=== PATIENT | female | born 1950 | race Caucasian/White ===

== ENCOUNTER 2021-03-18 14:14 | Inpatient (IN) | payer MEDICARE, OTHER ==
[2021-03-18] MEDS ORDERED: Diltiazem 125 MG in Sodium Chloride 0.9% 100 ML IV SCH (14:15)
--- NOTE | 2021-03-18 14:18 | EDM.PDOC ---
<Ender Malik - Last Filed: 03/18/21 18:20> ED HPI GENERAL MEDICAL PROBLEM - General Chief Complaint: Cardiovascular Problem Stated Complaint: EMS Time Seen by Provider: 03/18/21 14:17 - History of Present Illness INITIAL COMMENTS - FREE TEXT/NARRATIVE: History of present illness: [] This patient reports chest pain and headache for 2 or 3 weeks. She had Covid test in [place] today and it is positive. Her heart rate was uncontrolled with atrial fib. She has a history of atrial for but is only on aspirin because when she took blood thinner she bled. The patient has had fever and cough as well. History of CHF COPD and pulmonary embolus. Vital signs are stable and rate controlled with diltiazem at [place] and they called me for transfer. Review of systems: As per history of present illness and below otherwise all systems reviewed and negative. Past medical history: As per history of present illness and as reviewed below otherwise noncontributory. Surgical history: As per history of present illness and as reviewed below otherwise noncontributory. Social history: No reported history of drug or alcohol abuse. Family history: As per history of present illness and as reviewed below otherwise noncontributory. Physical exam: Constitutional - well developed, well-nourished and in no acute distress HEENT - normocephalic, no evidence of trauma - external nose and mouth normal - no mass in neck and no JVD - mucosae moist EYES - full EOM, PERRL, no icterus - no evidence of inflammation, injection, or drainage Respiratory - no respiratory distress, equal bilateral expansion, lungs clear to auscultation and no abnormal lung sounds Cardiovascular - Regular Rhythm with S1 and S2 appreciated and no murmur, gallop or rub. GI - abdomen soft without distension or organomegaly - normal bowel sounds - no guard or rebound Musculoskeletal no gross deformity of long bones or joints - no tenderness, swelling or edema Neurologic - Alert and oriented times four - CN II-XII grossly intact - motor sensory and coordination symmetrically normal Psychiatric - appropriate mood and affect with normal thought content Hematologic - No petechiae or purpura - mucosa appropriate color and sclera not pale - normal nail bed color and refill Integument - no rash or evidence of trauma - normal turgor Diagnostics: [] Therapeutics: [] Impression: [] Plan: [] Definitive disposition and diagnosis as appropriate pending reevaluation and review of above. - Related Data Allergies Allergy/AdvReac Type Severity Reaction Status Date / Time Penicillins Allergy Anaphylactic Verified 03/18/21 14:21 Shock tramadol Allergy Vomiting Verified 03/18/21 14:21 Home Meds: Home Meds hydrOXYzine HCL [Atarax] 25 mg PO Q8H PRN #15 tab 03/18/21 [Rx] ED ROS GENERAL - Review of Systems Review Of Systems: Comprehensive ROS is negative, except as noted in HPI. ED EXAM, GENERAL - Physical Exam Exam: See Below Free Text/Narrative:: My physical exam is in the HPI. #1 Interpretation EKG Interpretation Comments: EKG performed 03/18/2021 at 2:23 PM atrial fibrillation ventricular rate 97 QT duration 585 axis -47 late transition R wave in the precordium with nonspecific ST changes and T abnormalities. Compared to prior today from [place] rate is now controlled. Impression atrial fibrillation with controlled rate Course - Vital Signs Text/Narrative:: 1434 hrs. patient's rate is controlled on diltiazem drip. She still has signif icant chest pain. The patient has not been on anticoagulants for atrial for because she bleeds. The patient is waiting for CT of the chest and repeat troponin after which time she will be placed in our ICU unless some contraindication arises. At the end of my shift the CT report is pending and my partner will write the orders to admit to Dr. Sharp the ICU. Departure - Departure Disposition: Admitted As Inpatient 65 Clinical Impression: COVID-19 Prescriptions: hydrOXYzine HCL [Atarax] 25 mg PO Q8H PRN #15 tab PRN Reason: Dizziness Referrals: William Armstrong MD [Primary Care Provider] - Forms: ED Department Discharge <Kimo Palacios - Last Filed: 03/18/21 18:44> Course - Vital Signs Last Recorded V/S: Last Vital Signs Temp 96.7 F L 03/18/21 15:00 Pulse 91 03/18/21 17:48 Resp 20 03/18/21 17:48 BP 123/52 L 03/18/21 17:48 Pulse Ox 92 L 03/18/21 17:48 - Orders/Labs/Meds Orders: Active Orders 24 hr Category Date Time Status Patient Status [ADT] Routine ADT 03/18/21 18:43 Ordered Diltiazem [Cardizem] 100 mg Med 03/18/21 14:27 Active Sodium Chloride 0.9% [Normal Saline] 100 ml IV ASDIRECTED Medication Orders Diltiazem HCl 100 mg/ Sodium (Chloride) 100 mls @ 3.2 mls/hr IV ASDIRECTED [facility] Last Admin: 03/18/21 14:37 Dose: 3.2 mls/hr Documented by: JANIYA Labs: Laboratory Tests 03/18/21 Range/Units 14:36 Troponin I < 0.050 (0.000-0.056) ng/mL Meds: Medications Generic Name Dose Route Start Last Admin Trade Name Freq PRN Reason Stop Dose Admin Diltiazem HCl 100 mg/ Sodium 100 mls @ 3.2 mls/hr 03/18/21 14:27 03/18/21 14:37 Chloride IV 3.2 mls/hr ASDIRECTED [place] Administration Discontinued Medications Generic Name Dose Route Start Last Admin Trade Name Freq PRN Reason Stop Dose Admin Hydromorphone HCl 1 mg 03/18/21 15:04 03/18/21 15:21 Hydromorphone 1 Mg/Ml Syringe IVPUSH 03/18/21 15:05 1 mg ONETIME ONE Administration Diltiazem HCl 125 mg/ Sodium 125 mls @ 4 mls/hr 03/18/21 14:15 Chloride IV ASDIRECTED [facility] Iopamidol 80 ml 03/18/21 18:18 03/18/21 18:19 Iopamidol 755 Mg/Ml 500 Ml Multipack Bottle IVPUSH 03/18/21 18:19 80 ml ONETIME ONE Administration Ondansetron HCl 4 mg 03/18/21 15:03 03/18/21 15:21 Ondansetron 4 Mg/2 Ml Sdv IVPUSH 03/18/21 15:04 4 mg ONETIME ONE Administration Departure - Departure Time of Disposition: 18:44 Condition: Good Sepsis Event Note (ED) - Focused Exam Vital Signs: Vital Signs Temp Pulse Resp BP Pulse Ox 03/18/21 17:48 91 20 123/52 L 92 L 03/18/21 16:35 94 95 03/18/21 15:00 96.7 F L 94 20 116/62 94 L 03/18/21 14:17 97.3 F 99 18 100/83 95 - My Orders Last 24 Hours: My Active Orders 03/18/21 18:43 Patient Status [ADT] Routine - Assessment/Plan Last 24 Hours: My Active Orders 03/18/21 18:43 Patient Status [ADT] Routine
[2021-03-18] MEDS ORDERED: Diltiazem 100 MG in Sodium Chloride 0.9% 100 ML IV SCH ×5 (14:27→19:45)
[2021-03-18] MEDS ORDERED: Ondansetron 4 MG/2 ML SDV IVPUSH ONE (15:03)
[2021-03-18] MEDS ORDERED: HYDROmorphone 1 MG/ML Syringe IVPUSH ONE (15:04)
[2021-03-18] MEDS ORDERED: Iopamidol 755 MG/ML 500 ML Multipack Bottle IVPUSH ONE (18:18)
--- NOTE | 2021-03-18 18:35 | CT ---
INDICATION: COVID positive, history of pulmonary embolism, now with shortness of breath TECHNIQUE: CT chest pulmonary PE protocol acquired with 100 cc Isovue 370 IV contrast. COMPARISON: None FINDINGS: Cardiovascular structures: Normal vascular enhancement of the pulmonary arteries, no sign of pulmonary embolism. Cardiomegaly. No sign of aneurysm in the thoracic aorta. Mediastinum and lin: 1.0 cm prevascular and 1.1 cm right paratracheal lymphadenopathy. Lungs: Diffuse, faint ground-glass opacities. Calcified granuloma right lower lobe. Pleura and pericardium: No effusions. Chest wall and axilla: No mass or adenopathy. Upper abdomen: Status post cholecystectomy. Hepatic steatosis. Bones: Healed left 2nd rib fracture. No acute findings. IMPRESSION: No pulmonary embolism. Faint, diffuse ground-glass opacities may represent infection. Mediastinal adenopathy of unknown etiology. Cardiomegaly. Hepatic steatosis. Status post cholecystectomy. Please note that all CT scans at this facility use dose modulation, iterative reconstruction, and/or weight-based dosing when appropriate to reduce radiation dose to as low as reasonably achievable. Dictated by Nayeli Leblanc MD @ 03/18/2021 6:33:50 PM (Electronically Signed)
[2021-03-18] MEDS ORDERED: Ondansetron 4 MG/2 ML SDV IVPUSH PRN (19:02)
[2021-03-18] MEDS ORDERED: Albuterol/Ipratropium 4 GM Inhalation Spray INH PRN (19:03)
[2021-03-18] MEDS ORDERED: guaiFENesin 100 MG/5 ML Soln 10 ML UD Cup PO PRN (19:07)
--- NOTE | 2021-03-18 19:43 | PCM.HP.2 ---
H&P History of Present Illness - General Date of Service: 03/18/21 Admit Problem/Dx: Admission Diagnosis/Problem Admission Diagnosis/Problem Chest pain - History of Present Illness Initial Comments - Free Text/Narative: The patient is a 70-year-old female who was transferred to [facility] from [place] due to atrial fibrillation with RVR as well as a recent diagnosis of COVID-19 on 03/16. She has a significant past medical history of CHF, COPD, prior pulmonary embolism, HTN, GERD, PUD, Diabetes, Anxiety, depression, [place], aleep apnea, afib, obesity hyperventilation syndrome, and has not received any of her Covid vaccinations. She presented to the [place] emergency room with a 3-week history of worsening chest pain, which is substernal, 7 out of 10 in intensity, dull in nature, and nonradiating. Along with the chest pain, the patient has shortness of breath, productive cough of clear sputum, and fever. While in the ER in [place], she had a troponin done which was negative, but had a positive D-dimer. She also had a chest x-ray which showed an enlarged cardiac silhouette, and an EKG which revealed atrial fibrillation with RVR. As a result the patient was started on 20 mg of Cardizem IV and her heart rate responded and was between 90 and 100. She was then transferred to [place], and in the ER she was started on a Cardizem infusion, 10 mg, and is currently on this regimen. In [place], she had a CT angiogram of the chest in order to rule out pulmonary embolism. The results of the CT angiogram showed no embolus in any of the pulmonary vasculature. - Related Data Allergies/Adverse Reactions: Allergies Allergy/AdvReac Type Severity Reaction Status Date / Time Penicillins Allergy Anaphylactic Verified 03/18/21 14:21 Shock tramadol Allergy Vomiting Verified 03/18/21 14:21 Home Medications: Home Meds hydrOXYzine HCL [Atarax] 25 mg PO Q8H PRN #15 tab 03/18/21 [Rx] Past Medical History Cardiovascular History: Reports: Afib Other Cardiovascular History: pulmonary HTN, diabetes Respiratory History: Reports: COPD Gastrointestinal History: Reports: GERD Endocrine/Metabolic History: Reports: Diabetes, Type II Social & Family History - Tobacco Use Tobacco Use Status *Q: Never Tobacco User - Recreational Drug Use Recreational Drug Use: No H&P Review of Systems - Review of Systems: Review Of Systems: See Below General: Reports: Fever, Weakness, Fatigue Pulmonary: Reports: Shortness of Breath, Wheezing, Cough Cardiovascular: Reports: Chest Pain, Palpitations Gastrointestinal: Denies: Abdominal Pain, Constipation, Diarrhea Genitourinary: Denies: Dysuria Exam - Exam Exam: See Below - Vital Signs Vital Signs: Last Vital Signs Temp 96.7 F L 03/18/21 15:00 Pulse 88 03/18/21 18:51 Resp 20 03/18/21 17:48 BP 128/52 L 03/18/21 18:51 Pulse Ox 92 L 03/18/21 17:48 Weight: 261 lb - Exam General: Alert, Oriented, Mild Distress HEENT: Mucosa Moist & Mentor Lungs: Wheezing Cardiovascular: Irregular Rhythm GI/Abdominal Exam: Normal Bowel Sounds, Soft, Non-Tender - Patient Data Lab Results Last 24 hrs: Laboratory Results - last 24 hr 03/18/21 Range/Units 14:36 Troponin I < 0.050 (0.000-0.056) ng/mL Sepsis Event Note - Evaluation Sepsis Screening Result: No Definite Risk - Focused Exam Vital Signs: Vital Signs Temp Pulse Resp BP Pulse Ox 03/18/21 18:51 88 128/52 L 03/18/21 18:21 91 138/76 03/18/21 17:48 91 20 123/52 L 92 L 03/18/21 17:20 95 91 L 03/18/21 16:35 94 95 03/18/21 15:00 96.7 F L 94 20 116/62 94 L 03/18/21 14:17 97.3 F 99 18 100/83 95 - Problem List (1) Atrial fibrillation with rapid ventricular response SNOMED Code(s): 785705960677406 ICD Code: I48.91 - UNSPECIFIED ATRIAL FIBRILLATION Status: Acute Current Visit: Yes (2) Diabetes SNOMED Code(s): 97764930 ICD Code: E11.9 - TYPE 2 DIABETES MELLITUS WITHOUT COMPLICATIONS Status: Acute Current Visit: Yes (3) COVID-19 SNOMED Code(s): 553030575 ICD Code: U07.1 - COVID-19 Status: Acute Current Visit: Yes Problem List Initiated/Reviewed/Updated: Yes Orders Last 24hrs: Active Orders 24 hr Category Date Time Status Patient Status [ADT] Routine ADT 03/18/21 18:43 Active Antiembolic Devices [RC] PER UNIT ROUTINE Care 03/18/21 19:00 Active Oxygen Therapy [RC] PRN Care 03/18/21 18:57 Active RT Post Treatment Assessment [RC] Click to Edit Care 03/18/21 19:03 Active RT Pre-Treatment Assessment [RC] Click to Edit Care 03/18/21 19:03 Active VTE/DVT Education [RC] PER UNIT ROUTINE Care 03/18/21 18:57 Active Vital Signs [RC] Q4H Care 03/18/21 18:57 Active Acetaminophen [TylenoL] Med 03/18/21 18:57 Active 650 mg PO Q4H PRN Albuterol/Ipratropium [Combivent Respimat] Med 03/18/21 19:03 Active 1 gm INH Q4H PRN Diltiazem [Cardizem] 100 mg Med 03/18/21 14:27 Active Sodium Chloride 0.9% [Normal Saline] 100 ml IV ASDIRECTED Ondansetron [Zofran] Med 03/18/21 19:02 Active 4 mg IVPUSH Q4H PRN Pantoprazole [ProTONIX IV] 40 mg Med 03/18/21 19:15 Active Sodium Chloride 0.9% [Normal Saline] 10 ml IV Q24H Remdesivir 100 mg Med 03/19/21 20:00 Active Sodium Chloride 0.9% [Normal Saline] 100 ml IV Q24H Remdesivir 200 mg Med 03/18/21 20:00 Active Sodium Chloride 0.9% [Normal Saline] 250 ml IV ONETIME dexAMETHasone Med 03/18/21 20:00 Active 6 mg PO Q24H guaiFENesin [Robitussin] Med 03/18/21 19:07 Active 200 mg PO Q6H PRN Sequential Compression Device [OM.PC] Per Unit Routine Oth 03/18/21 18:58 Ordered Resuscitation Status Routine Resus Stat 03/18/21 18:57 Ordered Medication Orders Acetaminophen (Acetaminophen 325 Mg Tab) 650 mg PO Q4H PRN PRN Reason: Pain (Mild 1-3)/fever Albuterol/Ipratropium (Albuterol/Ipratropium 4 Gm Inhalation [place]) 1 gm INH Q4H PRN PRN Reason: Dyspnea Dexamethasone (Dexamethasone 4 Mg Tab) 6 mg PO Q24H [place] Guaifenesin (Guaifenesin 100 Mg/5 Ml Soln 10 Ml Ud Cup) 200 mg PO Q6H PRN PRN Reason: Cough Diltiazem HCl 100 mg/ Sodium (Chloride) 100 mls @ 3.2 mls/hr IV ASDIRECTED [facility] Last Admin: 03/18/21 14:37 Dose: 3.2 mls/hr Documented by: JANIYA Pantoprazole Sodium 40 mg/ (Sodium Chloride) 10 mls @ 300 mls/hr IV Q24H [place] Remdesivir 200 mg/ Sodium (Chloride) 250 mls @ 250 mls/hr IV ONETIME ONE Stop: 03/18/21 20:01 Remdesivir 100 mg/ Sodium (Chloride) 100 mls @ 100 mls/hr IV Q24H [facility] Stop: 03/22/21 20:59 Ondansetron HCl (Ondansetron 4 Mg/2 Ml Sdv) 4 mg IVPUSH Q4H PRN PRN Reason: Nausea/Vomiting Assessment/Plan Comment:: Admit the patient to the ICU, DVT prophylaxis with with SCDs because patient has bleeding issues with PUD, GI prophylaxis with pantoprazole, diabetic diet, DNI/DNR. 1. Atrial fibrillation with RVR -The patient received 20 mg of Cardizem IV while in [place] which brought her heart rate to 90-100 in response. She is currently on 10 mg Cardizem drip and her heart rate is in the 90s. We will eventually convert her to oral Cardizem. She is on telemetry and we will continue to monitor her heart's electrical activity. Her troponins were negative in [place], and an additional troponin was negative here in [place] and thus do not need to be monitored further. 2. COVID-19 pneumonia -The patient has been started on remdesivir, she was given a 200 mg IV loading dose for 8 PM today, and will be given 100 mg IV for 4 doses from days 2-5. She will also be given dexamethasone 6 mg p.o. once a day starting at 8 PM today. She will also be given Combivent every 4 hours for shortness of breath. For cough, Robitussin cough syrup has been added. We will continue to monitor her oxygen levels, and give as needed. For fever and pain, we have added Tylenol 650 as needed. For nausea, we have added Zofran 4 mg IV as needed. 3. Diabetes -ISS, diabetic diet
[2021-03-18] MEDS ORDERED: Dexamethasone 4 MG Tab PO SCH (20:00)
[2021-03-18] MEDS ORDERED: REMDESIVIR 200 MG in Sodium Chloride 0.9% 250 ML IV ONE (20:00)
[2021-03-18] MEDS ORDERED: Glucagon,Human Recombinant 1 MG Vial IM PRN (20:16)
[2021-03-18] MEDS ORDERED: 50% Dextrose in Water 50 ML Syringe IVPUSH PRN (20:16)
[2021-03-18] MEDS: Pantoprazole 40 MG in Sodium Chloride 0.9% 10 ML IV SCH (20:36)
[2021-03-18] MEDS: Insulin Aspart 100 Units/ML 3 ML Pen SUBCUT SCH (21:12)
--- NOTE | 2021-03-18 22:29 | PN ---
THC Physician - Brief Progress [id number]/24/2021 22:24[facility] Lyssa del cid, [place] - ANGEL (SADAF) - ANGEL BOODARIN MCGEE, Covid +Date of Service 03/18/2021 22:24HPI/Ev ents of Note 70 y old woman with chest pain found to have AF RVR and COVOD positive; placed on diltia zem. Now rate controlled.On video restingLabs ok from beforeD/w RN- wean diltiazem down further from 2.5 mg/h No PE on CT Not on full antocoagulation for prior F due to bleeding per notesTrop I nlDdimer elevated per reportRemdesivir for COVIDDexamethasone startedSCDDM on sliding scale insulinCheck BMPI nterventions Major-Arrhythmia - evaluation and management, Infection - evaluation and managementElect ronically Signed by: Jay Jay Ayala) on 03/18/2021 22:29
[2021-03-18 23:15] LABS: BLOOD UREA NITROGEN,BUN 11 mg/dL (7.0-18.0); CHLORIDE,CL 97 mmol/L (98-107); GLUCOSE RANDOM 161 mg/dL (74-106); POTASSIUM,K 4.6 mmol/L (3.5-5.1); SODIUM,NA 135 mmol/L (136-145)
[2021-03-18] MEDS: Acetaminophen 325 MG Tab PO PRN (23:39)
[2021-03-19] MEDS ORDERED: Magnesium Sulfate/Water 2 GM in Premix Bag 1 BAG IV ONE (03:52)
--- NOTE | 2021-03-19 05:01 | PN ---
THC Physician - Brief Progress [id number]/25/2021 04:59[facility] maria eugenia Joffre, FLETCHER - ANGEL (SADAF) - DARIN TURK Covid +Date of Service 03/19/2021 04:59HPI/Ev ents of Note HR,BP controlled; wean down diltiazemIf remains stable plan oral medsReplete MgD/w RNInt erventions Major-Electrolyte abnormality - evaluation and management
[2021-03-19 06:51] LABS: HEMOGLOBIN A1C 6.7 %
[2021-03-19 07:09] LABS: BLOOD UREA NITROGEN,BUN 12 mg/dL (7.0-18.0); CHLORIDE,CL 99 mmol/L (98-107); GLUCOSE RANDOM 122 mg/dL (74-106); POTASSIUM,K 4.7 mmol/L (3.5-5.1); SODIUM,NA 137 mmol/L (136-145)
[2021-03-19] MEDS ORDERED: Insulin Aspart 100 Units/ML 3 ML Pen SUBCUT SCH (07:30)
[2021-03-19] MEDS: Insulin Aspart 100 Units/ML 3 ML Pen SUBCUT SCH ×3 (08:29→17:06)
[2021-03-19] MEDS: Dexamethasone 4 MG Tab PO SCH (10:30)
[2021-03-19] MEDS: REMDESIVIR 100 MG in Sodium Chloride 0.9% 100 ML IV SCH (10:30)
[2021-03-19] MEDS ORDERED: Furosemide 40 MG/4 ML VIAL ONE (10:34)
[2021-03-19] MEDS: guaiFENesin/Dextromethorphan 100-10 MG/5 ML Soln 10 ML Cup PO PRN ×2 (10:36→19:30)
[2021-03-19] MEDS: Furosemide 40 MG Tab PO SCH (10:43)
[2021-03-19] MEDS: Metoprolol Tartrate 25 MG Tab PO SCH ×2 (10:44→20:00)
[2021-03-19] MEDS: Diltiazem 120 MG Cap.CD PO SCH (10:47)
--- NOTE | 2021-03-19 13:49 | PCM.PN ---
- General Info Date of Service: 03/19/21 Subjective Update: Patient states she feels warm but denies chills. Per documentation patient temperature 98.1 F. Patient denies nausea, vomiting, abdominal pain, diarrhea. Patient denies chest pain or shortness of breath. Patient states coughing spells. - Review of Systems General: Denies: Fever, Chills Pulmonary: Reports: Cough. Denies: Shortness of Breath Cardiovascular: Denies: Chest Pain, Dyspnea on Exertion, Edema Gastrointestinal: Reports: Decreased Appetite. Denies: Abdominal Pain, Diarrhea, Nausea, Vomiting Neurological: Denies: Confusion, Dizziness, Headache Psychiatric: Denies: Confusion - Patient Data Vitals - Most Recent: Last Vital Signs Temp 98.0 F 03/19/21 12:00 Pulse 90 03/19/21 10:47 Resp 16 03/19/21 12:54 BP 112/47 L 03/19/21 12:54 Pulse Ox 97 03/19/21 12:54 Weight - Most Recent: 258 lb 9.636 oz I&O - Last 24 Hours: Intake & Output 03/18/21 03/19/21 03/19/21 22:59 06:59 14:59 Intake Total 200 Output Total 550 Balance -350 Lab Results Last 24 Hours: Laboratory Results - last 24 hr 03/18/21 03/18/21 03/18/21 Range/Units 14:36 20:39 22:45 WBC (4.0-11.0) K/uL RBC (4.30-5.90) M/uL Hgb (12.0-16.0) g/dL Hct (36.0-46.0) % MCV (80.0-98.0) fL MCH (27.0-32.0) pg MCHC (31.0-37.0) g/dL RDW Std Deviation (28.0-62.0) fl RDW Coeff of Isaias (11.0-15.0) % Plt Count (150-400) K/uL MPV (7.40-12.00) fL Neut % (Auto) (48.0-80.0) % Lymph % (Auto) (16.0-40.0) % [place] % (Auto) (0.0-15.0) % Eos % (Auto) (0.0-7.0) % Baso % (Auto) (0.0-1.5) % Neut # (Auto) (1.4-5.7) K/uL Lymph # (Auto) (0.6-2.4) K/uL [place] # (Auto) (0.0-0.8) K/uL Eos # (Auto) (0.0-0.7) K/uL Baso # (Auto) (0.0-0.1) K/uL Nucleated RBC % /100WBC Nucleated RBCs # K/uL Sodium 135 L (136-145) mmol/L Potassium 4.6 (3.5-5.1) mmol/L Chloride 97 L (98-107) mmol/L Carbon Dioxide 33.0 H (21.0-32.0) mmol/L BUN 11 (7.0-18.0) mg/dL Creatinine 0.9 (0.6-1.0) mg/dL Est Cr Clr Drug Dosing 47.43 mL/min Estimated GFR (MDRD) > 60.0 ml/min Glucose 161 H (74-106) mg/dL POC Glucose 162 H (70-99) mg/dL Hemoglobin A1c (4.5 - 6.2) % Calcium 8.2 L (8.5-10.1) mg/dL Magnesium 1.7 L (1.8-2.4) mg/dL Total Bilirubin (0.2-1.0) mg/dL AST (15-37) IU/L ALT (14-63) IU/L Alkaline Phosphatase (46-116) U/L Troponin I < 0.050 (0.000-0.056) ng/mL Total Protein (6.4-8.2) g/dL Albumin (3.4-5.0) g/dL Globulin (2.6-4.0) g/dL Albumin/Globulin Ratio (0.9-1.6) TSH, Ultra Sensitive (0.36-3.74) uIU/mL 03/19/21 03/19/21 03/19/21 Range/Units 05:30 05:30 05:30 WBC 3.82 L (4.0-11.0) K/uL RBC 4.72 (4.30-5.90) M/uL Hgb 12.5 (12.0-16.0) g/dL Hct 40.7 (36.0-46.0) % MCV 86.2 (80.0-98.0) fL MCH 26.5 L (27.0-32.0) pg MCHC 30.7 L (31.0-37.0) g/dL RDW Std Deviation 47.6 (28.0-62.0) fl RDW Coeff of Isaias 15 (11.0-15.0) % Plt Count 171 (150-400) K/uL MPV 10.90 (7.40-12.00) fL Neut % (Auto) 57.6 (48.0-80.0) % Lymph % (Auto) 28.5 (16.0-40.0) % [place] % (Auto) 13.9 (0.0-15.0) % Eos % (Auto) 0.0 (0.0-7.0) % Baso % (Auto) 0.0 (0.0-1.5) % Neut # (Auto) 2.2 (1.4-5.7) K/uL Lymph # (Auto) 1.1 (0.6-2.4) K/uL [place] # (Auto) 0.5 (0.0-0.8) K/uL Eos # (Auto) 0.0 (0.0-0.7) K/uL Baso # (Auto) 0.0 (0.0-0.1) K/uL Nucleated RBC % 0.0 /100WBC Nucleated RBCs # 0 K/uL Sodium 137 (136-145) mmol/L Potassium 4.7 (3.5-5.1) mmol/L Chloride 99 (98-107) mmol/L Carbon Dioxide 33.0 H (21.0-32.0) mmol/L BUN 12 (7.0-18.0) mg/dL Creatinine 0.9 (0.6-1.0) mg/dL Est Cr Clr Drug Dosing 47.43 mL/min Estimated GFR (MDRD) > 60.0 ml/min Glucose 122 H (74-106) mg/dL POC Glucose (70-99) mg/dL Hemoglobin A1c 6.7 H (4.5 - 6.2) % Calcium 8.3 L (8.5-10.1) mg/dL Magnesium (1.8-2.4) mg/dL Total Bilirubin 0.2 (0.2-1.0) mg/dL AST 45 H (15-37) IU/L ALT 22 (14-63) IU/L Alkaline Phosphatase 77 (46-116) U/L Troponin I (0.000-0.056) ng/mL Total Protein 7.8 (6.4-8.2) g/dL Albumin 3.0 L (3.4-5.0) g/dL Globulin 4.8 H (2.6-4.0) g/dL Albumin/Globulin Ratio 0.6 L (0.9-1.6) TSH, Ultra Sensitive (0.36-3.74) uIU/mL 03/19/21 03/19/21 03/19/21 Range/Units 05:30 06:48 11:05 WBC (4.0-11.0) K/uL RBC (4.30-5.90) M/uL Hgb (12.0-16.0) g/dL Hct (36.0-46.0) % MCV (80.0-98.0) fL MCH (27.0-32.0) pg MCHC (31.0-37.0) g/dL RDW Std Deviation (28.0-62.0) fl RDW Coeff of Isaias (11.0-15.0) % Plt Count (150-400) K/uL MPV (7.40-12.00) fL Neut % (Auto) (48.0-80.0) % Lymph % (Auto) (16.0-40.0) % [place] % (Auto) (0.0-15.0) % Eos % (Auto) (0.0-7.0) % Baso % (Auto) (0.0-1.5) % Neut # (Auto) (1.4-5.7) K/uL Lymph # (Auto) (0.6-2.4) K/uL [place] # (Auto) (0.0-0.8) K/uL Eos # (Auto) (0.0-0.7) K/uL Baso # (Auto) (0.0-0.1) K/uL Nucleated RBC % /100WBC Nucleated RBCs # K/uL Sodium (136-145) mmol/L Potassium (3.5-5.1) mmol/L Chloride (98-107) mmol/L Carbon Dioxide (21.0-32.0) mmol/L BUN (7.0-18.0) mg/dL Creatinine (0.6-1.0) mg/dL Est Cr Clr Drug Dosing mL/min Estimated GFR (MDRD) ml/min Glucose (74-106) mg/dL POC Glucose 120 H (70-99) mg/dL Hemoglobin A1c (4.5 - 6.2) % Calcium (8.5-10.1) mg/dL Magnesium 2.1 (1.8-2.4) mg/dL Total Bilirubin (0.2-1.0) mg/dL AST (15-37) IU/L ALT (14-63) IU/L Alkaline Phosphatase (46-116) U/L Troponin I (0.000-0.056) ng/mL Total Protein (6.4-8.2) g/dL Albumin (3.4-5.0) g/dL Globulin (2.6-4.0) g/dL Albumin/Globulin Ratio (0.9-1.6) TSH, Ultra Sensitive 0.88 (0.36-3.74) uIU/mL 03/19/21 Range/Units 12:24 WBC (4.0-11.0) K/uL RBC (4.30-5.90) M/uL Hgb (12.0-16.0) g/dL Hct (36.0-46.0) % MCV (80.0-98.0) fL MCH (27.0-32.0) pg MCHC (31.0-37.0) g/dL RDW Std Deviation (28.0-62.0) fl RDW Coeff of Isaias (11.0-15.0) % Plt Count (150-400) K/uL MPV (7.40-12.00) fL Neut % (Auto) (48.0-80.0) % Lymph % (Auto) (16.0-40.0) % [place] % (Auto) (0.0-15.0) % Eos % (Auto) (0.0-7.0) % Baso % (Auto) (0.0-1.5) % Neut # (Auto) (1.4-5.7) K/uL Lymph # (Auto) (0.6-2.4) K/uL [place] # (Auto) (0.0-0.8) K/uL Eos # (Auto) (0.0-0.7) K/uL Baso # (Auto) (0.0-0.1) K/uL Nucleated RBC % /100WBC Nucleated RBCs # K/uL Sodium (136-145) mmol/L Potassium (3.5-5.1) mmol/L Chloride (98-107) mmol/L Carbon Dioxide (21.0-32.0) mmol/L BUN (7.0-18.0) mg/dL Creatinine (0.6-1.0) mg/dL Est Cr Clr Drug Dosing mL/min Estimated GFR (MDRD) ml/min Glucose (74-106) mg/dL POC Glucose 115 H (70-99) mg/dL Hemoglobin A1c (4.5 - 6.2) % Calcium (8.5-10.1) mg/dL Magnesium (1.8-2.4) mg/dL Total Bilirubin (0.2-1.0) mg/dL AST (15-37) IU/L ALT (14-63) IU/L Alkaline Phosphatase (46-116) U/L Troponin I (0.000-0.056) ng/mL Total Protein (6.4-8.2) g/dL Albumin (3.4-5.0) g/dL Globulin (2.6-4.0) g/dL Albumin/Globulin Ratio (0.9-1.6) TSH, Ultra Sensitive (0.36-3.74) uIU/mL Med Orders - Current: Current Medications Acetaminophen (Acetaminophen 325 Mg Tab) 650 mg PO Q4H PRN PRN Reason: Pain (Mild 1-3)/fever Last Admin: 03/18/21 23:39 Dose: 650 mg Documented by: Albuterol/Ipratropium (Albuterol/Ipratropium 4 Gm Inhalation [place]) 1 gm INH Q4H PRN PRN Reason: Dyspnea Last Admin: 03/19/21 06:34 Dose: 2 puff Documented by: Dexamethasone (Dexamethasone 4 Mg Tab) 6 mg PO DAILY@1000 [place] Last Admin: 03/19/21 10:30 Dose: 6 mg Documented by: Dextrose/Water (50% Dextrose In Water 50 Ml Syringe) 50 ml IVPUSH ASDIRECTED PRN PRN Reason: Hypoglycemia Diltiazem HCl (Diltiazem 120 Mg Cap.Cd) 120 mg PO DAILY [facility] Last Admin: 03/19/21 10:47 Dose: 120 mg Documented by: Furosemide (Furosemide 40 Mg Tab) 40 mg PO DAILY [facility] Last Admin: 03/19/21 10:43 Dose: 40 mg Documented by: Glucagon (Glucagon,Human Recombinant 1 Mg Vial) 1 mg IM ASDIRECTED PRN PRN Reason: Hypoglycemia Guaifenesin/Dextromethorphan (Guaifenesin/Dextromethorphan 100-10 Mg/5 Ml Soln 10 Ml Cup) 10 ml PO Q4H PRN PRN Reason: Cough Last Admin: 03/19/21 10:36 Dose: 10 ml Documented by: Pantoprazole Sodium 40 mg/ (Sodium Chloride) 10 mls @ 300 mls/hr IV Q24H [facility] Last Admin: 03/18/21 20:36 Dose: 300 mls/hr Documented by: Remdesivir 100 mg/ Sodium (Chloride) 100 mls @ 100 mls/hr IV DAILY@1000 [facility] Stop: 03/22/21 10:59 Last Admin: 03/19/21 10:30 Dose: 100 mls/hr Documented by: Diltiazem HCl 100 mg/ Sodium (Chloride) 100 mls @ 3.2 mls/hr IV NOW [facility]; Pro tocol Insulin Aspart (Insulin Aspart 100 Units/Ml 3 Ml Pen) 0 unit SUBCUT TIDAC [facility]; Protocol Last Admin: 03/19/21 12:36 Dose: Not Given Documented by: Metoprolol Tartrate (Metoprolol Tartrate 25 Mg Tab) 25 mg PO Q12HR [facility] Last Admin: 03/19/21 10:44 Dose: 25 mg Documented by: Ondansetron HCl (Ondansetron 4 Mg/2 Ml Sdv) 4 mg IVPUSH Q4H PRN PRN Reason: Nausea/Vomiting Discontinued Medications Dexamethasone (Dexamethasone 4 Mg Tab) 6 mg PO Q24H [facility] Last Admin: 03/18/21 21:08 Dose: Not Given Documented by: Furosemide (Furosemide 40 Mg/4 Ml Vial) Confirm Administered Dose 40 mg .ROUTE .[facility] Stop: 03/19/21 10:35 Last Admin: 03/19/21 10:49 Dose: Not Given Documented by: Guaifenesin (Guaifenesin 100 Mg/5 Ml Soln 10 Ml Ud Cup) 200 mg PO Q6H PRN PRN Reason: Cough Hydromorphone HCl (Hydromorphone 1 Mg/Ml Syringe) 1 mg IVPUSH ONETIME ONE Stop: 03/18/21 15:05 Last Admin: 03/18/21 15:21 Dose: 1 mg Documented by: Diltiazem HCl 125 mg/ Sodium (Chloride) 125 mls @ 4 mls/hr IV ASDIRECTED [place] Diltiazem HCl 100 mg/ Sodium (Chloride) 100 mls @ 3.2 mls/hr IV ASDIRECTED [place] Last Infusion: 03/19/21 04:03 Dose: 1 mls/hr Documented by: Remdesivir 200 mg/ Sodium (Chloride) 250 mls @ 250 mls/hr IV ONETIME ONE Stop: 03/18/21 20:01 Last Admin: 03/18/21 20:37 Dose: Not Given Documented by: Diltiazem HCl 100 mg/ Sodium (Chloride) 100 mls @ 5 mls/hr IV NOW [facility]; Protocol Magnesium Sulfate 2 gm/ Premix 50 mls @ 12.5 mls/hr IV ONETIME ONE Stop: 03/19/21 07:51 Last Admin: 03/19/21 04:01 Dose: 12.5 mls/hr Documented by: Insulin Aspart (Insulin Aspart 100 Units/Ml 3 Ml Pen) 0 unit SUBCUT TIDAC [facility]; Protocol Iopamidol (Iopamidol 755 Mg/Ml 500 Ml Multipack Bottle) 80 ml IVPUSH ONETIME ONE Stop: 03/18/21 18:19 Last Admin: 03/18/21 18:19 Dose: 80 ml Documented by: Ondansetron HCl (Ondansetron 4 Mg/2 Ml Sdv) 4 mg IVPUSH ONETIME ONE Stop: 03/18/21 15:04 Last Admin: 03/18/21 15:21 Dose: 4 mg Documented by: - Exam Quality Assessment: Supplemental Oxygen General: Alert, Oriented Lungs: Clear to Auscultation, Normal Respiratory Effort Cardiovascular: Regular Rate, Irregular Rhythm GI/Abdominal Exam: Soft, Non-Tender, No Distention Extremities: No Pedal Edema Psy/Mental Status: Alert - Patient Data Lab Results Last 24 hrs: Laboratory Results - last 24 hr 03/18/21 03/18/21 03/18/21 Range/Units 14:36 20:39 22:45 WBC (4.0-11.0) K/uL RBC (4.30-5.90) M/uL Hgb (12.0-16.0) g/dL Hct (36.0-46.0) % MCV (80.0-98.0) fL MCH (27.0-32.0) pg MCHC (31.0-37.0) g/dL RDW Std Deviation (28.0-62.0) fl RDW Coeff of Isaias (11.0-15.0) % Plt Count (150-400) K/uL MPV (7.40-12.00) fL Neut % (Auto) (48.0-80.0) % Lymph % (Auto) (16.0-40.0) % [place] % (Auto) (0.0-15.0) % Eos % (Auto) (0.0-7.0) % Baso % (Auto) (0.0-1.5) % Neut # (Auto) (1.4-5.7) K/uL Lymph # (Auto) (0.6-2.4) K/uL [place] # (Auto) (0.0-0.8) K/uL Eos # (Auto) (0.0-0.7) K/uL Baso # (Auto) (0.0-0.1) K/uL Nucleated RBC % /100WBC Nucleated RBCs # K/uL Sodium 135 L (136-145) mmol/L Potassium 4.6 (3.5-5.1) mmol/L Chloride 97 L (98-107) mmol/L Carbon Dioxide 33.0 H (21.0-32.0) mmol/L BUN 11 (7.0-18.0) mg/dL Creatinine 0.9 (0.6-1.0) mg/dL Est Cr Clr Drug Dosing 47.43 mL/min Estimated GFR (MDRD) > 60.0 ml/min Glucose 161 H (74-106) mg/dL POC Glucose 162 H (70-99) mg/dL Hemoglobin A1c (4.5 - 6.2) % Calcium 8.2 L (8.5-10.1) mg/dL Magnesium 1.7 L (1.8-2.4) mg/dL Total Bilirubin (0.2-1.0) mg/dL AST (15-37) IU/L ALT (14-63) IU/L Alkaline Phosphatase (46-116) U/L Troponin I < 0.050 (0.000-0.056) ng/mL Total Protein (6.4-8.2) g/dL Albumin (3.4-5.0) g/dL Globulin (2.6-4.0) g/dL Albumin/Globulin Ratio (0.9-1.6) TSH, Ultra Sensitive (0.36-3.74) uIU/mL 03/19/21 03/19/21 03/19/21 Range/Units 05:30 05:30 05:30 WBC 3.82 L (4.0-11.0) K/uL RBC 4.72 (4.30-5.90) M/uL Hgb 12.5 (12.0-16.0) g/dL Hct 40.7 (36.0-46.0) % MCV 86.2 (80.0-98.0) fL MCH 26.5 L (27.0-32.0) pg MCHC 30.7 L (31.0-37.0) g/dL RDW Std Deviation 47.6 (28.0-62.0) fl RDW Coeff of Isaias 15 (11.0-15.0) % Plt Count 171 (150-400) K/uL MPV 10.90 (7.40-12.00) fL Neut % (Auto) 57.6 (48.0-80.0) % Lymph % (Auto) 28.5 (16.0-40.0) % [place] % (Auto) 13.9 (0.0-15.0) % Eos % (Auto) 0.0 (0.0-7.0) % Baso % (Auto) 0.0 (0.0-1.5) % Neut # (Auto) 2.2 (1.4-5.7) K/uL Lymph # (Auto) 1.1 (0.6-2.4) K/uL [place] # (Auto) 0.5 (0.0-0.8) K/uL Eos # (Auto) 0.0 (0.0-0.7) K/uL Baso # (Auto) 0.0 (0.0-0.1) K/uL Nucleated RBC % 0.0 /100WBC Nucleated RBCs # 0 K/uL Sodium 137 (136-145) mmol/L Potassium 4.7 (3.5-5.1) mmol/L Chloride 99 (98-107) mmol/L Carbon Dioxide 33.0 H (21.0-32.0) mmol/L BUN 12 (7.0-18.0) mg/dL Creatinine 0.9 (0.6-1.0) mg/dL Est Cr Clr Drug Dosing 47.43 mL/min Estimated GFR (MDRD) > 60.0 ml/min Glucose 122 H (74-106) mg/dL POC Glucose (70-99) mg/dL Hemoglobin A1c 6.7 H (4.5 - 6.2) % Calcium 8.3 L (8.5-10.1) mg/dL Magnesium (1.8-2.4) mg/dL Total Bilirubin 0.2 (0.2-1.0) mg/dL AST 45 H (15-37) IU/L ALT 22 (14-63) IU/L Alkaline Phosphatase 77 (46-116) U/L Troponin I (0.000-0.056) ng/mL Total Protein 7.8 (6.4-8.2) g/dL Albumin 3.0 L (3.4-5.0) g/dL Globulin 4.8 H (2.6-4.0) g/dL Albumin/Globulin Ratio 0.6 L (0.9-1.6) TSH, Ultra Sensitive (0.36-3.74) uIU/mL 03/19/21 03/19/21 03/19/21 Range/Units 05:30 06:48 11:05 WBC (4.0-11.0) K/uL RBC (4.30-5.90) M/uL Hgb (12.0-16.0) g/dL Hct (36.0-46.0) % MCV (80.0-98.0) fL MCH (27.0-32.0) pg MCHC (31.0-37.0) g/dL RDW Std Deviation (28.0-62.0) fl RDW Coeff of Isaias (11.0-15.0) % Plt Count (150-400) K/uL MPV (7.40-12.00) fL Neut % (Auto) (48.0-80.0) % Lymph % (Auto) (16.0-40.0) % [place] % (Auto) (0.0-15.0) % Eos % (Auto) (0.0-7.0) % Baso % (Auto) (0.0-1.5) % Neut # (Auto) (1.4-5.7) K/uL Lymph # (Auto) (0.6-2.4) K/uL [place] # (Auto) (0.0-0.8) K/uL Eos # (Auto) (0.0-0.7) K/uL Baso # (Auto) (0.0-0.1) K/uL Nucleated RBC % /100WBC Nucleated RBCs # K/uL Sodium (136-145) mmol/L Potassium (3.5-5.1) mmol/L Chloride (98-107) mmol/L Carbon Dioxide (21.0-32.0) mmol/L BUN (7.0-18.0) mg/dL Creatinine (0.6-1.0) mg/dL Est Cr Clr Drug Dosing mL/min Estimated GFR (MDRD) ml/min Glucose (74-106) mg/dL POC Glucose 120 H (70-99) mg/dL Hemoglobin A1c (4.5 - 6.2) % Calcium (8.5-10.1) mg/dL Magnesium 2.1 (1.8-2.4) mg/dL Total Bilirubin (0.2-1.0) mg/dL AST (15-37) IU/L ALT (14-63) IU/L Alkaline Phosphatase (46-116) U/L Troponin I (0.000-0.056) ng/mL Total Protein (6.4-8.2) g/dL Albumin (3.4-5.0) g/dL Globulin (2.6-4.0) g/dL Albumin/Globulin Ratio (0.9-1.6) TSH, Ultra Sensitive 0.88 (0.36-3.74) uIU/mL 03/19/21 Range/Units 12:24 WBC (4.0-11.0) K/uL RBC (4.30-5.90) M/uL Hgb (12.0-16.0) g/dL Hct (36.0-46.0) % MCV (80.0-98.0) fL MCH (27.0-32.0) pg MCHC (31.0-37.0) g/dL RDW Std Deviation (28.0-62.0) fl RDW Coeff of Isaias (11.0-15.0) % Plt Count (150-400) K/uL MPV (7.40-12.00) fL Neut % (Auto) (48.0-80.0) % Lymph % (Auto) (16.0-40.0) % [place] % (Auto) (0.0-15.0) % Eos % (Auto) (0.0-7.0) % Baso % (Auto) (0.0-1.5) % Neut # (Auto) (1.4-5.7) K/uL Lymph # (Auto) (0.6-2.4) K/uL [place] # (Auto) (0.0-0.8) K/uL Eos # (Auto) (0.0-0.7) K/uL Baso # (Auto) (0.0-0.1) K/uL Nucleated RBC % /100WBC Nucleated RBCs # K/uL Sodium (136-145) mmol/L Potassium (3.5-5.1) mmol/L Chloride (98-107) mmol/L Carbon Dioxide (21.0-32.0) mmol/L BUN (7.0-18.0) mg/dL Creatinine (0.6-1.0) mg/dL Est Cr Clr Drug Dosing mL/min Estimated GFR (MDRD) ml/min Glucose (74-106) mg/dL POC Glucose 115 H (70-99) mg/dL Hemoglobin A1c (4.5 - 6.2) % Calcium (8.5-10.1) mg/dL Magnesium (1.8-2.4) mg/dL Total Bilirubin (0.2-1.0) mg/dL AST (15-37) IU/L ALT (14-63) IU/L Alkaline Phosphatase (46-116) U/L Troponin I (0.000-0.056) ng/mL Total Protein (6.4-8.2) g/dL Albumin (3.4-5.0) g/dL Globulin (2.6-4.0) g/dL Albumin/Globulin Ratio (0.9-1.6) TSH, Ultra Sensitive (0.36-3.74) uIU/mL Result Diagrams: 03/19/21 05:30 03/19/21 05:30 Sepsis Event Note - Evaluation Sepsis Screening Result: No Definite Risk - Focused Exam Vital Signs: Vital Signs Temp Pulse Resp BP BP Pulse Ox 03/19/21 12:54 16 112/47 L 97 03/19/21 12:00 98.0 F 16 120/45 L 94 L 03/19/21 11:00 98.0 F 17 117/58 L 91 L 03/19/21 10:47 90 117/58 L 03/19/21 10:44 85 117/58 L 03/19/21 10:00 14 103/46 L 92 L 03/19/21 09:00 97.9 F 22 H 109/66 87 L 03/19/21 08:00 98.1 F 11 L 152/68 H 89 L 03/19/21 07:00 98.1 F 18 117/50 L 93 L 03/19/21 06:00 11 L 130/64 92 L 03/19/21 05:00 14 118/55 L 92 L 03/19/21 04:00 96.9 F 12 119/51 L 92 L 03/19/21 03:00 14 105/48 L 94 L 03/19/21 02:00 15 113/57 L 93 L - Problem List & Annotations (1) Hypothyroid SNOMED Code(s): 46167800 Code(s): E03.9 - HYPOTHYROIDISM, UNSPECIFIED Status: Acute Current Visit: Yes (2) CHF (congestive heart failure) SNOMED Code(s): 24539311 Code(s): I50.9 - HEART FAILURE, UNSPECIFIED Status: Acute Current Visit: Yes (3) PUD (peptic ulcer disease) SNOMED Code(s): 60441449 Code(s): K27.9 - PEPTIC UL, SITE UNSP, UNSP AC OR CHR, W/O HEMOR OR PERF Status: Acute Current Visit: Yes (4) Atrial fibrillation with rapid ventricular response SNOMED Code(s): 283672179128325 Code(s): I48.91 - UNSPECIFIED ATRIAL FIBRILLATION Status: Acute Current Visit: Yes (5) COVID-19 SNOMED Code(s): 890976750 Code(s): U07.1 - COVID-19 Status: Acute Current Visit: Yes (6) Diabetes SNOMED Code(s): 55991512 Code(s): E11.9 - TYPE 2 DIABETES MELLITUS WITHOUT COMPLICATIONS Status: Acute Current Visit: Yes (7) Sleep apnea SNOMED Code(s): 73989829 Code(s): G47.30 - SLEEP APNEA, UNSPECIFIED Status: Acute Current Visit: Yes (8) Obesity hypoventilation syndrome SNOMED Code(s): 11688565, 937363891 Code(s): E66.2 - MORBID (SEVERE) OBESITY WITH ALVEOLAR HYPOVENTILATION Status: Acute Current Visit: Yes (9) COPD (chronic obstructive pulmonary disease) SNOMED Code(s): 07901159 Code(s): J44.9 - CHRONIC OBSTRUCTIVE PULMONARY DISEASE, UNSPECIFIED Status: Acute Current Visit: Yes - Problem List Review Problem List Initiated/Reviewed/Updated: Yes - My Orders Last 24 Hours: My Active Orders 03/18/21 Dinner [employer] Diet [DIET] 03/18/21 20:16 Dextrose 50% in Water 50 ml IVPUSH ASDIRECTED PRN Glucagon,Human Recombinant [GlucaGen] 1 mg IM ASDIRECTED PRN 03/18/21 20:18 Insulin Aspart [NovoLOG] See Protocol SUBCUT TIDAC 03/19/21 09:30 Dextromethorphan/guaiFENesin [Robitussin DM] 10 ml PO Q4H PRN 03/19/21 10:30 Diltiazem [Cardizem CD] 120 mg PO DAILY Furosemide [Lasix] 40 mg PO DAILY Metoprolol Tartrate [Lopressor] 25 mg PO Q12HR 03/19/21 21:00 Gabapentin [Neurontin] 600 mg PO BID 03/20/21 07:30 Levothyroxine 175 mcg PO ACBREAKFAST - Plan Plan:: Patient currently remains in the ICU. RVR resolved, on 2L N/C Atrial fibrillation- RVR resolved. Patient transition to diltiazem 120 mg CD, metoprolol 25 mg twice daily home medications. Will monitor for signs of RVR. Telemetry. Hold acetazolamide, reduce Lasix to 40 mg daily. Reassess patient's fluid status and increase/resume Lasix and/or acetazolamide as tolerated. COVID-19 pneumonia Remdesivir 100 mg IV for 4 doses, dexamethasone 6 mg daily, Combivent Q4HR, Robitussin DM. Wean oxygen as tolerated. Currently 2L N/C Zofran 4mg, 40 protonix, SCD Diabetes SSI LOW, diabetic diet Hypothyroidismresume levothyroxine 175 mcg daily
[2021-03-19] MEDS: Pantoprazole 40 MG in Sodium Chloride 0.9% 10 ML IV SCH (18:30)
[2021-03-19] MEDS: Acetaminophen 325 MG Tab PO PRN (19:28)
[2021-03-19] MEDS: Gabapentin 300 MG Cap PO SCH (20:00)
[2021-03-20 06:28] LABS: BLOOD UREA NITROGEN,BUN 15 mg/dL (7.0-18.0); CARBON DIOXIDE,CO2 34.5 mmol/L (21.0-32.0); CHLORIDE,CL 95 mmol/L (98-107); GLUCOSE RANDOM 150 mg/dL (74-106); POTASSIUM,K 4.5 mmol/L (3.5-5.1); SODIUM,NA 135 mmol/L (136-145)
[2021-03-20] MEDS: Insulin Aspart 100 Units/ML 3 ML Pen SUBCUT SCH ×3 (06:48→17:33)
[2021-03-20] MEDS ORDERED: Non-Formulary Medication 1 Each (Levothyroxine 175 MCG Tablet) PO SCH (07:30)
[2021-03-20] MEDS: guaiFENesin/Dextromethorphan 100-10 MG/5 ML Soln 10 ML Cup PO PRN ×2 (07:33→17:33)
[2021-03-20] MEDS ORDERED: Phosphorus #1 250 MG Tab PO ONE (07:40)
[2021-03-20] MEDS: Furosemide 40 MG Tab PO SCH (08:07)
[2021-03-20] MEDS: Metoprolol Tartrate 25 MG Tab PO SCH ×2 (08:08→20:18)
[2021-03-20] MEDS: Gabapentin 300 MG Cap PO SCH ×2 (08:08→20:19)
[2021-03-20] MEDS: Diltiazem 120 MG Cap.CD PO SCH (08:08)
[2021-03-20] MEDS: Dexamethasone 4 MG Tab PO SCH (09:43)
[2021-03-20] MEDS: REMDESIVIR 100 MG in Sodium Chloride 0.9% 100 ML IV SCH (09:44)
--- NOTE | 2021-03-20 13:23 | PCM.PN ---
- General Info Date of Service: 03/20/21 Subjective Update: The patient is a 70-year-old female on day 3 of service, who has a significant past medical history of CHF, COPD, prior pulmonary embolism, hypertension, GERD, PUD, diabetes mellitus, anxiety, depression, [place], and obesity hypoventilation syndrome. She was admitted due to atrial fibrillation with rapid ventricular rate as well as for COVID-19 pneumonia. Today upon interview the patient has no complaints. She is eating, has a good appetite, and has been having bowel movements. She denies dizziness, nausea, but did have the occasional aches last night. When the patient was originally seen two days ago it was difficult to obtain a history from her because she was extremely fatigued. Today she has no fatigue and is a good historian. She also admits the chest pain she had for the last week has subsided. She is currently saturating 97% on 2 L of oxygen and is well enough to be transferred to the medical floor. - Review of Systems General: Denies: Fever, Weakness, Fatigue, Chills Pulmonary: Denies: Shortness of Breath, Pleuritic Chest Pain, Cough Cardiovascular: Denies: Chest Pain, Palpitations Gastrointestinal: Denies: Abdominal Pain, Constipation, Diarrhea Genitourinary: Denies: Dysuria - Patient Data Vitals - Most Recent: Last Vital Signs Temp 97.2 F 03/20/21 09:00 Pulse 64 03/20/21 12:00 Resp 14 03/20/21 12:00 BP 98/47 L 03/20/21 12:00 Pulse Ox 94 L 03/20/21 12:00 Weight - Most Recent: 243 lb 9.773 oz I&O - Last 24 Hours: Intake & Output 03/19/21 03/20/21 03/20/21 22:59 06:59 14:59 Intake Total 1100 500 Output Total 1050 500 Balance 50 0 Lab Results Last 24 Hours: Laboratory Results - last 24 hr 03/19/21 03/20/21 03/20/21 Range/Units 17:03 05:32 05:37 WBC 4.30 (4.0-11.0) K/uL RBC 5.28 (4.30-5.90) M/uL Hgb 13.8 (12.0-16.0) g/dL Hct 44.6 (36.0-46.0) % MCV 84.5 (80.0-98.0) fL MCH 26.1 L (27.0-32.0) pg MCHC 30.9 L (31.0-37.0) g/dL RDW Std Deviation 46.1 (28.0-62.0) fl RDW Coeff of Isaias 15 (11.0-15.0) % Plt Count 167 (150-400) K/uL MPV 11.60 (7.40-12.00) fL Neut % (Auto) 60.2 (48.0-80.0) % Lymph % (Auto) 29.3 (16.0-40.0) % [place] % (Auto) 10.5 (0.0-15.0) % Eos % (Auto) 0.0 (0.0-7.0) % Baso % (Auto) 0.0 (0.0-1.5) % Neut # (Auto) 2.6 (1.4-5.7) K/uL Lymph # (Auto) 1.3 (0.6-2.4) K/uL [place] # (Auto) 0.5 (0.0-0.8) K/uL Eos # (Auto) 0.0 (0.0-0.7) K/uL Baso # (Auto) 0.0 (0.0-0.1) K/uL Nucleated RBC % 0.0 /100WBC Nucleated RBCs # 0 K/uL Sodium (136-145) mmol/L Potassium (3.5-5.1) mmol/L Chloride (98-107) mmol/L Carbon Dioxide (21.0-32.0) mmol/L BUN (7.0-18.0) mg/dL Creatinine (0.6-1.0) mg/dL Est Cr Clr Drug Dosing mL/min Estimated GFR (MDRD) ml/min Glucose (74-106) mg/dL POC Glucose 166 H 134 H (70-99) mg/dL Calcium (8.5-10.1) mg/dL Phosphorus (2.6-4.7) mg/dL Magnesium (1.8-2.4) mg/dL Total Bilirubin (0.2-1.0) mg/dL AST (15-37) IU/L ALT (14-63) IU/L Alkaline Phosphatase (46-116) U/L Total Protein (6.4-8.2) g/dL Albumin (3.4-5.0) g/dL Globulin (2.6-4.0) g/dL Albumin/Globulin Ratio (0.9-1.6) 03/20/21 03/20/21 Range/Units 05:37 11:00 WBC (4.0-11.0) K/uL RBC (4.30-5.90) M/uL Hgb (12.0-16.0) g/dL Hct (36.0-46.0) % MCV (80.0-98.0) fL MCH (27.0-32.0) pg MCHC (31.0-37.0) g/dL RDW Std Deviation (28.0-62.0) fl RDW Coeff of Isaias (11.0-15.0) % Plt Count (150-400) K/uL MPV (7.40-12.00) fL Neut % (Auto) (48.0-80.0) % Lymph % (Auto) (16.0-40.0) % [place] % (Auto) (0.0-15.0) % Eos % (Auto) (0.0-7.0) % Baso % (Auto) (0.0-1.5) % Neut # (Auto) (1.4-5.7) K/uL Lymph # (Auto) (0.6-2.4) K/uL [place] # (Auto) (0.0-0.8) K/uL Eos # (Auto) (0.0-0.7) K/uL Baso # (Auto) (0.0-0.1) K/uL Nucleated RBC % /100WBC Nucleated RBCs # K/uL Sodium 135 L (136-145) mmol/L Potassium 4.5 (3.5-5.1) mmol/L Chloride 95 L (98-107) mmol/L Carbon Dioxide 34.5 H (21.0-32.0) mmol/L BUN 15 (7.0-18.0) mg/dL Creatinine 0.9 (0.6-1.0) mg/dL Est Cr Clr Drug Dosing 47.43 mL/min Estimated GFR (MDRD) > 60.0 ml/min Glucose 150 H (74-106) mg/dL POC Glucose 141 H (70-99) mg/dL Calcium 8.7 (8.5-10.1) mg/dL Phosphorus 2.1 L (2.6-4.7) mg/dL Magnesium 2.0 (1.8-2.4) mg/dL Total Bilirubin 0.2 (0.2-1.0) mg/dL AST 50 H (15-37) IU/L ALT 22 (14-63) IU/L Alkaline Phosphatase 70 (46-116) U/L Total Protein 8.3 H (6.4-8.2) g/dL Albumin 3.3 L (3.4-5.0) g/dL Globulin 5.0 H (2.6-4.0) g/dL Albumin/Globulin Ratio 0.7 L (0.9-1.6) Med Orders - Current: Current Medications Acetaminophen (Acetaminophen 325 Mg Tab) 650 mg PO Q4H PRN PRN Reason: Pain (Mild 1-3)/fever Last Admin: 03/19/21 19:28 Dose: 650 mg Documented by: Albuterol/Ipratropium (Albuterol/Ipratropium 4 Gm Inhalation [place]) 1 gm INH Q4H PRN PRN Reason: Dyspnea Last Admin: 03/19/21 06:34 Dose: 2 puff Documented by: Dexamethasone (Dexamethasone 4 Mg Tab) 6 mg PO DAILY@1000 [facility] Last Admin: 03/20/21 09:43 Dose: 6 mg Documented by: Dextrose/Water (50% Dextrose In Water 50 Ml Syringe) 50 ml IVPUSH ASDIRECTED PRN PRN Reason: Hypoglycemia Diltiazem HCl (Diltiazem 120 Mg Cap.Cd) 120 mg PO DAILY [facility] Last Admin: 03/20/21 08:08 Dose: 120 mg Documented by: Furosemide (Furosemide 40 Mg Tab) 40 mg PO DAILY [facility] Last Admin: 03/20/21 08:07 Dose: 40 mg Documented by: Gabapentin (Gabapentin 300 Mg Cap) 600 mg PO BID [facility] Last Admin: 03/20/21 08:08 Dose: 600 mg Documented by: Glucagon (Glucagon,Human Recombinant 1 Mg Vial) 1 mg IM ASDIRECTED PRN PRN Reason: Hypoglycemia Guaifenesin/Dextromethorphan (Guaifenesin/Dextromethorphan 100-10 Mg/5 Ml Soln 10 Ml Cup) 10 ml PO Q4H PRN PRN Reason: Cough Last Admin: 03/20/21 07:33 Dose: 10 ml Documented by: Pantoprazole Sodium 40 mg/ (Sodium Chloride) 10 mls @ 300 mls/hr IV Q24H [facility] Last Admin: 03/19/21 18:30 Dose: 300 mls/hr Documented by: Remdesivir 100 mg/ Sodium (Chloride) 100 mls @ 100 mls/hr IV DAILY@1000 [facility] Stop: 03/22/21 10:59 Last Admin: 03/20/21 09:44 Dose: 100 mls/hr Documented by: Diltiazem HCl 100 mg/ Sodium (Chloride) 100 mls @ 3.2 mls/hr IV NOW [facility]; Protocol Insulin Aspart (Insulin Aspart 100 Units/Ml 3 Ml Pen) 0 unit SUBCUT TIDAC [facility]; Protocol Last Admin: 03/20/21 11:05 Dose: Not Given Documented by: Levothyroxine Sodium 100 mcg/ (Levothyroxine Sodium 75 mcg) 175 mcg PO ACBREAKFAST [facility] Last Admin: 03/20/21 07:33 Dose: 175 mcg Documented by: Metoprolol Tartrate (Metoprolol Tartrate 25 Mg Tab) 25 mg PO Q12HR [facility] Last Admin: 03/20/21 08:08 Dose: 25 mg Documented by: Ondansetron HCl (Ondansetron 4 Mg/2 Ml Sdv) 4 mg IVPUSH Q4H PRN PRN Reason: Nausea/Vomiting Discontinued Medications Dexamethasone (Dexamethasone 4 Mg Tab) 6 mg PO Q24H [facility] Last Admin: 03/18/21 21:08 Dose: Not Given Documented by: Furosemide (Furosemide 40 Mg/4 Ml Vial) Confirm Administered Dose 40 mg .ROUTE .STK-MED ONE Stop: 03/19/21 10:35 Last Admin: 03/19/21 10:49 Dose: Not Given Documented by: Guaifenesin (Guaifenesin 100 Mg/5 Ml Soln 10 Ml Ud Cup) 200 mg PO Q6H PRN PRN Reason: Cough Hydromorphone HCl (Hydromorphone 1 Mg/Ml Syringe) 1 mg IVPUSH ONETIME ONE Stop: 03/18/21 15:05 Last Admin: 03/18/21 15:21 Dose: 1 mg Documented by: Diltiazem HCl 125 mg/ Sodium (Chloride) 125 mls @ 4 mls/hr IV ASDIRECTED [facility] Diltiazem HCl 100 mg/ Sodium (Chloride) 100 mls @ 3.2 mls/hr IV ASDIRECTED [facility] Last Infusion: 03/19/21 04:03 Dose: 1 mls/hr Documented by: Remdesivir 200 mg/ Sodium (Chloride) 250 mls @ 250 mls/hr IV ONETIME ONE Stop: 03/18/21 20:01 Last Admin: 03/18/21 20:37 Dose: Not Given Documented by: Diltiazem HCl 100 mg/ Sodium (Chloride) 100 mls @ 5 mls/hr IV NOW [facility]; Protocol Magnesium Sulfate 2 gm/ Premix 50 mls @ 12.5 mls/hr IV ONETIME ONE Stop: 03/19/21 07:51 Last Infusion: 03/19/21 06:01 Dose: 12.5 mls/hr Documented by: Insulin Aspart (Insulin Aspart 100 Units/Ml 3 Ml Pen) 0 unit SUBCUT TIDAC [facility]; Protocol Iopamidol (Iopamidol 755 Mg/Ml 500 Ml Multipack Bottle) 80 ml IVPUSH ONETIME ONE Stop: 03/18/21 18:19 Last Admin: 03/18/21 18:19 Dose: 80 ml Documented by: Ondansetron HCl (Ondansetron 4 Mg/2 Ml Sdv) 4 mg IVPUSH ONETIME ONE Stop: 03/18/21 15:04 Last Admin: 03/18/21 15:21 Dose: 4 mg Documented by: Sodium Phosphate (Phosphorus #1 250 Mg Tab) 250 mg PO ONETIME ONE Stop: 03/20/21 07:41 Last Admin: 03/20/21 08:07 Dose: 250 mg Documented by: - Exam General: Alert, Oriented, Cooperative HEENT: Mucous Membr. Moist/[place] Lungs: Clear to Auscultation, Normal Respiratory Effort Cardiovascular: Regular Rate, Regular Rhythm, No Murmurs GI/Abdominal Exam: Normal Bowel Sounds, Soft, Non-Tender, No Organomegaly - Patient Data Lab Results Last 24 hrs: Laboratory Results - last 24 hr 03/19/21 03/20/21 03/20/21 Range/Units 17:03 05:32 05:37 WBC 4.30 (4.0-11.0) K/uL RBC 5.28 (4.30-5.90) M/uL Hgb 13.8 (12.0-16.0) g/dL Hct 44.6 (36.0-46.0) % MCV 84.5 (80.0-98.0) fL MCH 26.1 L (27.0-32.0) pg MCHC 30.9 L (31.0-37.0) g/dL RDW Std Deviation 46.1 (28.0-62.0) fl RDW Coeff of Isaias 15 (11.0-15.0) % Plt Count 167 (150-400) K/uL MPV 11.60 (7.40-12.00) fL Neut % (Auto) 60.2 (48.0-80.0) % Lymph % (Auto) 29.3 (16.0-40.0) % [place] % (Auto) 10.5 (0.0-15.0) % Eos % (Auto) 0.0 (0.0-7.0) % Baso % (Auto) 0.0 (0.0-1.5) % Neut # (Auto) 2.6 (1.4-5.7) K/uL Lymph # (Auto) 1.3 (0.6-2.4) K/uL [place] # (Auto) 0.5 (0.0-0.8) K/uL Eos # (Auto) 0.0 (0.0-0.7) K/uL Baso # (Auto) 0.0 (0.0-0.1) K/uL Nucleated RBC % 0.0 /100WBC Nucleated RBCs # 0 K/uL Sodium (136-145) mmol/L Potassium (3.5-5.1) mmol/L Chloride (98-107) mmol/L Carbon Dioxide (21.0-32.0) mmol/L BUN (7.0-18.0) mg/dL Creatinine (0.6-1.0) mg/dL Est Cr Clr Drug Dosing mL/min Estimated GFR (MDRD) ml/min Glucose (74-106) mg/dL POC Glucose 166 H 134 H (70-99) mg/dL Calcium (8.5-10.1) mg/dL Phosphorus (2.6-4.7) mg/dL Magnesium (1.8-2.4) mg/dL Total Bilirubin (0.2-1.0) mg/dL AST (15-37) IU/L ALT (14-63) IU/L Alkaline Phosphatase (46-116) U/L Total Protein (6.4-8.2) g/dL Albumin (3.4-5.0) g/dL Globulin (2.6-4.0) g/dL Albumin/Globulin Ratio (0.9-1.6) 03/20/21 03/20/21 Range/Units 05:37 11:00 WBC (4.0-11.0) K/uL RBC (4.30-5.90) M/uL Hgb (12.0-16.0) g/dL Hct (36.0-46.0) % MCV (80.0-98.0) fL MCH (27.0-32.0) pg MCHC (31.0-37.0) g/dL RDW Std Deviation (28.0-62.0) fl RDW Coeff of Isaias (11.0-15.0) % Plt Count (150-400) K/uL MPV (7.40-12.00) fL Neut % (Auto) (48.0-80.0) % Lymph % (Auto) (16.0-40.0) % [place] % (Auto) (0.0-15.0) % Eos % (Auto) (0.0-7.0) % Baso % (Auto) (0.0-1.5) % Neut # (Auto) (1.4-5.7) K/uL Lymph # (Auto) (0.6-2.4) K/uL [place] # (Auto) (0.0-0.8) K/uL Eos # (Auto) (0.0-0.7) K/uL Baso # (Auto) (0.0-0.1) K/uL Nucleated RBC % /100WBC Nucleated RBCs # K/uL Sodium 135 L (136-145) mmol/L Potassium 4.5 (3.5-5.1) mmol/L Chloride 95 L (98-107) mmol/L Carbon Dioxide 34.5 H (21.0-32.0) mmol/L BUN 15 (7.0-18.0) mg/dL Creatinine 0.9 (0.6-1.0) mg/dL Est Cr Clr Drug Dosing 47.43 mL/min Estimated GFR (MDRD) > 60.0 ml/min Glucose 150 H (74-106) mg/dL POC Glucose 141 H (70-99) mg/dL Calcium 8.7 (8.5-10.1) mg/dL Phosphorus 2.1 L (2.6-4.7) mg/dL Magnesium 2.0 (1.8-2.4) mg/dL Total Bilirubin 0.2 (0.2-1.0) mg/dL AST 50 H (15-37) IU/L ALT 22 (14-63) IU/L Alkaline Phosphatase 70 (46-116) U/L Total Protein 8.3 H (6.4-8.2) g/dL Albumin 3.3 L (3.4-5.0) g/dL Globulin 5.0 H (2.6-4.0) g/dL Albumin/Globulin Ratio 0.7 L (0.9-1.6) Result Diagrams: 03/20/21 05:37 03/20/21 05:37 Sepsis Event Note - Evaluation Sepsis Screening Result: No Definite Risk - Focused Exam Vital Signs: Vital Signs Temp Pulse Pulse Resp BP BP Pulse Ox 03/20/21 12:00 64 14 98/47 L 94 L 03/20/21 09:00 97.2 F 73 16 126/69 93 L 03/20/21 08:08 78 146/64 H 03/20/21 08:00 96.5 F L 78 21 H 146/64 H 95 03/20/21 07:00 17 124/85 94 L 03/20/21 06:00 18 132/63 95 03/20/21 05:00 18 129/65 91 L 03/20/21 04:00 96.8 F L 14 86/36 L 97 03/20/21 03:00 14 96/39 L 97 03/20/21 02:00 13 100/35 L 96 - Problem List & Annotations (1) Atrial fibrillation with rapid ventricular response SNOMED Code(s): 577585702458586 Code(s): I48.91 - UNSPECIFIED ATRIAL FIBRILLATION Status: Acute Current Visit: Yes (2) Diabetes SNOMED Code(s): 85797819 Code(s): E11.9 - TYPE 2 DIABETES MELLITUS WITHOUT COMPLICATIONS Status: Acute Current Visit: Yes (3) COVID-19 SNOMED Code(s): 714242299 Code(s): U07.1 - COVID-19 Status: Acute Current Visit: Yes (4) Hypothyroidism SNOMED Code(s): 49623781 Code(s): E03.9 - HYPOTHYROIDISM, UNSPECIFIED Status: Acute Current Visit: Yes - Problem List Review Problem List Initiated/Reviewed/Updated: Yes - My Orders Last 24 Hours: My Active Orders 03/20/21 07:39 Transfer Patient (Change bed) [ADT] Routine - Plan Plan:: 1. Atrial fibrillation with rapid ventricular rate -Currently is resolved, patient is no longer on Cardizem drip and has been transitioned to oral medications -Is on Cardizem 120 mg p.o. once a day and metoprolol 25 mg p.o. twice a day which are her home dosages -Patient will be transferred to the medical floor, no longer needs ICU management -Is on telemetry to monitor electrical status of her heart -Lasix dose has been reduced to 40 mg once a day -Acetazolamide medication has been held 2. COVID-19 pneumonia -We will continue the patient on dexamethasone 6 mg per oral route once a day, has received 2 dosages -We will continue the patient on remdesivir 100 mg via IV, 1 of 4 bags has been completed -For cough, the patient has Robitussin-DM 10 mL every 4 hours as needed -For shortness of breath patient has Combivent 1 puff every 4 hours as needed -We will continue to monitor oxygen demand and supply as needed 3. Hypophosphatemia -Patient had a phosphate level of 2.1 this morning with a normal level being ov er 2.6 -Patient was given 250 mg of potassium phosphate per oral route once -We will continue to monitor her phosphate levels 4. Hypothyroidism -We will continue the patient on her medication levothyroxine 175 mcg per oral route once a day 5. Diabetes mellitus -Patient has an insulin sliding scale in place, as well as a diabetic diet, will treat accordingly
[2021-03-20] MEDS: Acetaminophen 325 MG Tab PO PRN (17:33)
[2021-03-20] MEDS: Pantoprazole 40 MG in Sodium Chloride 0.9% 10 ML IV SCH (18:34)
[2021-03-20] MEDS: Nystatin Topical Powder 15 GM Bottle TOP PRN (23:11)
[2021-03-21 06:37] LABS: BLOOD UREA NITROGEN,BUN 15 mg/dL (7.0-18.0); CARBON DIOXIDE,CO2 35.8 mmol/L (21.0-32.0); CHLORIDE,CL 97 mmol/L (98-107); GLUCOSE RANDOM 161 mg/dL (74-106); POTASSIUM,K 4.3 mmol/L (3.5-5.1); SODIUM,NA 139 mmol/L (136-145)
[2021-03-21] MEDS: Insulin Aspart 100 Units/ML 3 ML Pen SUBCUT SCH ×2 (07:55→11:33)
[2021-03-21] MEDS: Metoprolol Tartrate 25 MG Tab PO SCH (08:40)
[2021-03-21] MEDS: Phosphorus #1 250 MG Tab PO SCH ×2 (08:40→11:27)
[2021-03-21] MEDS: Gabapentin 300 MG Cap PO SCH (08:40)
[2021-03-21] MEDS: Furosemide 40 MG Tab PO SCH (08:40)
[2021-03-21] MEDS: Diltiazem 120 MG Cap.CD PO SCH (08:40)
[2021-03-21] MEDS: REMDESIVIR 100 MG in Sodium Chloride 0.9% 100 ML IV SCH (09:40)
[2021-03-21] MEDS: Dexamethasone 4 MG Tab PO SCH (09:40)
[2021-03-21] MEDS: Nystatin Topical Powder 15 GM Bottle TOP PRN (11:27)
--- NOTE | 2021-03-21 11:57 | PCM.DCSUM1 ---
<Dewey Maloney - Last Filed: 03/21/21 11:48> Discharge Summary - Hospital Course Free Text/Narrative:: The patient is a 70-year-old female on day 4 of admission who has a significant past medical history of CHF, COPD, prior PE, hypertension, GERD, PUD, diabetes mellitus, anxiety, depression, [place], and obesity hypoventilation syndrome. She was admitted due to atrial fibrillation with rapid ventricular rate as well as for COVID-19 pneumonia. She was transferred here from [place] on a Cardizem drip due to having an increased heart rate above 120 with her afib and RVR. While in the hospital here at [facility] her heart rate decreased to 90-100 and she went into sinus rhythm. Subsequently the Cardizem drip was discontinued and she was transitioned to her oral home dosages of Cardizem 120 mg per oral once a day and metoprolol 25 mg per oral twice a day. She has been on telemetry continuously in order to assess her heart's electrical status. She was also placed on a reduced dose of Lasix 40 mg per oral scheduled. With respect to anticoagulation, the patient has history of bleeding, more specifically PUD, and was put on 162 mg of aspirin daily by her PCP and not any warfarin/Coumadin products. It was discussed with her that with A. fib there is potential to clot, and to mention this to her PCP at her follow-up appointment in 1 to 2 weeks time. In regards to her COVID-19, she received remdesivir per IV route, dexamethasone per oral route, and Combivent whenever she has shortness of breath. She was also given Robitussin whenever she had cough, and will be prescribed this upon discharge. With these treatments her COVID-19 symptoms subsided, and she is currently saturating 96% on 2 L. The patient has home oxygen of 2 to 3 L and will continue to use this when she goes home today. With respect to her other past medical history, the patient has been advised to continue with her home medications. She is now ready for discharge. - Discharge Data Discharge Date: 03/21/21 Discharge Disposition: Home, Self-Care 01 Condition: Stable - Referral to Home Health Primary Care Physician: William Armstrong MD - Discharge Diagnosis/Problem(s) (1) Atrial fibrillation with rapid ventricular response SNOMED Code(s): 471677055897774 ICD Code: I48.91 - UNSPECIFIED ATRIAL FIBRILLATION Status: Acute (2) Diabetes SNOMED Code(s): 75670801 ICD Code: E11.9 - TYPE 2 DIABETES MELLITUS WITHOUT COMPLICATIONS Status: Acute (3) COVID-19 SNOMED Code(s): 535032844 ICD Code: U07.1 - COVID-19 Status: Acute (4) Hypothyroidism SNOMED Code(s): 37709626 ICD Code: E03.9 - HYPOTHYROIDISM, UNSPECIFIED Status: Acute - Patient Instructions Diet: Diabetic Diet Activity: As Tolerated Showering/Bathing: May Shower Other/Special Instructions: If short of breath and/or respiratory difficulty use home oxygen as needed. If this does not alleviate your respiratory symptoms come back to the hospital. If you experience chest pain, heart racing, or lightheadedness, return to the hospital. Use your home oxygen as directed from providers. Follow up with your PCP in 1 week. - Discharge Plan Prescriptions/Med Rec: hydrOXYzine HCL [Atarax] 25 mg PO Q8H PRN #15 tab PRN Reason: Dizziness Dextromethorphan/guaiFENesin [Robitussin DM] 10 ml PO Q4H PRN #120 ml PRN Reason: Cough Home Medications: Home Meds Aspirin 81 mg PO DAILY 03/18/21 [History] Diltiazem [Cardizem CD] 120 mg PO DAILY 03/18/21 [History] Fluticasone/Salmeterol [Advair 100-50] 1 puff INH BID 03/18/21 [History] Furosemide [Lasix] 40 mg PO BID 03/18/21 [History] Gabapentin [Neurontin] 600 mg PO BID 03/18/21 [History] Levothyroxine 175 mcg PO ACBREAKFAST 03/18/21 [History] Metoprolol Tartrate [Lopressor] 25 mg PO Q12HR 03/18/21 [History] Montelukast [Singulair] 10 mg PO DAILY 03/18/21 [History] Nystatin [Nystop] 30 gm TOP BID 03/18/21 [History] Omeprazole 20 mg PO BIDAC 03/18/21 [History] acetaZOLAMIDE [Diamox] 250 mg PO ASDIRECTED 03/18/21 [History] hydrOXYzine HCL [Atarax] 25 mg PO Q8H PRN #15 tab 03/18/21 [Rx] metFORMIN [Glucophage XR] 2,000 mg PO WITHDINNER 03/18/21 [History] traZODone HCl [Trazodone HCl] 150 mg PO BEDTIME 03/18/21 [History] Dextromethorphan/guaiFENesin [Robitussin DM] 10 ml PO Q4H PRN #120 ml 03/21/21 [Rx] Patient Handouts: COVID-19 Frequently Asked Questions, COVID-19, Dextromethorphan; Guaifenesin oral solution, COVID-19: How to Protect Yourself and Others - CDC, Hydroxyzine capsules or tablets Forms: ED Department Discharge Referrals: William Armstrong MD [Primary Care Provider] - 04/08/21 1:45 pm - Discharge Summary/Plan Comment DC Time >30 min.: Yes Total # of Minutes for Discharge Time: 35 minutes - Review of Systems General: Denies: Fever, Weakness, Fatigue Pulmonary: Denies: Shortness of Breath, Pleuritic Chest Pain, Cough, Sputum Cardiovascular: Denies: Chest Pain, Palpitations, Dyspnea on Exertion, Orthopnea Gastrointestinal: Denies: Abdominal Pain, Constipation, Diarrhea Genitourinary: Denies: Dysuria - Patient Data Vitals - Most Recent: Last Vital Signs Temp 97.8 F 03/21/21 11:25 Pulse 76 03/21/21 11:25 Resp 17 03/21/21 11:25 BP 126/55 L 03/21/21 11:25 Pulse Ox 94 L 03/21/21 11:25 Weight - Most Recent: 114.895 kg I&O - Last 24 hours: Intake & Output 03/20/21 03/21/21 03/21/21 22:59 06:59 14:59 Intake Total 600 250 Output Total 750 375 Balance -150 -125 Lab Results - Last 24 hrs: Laboratory Results - last 24 hr 03/20/21 03/21/21 03/21/21 Range/Units 17:27 05:35 05:35 WBC 4.71 (4.0-11.0) K/uL RBC 4.91 (4.30-5.90) M/uL Hgb 12.6 (12.0-16.0) g/dL Hct 41.3 (36.0-46.0) % MCV 84.1 (80.0-98.0) fL MCH 25.7 L (27.0-32.0) pg MCHC 30.5 L (31.0-37.0) g/dL RDW Std Deviation 46.4 (28.0-62.0) fl RDW Coeff of Isaias 15 (11.0-15.0) % Plt Count 191 (150-400) K/uL MPV 11.50 (7.40-12.00) fL Neut % (Auto) 62.7 (48.0-80.0) % Lymph % (Auto) 28.2 (16.0-40.0) % [place] % (Auto) 9.1 (0.0-15.0) % Eos % (Auto) 0.0 (0.0-7.0) % Baso % (Auto) 0.0 (0.0-1.5) % Neut # (Auto) 3.0 (1.4-5.7) K/uL Lymph # (Auto) 1.3 (0.6-2.4) K/uL [place] # (Auto) 0.4 (0.0-0.8) K/uL Eos # (Auto) 0.0 (0.0-0.7) K/uL Baso # (Auto) 0.0 (0.0-0.1) K/uL Nucleated RBC % 0.0 /100WBC Nucleated RBCs # 0 K/uL Sodium 139 (136-145) mmol/L Potassium 4.3 (3.5-5.1) mmol/L Chloride 97 L (98-107) mmol/L Carbon Dioxide 35.8 H (21.0-32.0) mmol/L BUN 15 (7.0-18.0) mg/dL Creatinine 0.9 (0.6-1.0) mg/dL Est Cr Clr Drug Dosing 47.43 mL/min Estimated GFR (MDRD) > 60.0 ml/min Glucose 161 H (74-106) mg/dL POC Glucose 197 H (70-99) mg/dL Calcium 8.2 L (8.5-10.1) mg/dL Phosphorus 1.7 L (2.6-4.7) mg/dL Total Bilirubin 0.5 (0.2-1.0) mg/dL AST 60 H (15-37) IU/L ALT 33 (14-63) IU/L Alkaline Phosphatase 62 (46-116) U/L Total Protein 7.6 (6.4-8.2) g/dL Albumin 3.0 L (3.4-5.0) g/dL Globulin 4.6 H (2.6-4.0) g/dL Albumin/Globulin Ratio 0.7 L (0.9-1.6) 03/21/21 Range/Units 06:30 WBC (4.0-11.0) K/uL RBC (4.30-5.90) M/uL Hgb (12.0-16.0) g/dL Hct (36.0-46.0) % MCV (80.0-98.0) fL MCH (27.0-32.0) pg MCHC (31.0-37.0) g/dL RDW Std Deviation (28.0-62.0) fl RDW Coeff of Isaias (11.0-15.0) % Plt Count (150-400) K/uL MPV (7.40-12.00) fL Neut % (Auto) (48.0-80.0) % Lymph % (Auto) (16.0-40.0) % [place] % (Auto) (0.0-15.0) % Eos % (Auto) (0.0-7.0) % Baso % (Auto) (0.0-1.5) % Neut # (Auto) (1.4-5.7) K/uL Lymph # (Auto) (0.6-2.4) K/uL [place] # (Auto) (0.0-0.8) K/uL Eos # (Auto) (0.0-0.7) K/uL Baso # (Auto) (0.0-0.1) K/uL Nucleated RBC % /100WBC Nucleated RBCs # K/uL Sodium (136-145) mmol/L Potassium (3.5-5.1) mmol/L Chloride (98-107) mmol/L Carbon Dioxide (21.0-32.0) mmol/L BUN (7.0-18.0) mg/dL Creatinine (0.6-1.0) mg/dL Est Cr Clr Drug Dosing mL/min Estimated GFR (MDRD) ml/min Glucose (74-106) mg/dL POC Glucose 161 H (70-99) mg/dL Calcium (8.5-10.1) mg/dL Phosphorus (2.6-4.7) mg/dL Total Bilirubin (0.2-1.0) mg/dL AST (15-37) IU/L ALT (14-63) IU/L Alkaline Phosphatase (46-116) U/L Total Protein (6.4-8.2) g/dL Albumin (3.4-5.0) g/dL Globulin (2.6-4.0) g/dL Albumin/Globulin Ratio (0.9-1.6) Med Orders - Current: Current Medications Acetaminophen (Acetaminophen 325 Mg Tab) 650 mg PO Q4H PRN PRN Reason: Pain (Mild 1-3)/fever Last Admin: 03/20/21 17:33 Dose: 650 mg Documented by: Albuterol/Ipratropium (Albuterol/Ipratropium 4 Gm Inhalation [place]) 1 gm INH Q4H PRN PRN Reason: Dyspnea Last Admin: 03/19/21 06:34 Dose: 2 puff Documented by: Dexamethasone (Dexamethasone 4 Mg Tab) 6 mg PO DAILY@1000 [facility] Last Admin: 03/21/21 09:40 Dose: 6 mg Documented by: Dextrose/Water (50% Dextrose In Water 50 Ml Syringe) 50 ml IVPUSH ASDIRECTED PRN PRN Reason: Hypoglycemia Diltiazem HCl (Diltiazem 120 Mg Cap.Cd) 120 mg PO DAILY [facility] Last Admin: 03/21/21 08:40 Dose: 120 mg Documented by: Furosemide (Furosemide 40 Mg Tab) 40 mg PO DAILY [facility] Last Admin: 03/21/21 08:40 Dose: 40 mg Documented by: Gabapentin (Gabapentin 300 Mg Cap) 600 mg PO BID [facility] Last Admin: 03/21/21 08:40 Dose: 600 mg Documented by: Glucagon (Glucagon,Human Recombinant 1 Mg Vial) 1 mg IM ASDIRECTED PRN PRN Reason: Hypoglycemia Guaifenesin/Dextromethorphan (Guaifenesin/Dextromethorphan 100-10 Mg/5 Ml Soln 10 Ml Cup) 10 ml PO Q4H PRN PRN Reason: Cough Last Admin: 03/20/21 17:33 Dose: 10 ml Documented by: Pantoprazole Sodium 40 mg/ (Sodium Chloride) 10 mls @ 300 mls/hr IV Q24H [facility] Last Admin: 03/20/21 18:34 Dose: 300 mls/hr Documented by: Remdesivir 100 mg/ Sodium (Chloride) 100 mls @ 100 mls/hr IV DAILY@1000 [facility] Stop: 03/22/21 10:59 Last Admin: 03/21/21 09:40 Dose: 100 mls/hr Documented by: Insulin Aspart (Insulin Aspart 100 Units/Ml 3 Ml Pen) 0 unit SUBCUT TIDAC [facility]; Protocol Last Admin: 03/21/21 11:33 Dose: 1 unit Documented by: Levothyroxine Sodium 100 mcg/ (Levothyroxine Sodium 75 mcg) 175 mcg PO ACBREAKFAST [facility] Last Admin: 03/21/21 06:33 Dose: 175 mcg Documented by: Metoprolol Tartrate (Metoprolol Tartrate 25 Mg Tab) 25 mg PO Q12HR [facility] Last Admin: 03/21/21 08:40 Dose: 25 mg Documented by: Nystatin (Nystatin Topical Powder 15 Gm Bottle) 0 gm TOP BID PRN PRN Reason: Rash Last Admin: 03/21/21 11:27 Dose: 1 applic Documented by: Ondansetron HCl (Ondansetron 4 Mg/2 Ml Sdv) 4 mg IVPUSH Q4H PRN PRN Reason: Nausea/Vomiting Sodium Phosphate (Phosphorus #1 250 Mg Tab) 250 mg PO QID [facility] Last Admin: 03/21/21 11:27 Dose: 250 mg Documented by: Discontinued Medications Dexamethasone (Dexamethasone 4 Mg Tab) 6 mg PO Q24H [facility] Last Admin: 03/18/21 21:08 Dose: Not Given Documented by: Furosemide (Furosemide 40 Mg/4 Ml Vial) Confirm Administered Dose 40 mg .ROUTE .STK-MED ONE Stop: 03/19/21 10:35 Last Admin: 03/19/21 10:49 Dose: Not Given Documented by: Guaifenesin (Guaifenesin 100 Mg/5 Ml Soln 10 Ml Ud Cup) 200 mg PO Q6H PRN PRN Reason: Cough Hydromorphone HCl (Hydromorphone 1 Mg/Ml Syringe) 1 mg IVPUSH ONETIME ONE Stop: 03/18/21 15:05 Last Admin: 03/18/21 15:21 Dose: 1 mg Documented by: Diltiazem HCl 125 mg/ Sodium (Chloride) 125 mls @ 4 mls/hr IV ASDIRECTED [facility] Diltiazem HCl 100 mg/ Sodium (Chloride) 100 mls @ 3.2 mls/hr IV ASDIRECTED [facility] Last Infusion: 03/19/21 04:03 Dose: 1 mls/hr Documented by: Remdesivir 200 mg/ Sodium (Chloride) 250 mls @ 250 mls/hr IV ONETIME ONE Stop: 03/18/21 20:01 Last Admin: 03/18/21 20:37 Dose: Not Given Documented by: Diltiazem HCl 100 mg/ Sodium (Chloride) 100 mls @ 5 mls/hr IV NOW [facility]; Protocol Diltiazem HCl 100 mg/ Sodium (Chloride) 100 mls @ 3.2 mls/hr IV NOW [facility]; Protocol Magnesium Sulfate 2 gm/ Premix 50 mls @ 12.5 mls/hr IV ONETIME ONE Stop: 03/19/21 07:51 Last Infusion: 03/19/21 06:01 Dose: 12.5 mls/hr Documented by: Insulin Aspart (Insulin Aspart 100 Units/Ml 3 Ml Pen) 0 unit SUBCUT TIDAC [facility]; Protocol Iopamidol (Iopamidol 755 Mg/Ml 500 Ml Multipack Bottle) 80 ml IVPUSH ONETIME ONE Stop: 03/18/21 18:19 Last Admin: 03/18/21 18:19 Dose: 80 ml Documented by: Ondansetron HCl (Ondansetron 4 Mg/2 Ml Sdv) 4 mg IVPUSH ONETIME ONE Stop: 03/18/21 15:04 Last Admin: 03/18/21 15:21 Dose: 4 mg Documented by: Sodium Phosphate (Phosphorus #1 250 Mg Tab) 250 mg PO ONETIME ONE Stop: 03/20/21 07:41 Last Admin: 03/20/21 08:07 Dose: 250 mg Documented by: - Exam General: Reports: Alert, Oriented, Cooperative HEENT: Reports: Mucous Membr. Moist/[place] Neck: Reports: No JVD Lungs: Reports: Clear to Auscultation, Normal Respiratory Effort Cardiovascular: Reports: Regular Rate, Regular Rhythm, No Murmurs GI/Abdominal Exam: Normal Bowel Sounds, Soft, Non-Tender <Balderas,Soham Fantasma - Last Filed: 03/23/21 21:58> Discharge Summary - Referral to Home Health Primary Care Physician: William Armstrong MD - Patient Data Vitals - Most Recent: Last Vital Signs Temp 36.6 C 03/21/21 11:25 Pulse 76 03/21/21 11:25 Resp 17 03/21/21 11:25 BP 126/55 L 03/21/21 11:25 Pulse Ox 94 L 03/21/21 11:25 Med Orders - Current: Current Medications Discontinued Medications Acetaminophen (Acetaminophen 325 Mg Tab) 650 mg PO Q4H PRN PRN Reason: Pain (Mild 1-3)/fever Last Admin: 03/20/21 17:33 Dose: 650 mg Documented by: Albuterol/Ipratropium (Albuterol/Ipratropium 4 Gm Inhalation [place]) 1 gm INH Q4H PRN PRN Reason: Dyspnea Last Admin: 03/19/21 06:34 Dose: 2 puff Documented by: Dexamethasone (Dexamethasone 4 Mg Tab) 6 mg PO Q24H [facility] Last Admin: 03/18/21 21:08 Dose: Not Given Documented by: Dexamethasone (Dexamethasone 4 Mg Tab) 6 mg PO DAILY@1000 [facility] Last Admin: 03/21/21 09:40 Dose: 6 mg Documented by: Dextrose/Water (50% Dextrose In Water 50 Ml Syringe) 50 ml IVPUSH ASDIRECTED PRN PRN Reason: Hypoglycemia Diltiazem HCl (Diltiazem 120 Mg Cap.Cd) 120 mg PO DAILY [facility] Last Admin: 03/21/21 08:40 Dose: 120 mg Documented by: Furosemide (Furosemide 40 Mg Tab) 40 mg PO DAILY [facility] Last Admin: 03/21/21 08:40 Dose: 40 mg Documented by: Furosemide (Furosemide 40 Mg/4 Ml Vial) Confirm Administered Dose 40 mg .ROUTE .STK-MED ONE Stop: 03/19/21 10:35 Last Admin: 03/19/21 10:49 Dose: Not Given Documented by: Gabapentin (Gabapentin 300 Mg Cap) 600 mg PO BID [facility] Last Admin: 03/21/21 08:40 Dose: 600 mg Documented by: Glucagon (Glucagon,Human Recombinant 1 Mg Vial) 1 mg IM ASDIRECTED PRN PRN Reason: Hypoglycemia Guaifenesin (Guaifenesin 100 Mg/5 Ml Soln 10 Ml Ud Cup) 200 mg PO Q6H PRN PRN Reason: Cough Guaifenesin/Dextromethorphan (Guaifenesin/Dextromethorphan 100-10 Mg/5 Ml Soln 10 Ml Cup) 10 ml PO Q4H PRN PRN Reason: Cough Last Admin: 03/20/21 17:33 Dose: 10 ml Documented by: Hydromorphone HCl (Hydromorphone 1 Mg/Ml Syringe) 1 mg IVPUSH ONETIME ONE Stop: 03/18/21 15:05 Last Admin: 03/18/21 15:21 Dose: 1 mg Documented by: Diltiazem HCl 125 mg/ Sodium (Chloride) 125 mls @ 4 mls/hr IV ASDIRECTED [facility] Diltiazem HCl 100 mg/ Sodium (Chloride) 100 mls @ 3.2 mls/hr IV ASDIRECTED [facility] Last Infusion: 03/19/21 04:03 Dose: 1 mls/hr Documented by: Pantoprazole Sodium 40 mg/ (Sodium Chloride) 10 mls @ 300 mls/hr IV Q24H [facility] Last Admin: 03/20/21 18:34 Dose: 300 mls/hr Documented by: Remdesivir 200 mg/ Sodium (Chloride) 250 mls @ 250 mls/hr IV ONETIME ONE Stop: 03/18/21 20:01 Last Admin: 03/18/21 20:37 Dose: Not Given Documented by: Remdesivir 100 mg/ Sodium (Chloride) 100 mls @ 100 mls/hr IV DAILY@1000 [facility] Stop: 03/22/21 10:59 Last Admin: 03/21/21 09:40 Dose: 100 mls/hr Documented by: Diltiazem HCl 100 mg/ Sodium (Chloride) 100 mls @ 5 mls/hr IV NOW [facility]; Protocol Diltiazem HCl 100 mg/ Sodium (Chloride) 100 mls @ 3.2 mls/hr IV NOW [facility]; Pro tocol Magnesium Sulfate 2 gm/ Premix 50 mls @ 12.5 mls/hr IV ONETIME ONE Stop: 03/19/21 07:51 Last Infusion: 03/19/21 06:01 Dose: 12.5 mls/hr Documented by: Insulin Aspart (Insulin Aspart 100 Units/Ml 3 Ml Pen) 0 unit SUBCUT TIDAC [facility]; Protocol Insulin Aspart (Insulin Aspart 100 Units/Ml 3 Ml Pen) 0 unit SUBCUT TIDAC [facility]; Protocol Last Admin: 03/21/21 11:33 Dose: 1 unit Documented by: Iopamidol (Iopamidol 755 Mg/Ml 500 Ml Multipack Bottle) 80 ml IVPUSH ONETIME ONE Stop: 03/18/21 18:19 Last Admin: 03/18/21 18:19 Dose: 80 ml Documented by: Levothyroxine Sodium 100 mcg/ (Levothyroxine Sodium 75 mcg) 175 mcg PO ACBREAKFAST [facility] Last Admin: 03/21/21 06:33 Dose: 175 mcg Documented by: Metoprolol Tartrate (Metoprolol Tartrate 25 Mg Tab) 25 mg PO Q12HR [facility] Last Admin: 03/21/21 08:40 Dose: 25 mg Documented by: Nystatin (Nystatin Topical Powder 15 Gm Bottle) 0 gm TOP BID PRN PRN Reason: Rash Last Admin: 03/21/21 11:27 Dose: 1 applic Documented by: Ondansetron HCl (Ondansetron 4 Mg/2 Ml Sdv) 4 mg IVPUSH ONETIME ONE Stop: 03/18/21 15:04 Last Admin: 03/18/21 15:21 Dose: 4 mg Documented by: Ondansetron HCl (Ondansetron 4 Mg/2 Ml Sdv) 4 mg IVPUSH Q4H PRN PRN Reason: Nausea/Vomiting Sodium Phosphate (Phosphorus #1 250 Mg Tab) 250 mg PO ONETIME ONE Stop: 03/20/21 07:41 Last Admin: 03/20/21 08:07 Dose: 250 mg Documented by: Sodium Phosphate (Phosphorus #1 250 Mg Tab) 250 mg PO QID [facility] Last Admin: 03/21/21 11:27 Dose: 250 mg Documented by: - Free Text/Narrative Note: I have seen and examined the patient. I have discussed findings and treatment plan with the resident. I agree with the assessment and plan outlined in the following note.
--- NOTE | 2021-03-24 10:00 | PN ---
THC Physician - Brief Progress [id number]/25/2021 15:44[facility] Lyssa Gardiner, [place] - MWN (SADAF) - MWN ICUDARIN MCGEE, GAYLEID+Date of Service 03/19/2021 15:44HPI/[place] nts of Note eICU Progress Note70 y/o female with h/o CHF, COPD on 3L o2, prior PE, and covid 19 diagn osis on 03/16. Patient presentd to ED with chest pain and was found to be on afib with RVR. Patient wa s started on cardizem drip. CTPE was negative for PE. This morning patient converted back to NSR, car dizem drip was discontinued and patient was started on PO cardizem in addittion to PO metoprolol. Pat ient is currently resting comfortably and is on 2L o2eICU Recommendations:Continue cardizem and metop rololReplace electrolyes as neededIncentive spirometerDVT and PUD prophylaxisThank you for allowing u s to participate in the care of your patient.Interventions Major-Arrhythmia - evaluation and manageme nt, Hypoxemia - evaluation and managementIntermediate-Arrhythmia - evaluation and managementElectroni carl Signed by: JUAN LUIS SIMPSON) on 03/19/2021 15:53
== END 2021-03-21 13:20 | disposition home or self-care (01) | DRG 177 ==
LOC: MW.ED 14:14 → MW.ICU 18:43 → MW.MS 03-20 14:20
PROVIDERS: ADMIT Student in an Organized Health Care Education/Training Program; ATTEND Student in an Organized Health Care Education/Training Program
PROC: XW033E5 Introduction of Remdesivir Anti-infective into Peripheral Vein, Percutaneous Approach, New Technology Group 5 (ICD-10-PCS; principal; 2021-03-18)
PROC: 3E0DX3Z Introduction of Anti-inflammatory into Mouth and Pharynx, External Approach (ICD-10-PCS; 2021-03-18)
DX: U07.1 COVID-19 (principal); J12.82 Pneumonia due to coronavirus disease 2019; Z88.6 Allergy status to analgesic agent; E66.2 Morbid (severe) obesity with alveolar hypoventilation; Z68.42 Body mass index [BMI] 45.0-49.9, adult; I48.91 Unspecified atrial fibrillation; Z66 Do not resuscitate; I50.9 Heart failure, unspecified; J44.9 Chronic obstructive pulmonary disease, unspecified; I27.20 Pulmonary hypertension, unspecified; I11.0 Hypertensive heart disease with heart failure; K21.9 Gastro-esophageal reflux disease without esophagitis; E11.9 Type 2 diabetes mellitus without complications; F41.9 Anxiety disorder, unspecified; F32.9 Major depressive disorder, single episode, unspecified; E03.9 Hypothyroidism, unspecified; Z79.82 Long term (current) use of aspirin; Z79.899 Other long term (current) drug therapy; Z86.711 Personal history of pulmonary embolism; Z79.01 Long term (current) use of anticoagulants; Z87.11 Personal history of peptic ulcer disease; I25.2 Old myocardial infarction; Z79.890 Hormone replacement therapy; Z79.84 Long term (current) use of oral hypoglycemic drugs; Z88.0 Allergy status to penicillin; Z88.5 Allergy status to narcotic agent; E83.39 Other disorders of phosphorus metabolism
CPT/HCPCS: 36415; 71275; 84484; 93005; J1170; J2405; J3490; Q9967; 80048; 80053; 82947; 83036; 83735; 84100; 84443; 85025; 96374; 96375; 99285-25; A9270-GY; C9113; J1815-GY; J3475; J8540

== ENCOUNTER 2021-03-25 14:18 | Observation (INO) | payer MEDICARE ==
--- NOTE | 2021-03-25 14:47 | PCM.EKG ---
#1 Interpretation EKG Date: 03/25/21 Time: 14:39 Rhythm: A-Fib Rate (Beats/Min): 109 [place]: LAD-Left [place] Deviation P-Wave: Absent QRS: Normal ST-T: Normal QT: Normal Comparison: No Change (03/18/21) EKG Interpretation Comments: Atrial Fribrillation
[2021-03-25] MEDS ORDERED: Aspirin 81 MG Tab.Chew PO ONE (15:12)
--- NOTE | 2021-03-25 15:23 | CR ---
Indication: Chest pain Technique: Chest 1 view Comparison: CT chest March 18, 2021 Findings/Impression: Cardiomegaly. Normal pulmonary vasculature. There is linear atelectasis in the left mid lung. No focal consolidation, effusion, or pneumothorax identified. No acute osseous abnormality. Dictated by Nayeli Leblanc MD @ 03/25/2021 3:21:30 PM (Electronically Signed)
[2021-03-25] MEDS ORDERED: Alum Hydrox/Mag Hydrox/Simeth 15 ML, Lidocaine 2% 5 ML PO ONE ×2 (15:42)
[2021-03-25 15:53] LABS: CARBON DIOXIDE,CO2 32.4 mmol/L (21.0-32.0); POTASSIUM,K 3.9 mmol/L (3.5-5.1)
[2021-03-25] MEDS ORDERED: Lactated Ringers 1,000 ML IV SCH ×2 (16:15→21:00)
--- NOTE | 2021-03-25 18:14 | EDM.PDOC ---
ED HPI GENERAL MEDICAL PROBLEM - General Chief Complaint: Chest Pain Stated Complaint: CHEST PAINS Time Seen by Provider: 03/25/21 15:06 - History of Present Illness INITIAL COMMENTS - FREE TEXT/NARRATIVE: CHIEF COMPLAINT(S): Chest pain HISTORY OF PRESENT ILLNESS: This is a 70-year-old man with a past medical history of new onset atrial fibrillation, CHF, hypertension, COPD and recent diagnosis of COVID-19 who presents to the emergency department the chief complaint of chest pain. The patient states that she started to experience chest pain which she describes as pressure in the center and the left side of her chest. She states she did she did feel lightheaded and dizzy but denies any syncope, lower extremity edema, recent travel, recent surgery or prior history of DVT or PE. She states that since discharge she has had continued diarrhea and she feels like she is dehydrated. She denies any exacerbating factors or relieving factors for her chest pain. She has not yet tried any medication. There is no radiation of this pain. REVIEW OF SYSTEMS: Constitutional: Denies fever, chills. Eyes: Denies eye pain Ears, Nose, Mouth, & Throat: Denies earache Cardiovascular: Positive for chest pain Respiratory: Denies shortness of breath Gastrointestinal: Positive for diarrhea. Denies nausea, vomiting, hematochezia Genitourinary: Denies hematuria Skin:Denies a rash MSK: Denies joint pain Neurological: Denies blurred vision Psychiatric: Denies depression PAST MEDICAL HISTORY: As per history of present illness and as reviewed below otherwise noncontributory. SURGICAL HISTORY: As per history of present illness and as reviewed below otherwise noncontributory. SOCIAL HISTORY: As per history of present illness and as reviewed below otherwise noncontributory. FAMILY HISTORY: As per history of present illness and as reviewed below otherwise noncontributory. EXAMINATION OF ORGAN SYSTEMS/BODY AREAS: Constitutional: Blood pressure was 128/75, heart rate 104, respiratory rate 24 with an oxygen saturation of 93% on 3 L nasal cannula. Temperature 37.2 General: Elderly woman who is in no acute distress Psychiatric: Appropriate mood and affect. Eyes: No scleral icterus or conjunctival erythema ENMT: Moist mucous membranes. No pharyngeal erythema Cardiovascular: Regular, rate, and rhythm. No gallops, murmurs, or rubs. Bilateral upper extremity pulses symmetric and intact. No peripheral edema. No JVD. Respiratory: Lungs clear to auscultation bilaterally. No wheezes, rales, or rhonchi. Gastrointestinal: Soft, non-tender, non-distended. Normoactive bowel sounds Genitourinary: No suprapubic tenderness Musculoskeletal: Normal range of motion. Skin: No lesions or abrasions. Neurological: Alert, GCS 15 MEDICAL DECISION MAKING AND COURSE IN THE ED WITH INTERPRETATION/REVIEW OF DIAGNOSTIC STUDIES: This is a 70-year-old woman with a complex past medical history who comes to the emergency department with the acute chest pain who is at her baseline hypoxia who is not wheezing on examination who is mildly tachycardic and tachypneic. At this time we did obtain an EKG which was unremarkable. At this time given her age we will obtain CBC, CMP, troponin, chest x-ray. Differential also includes dehydration secondary to diarrhea versus COVID-19 pneumonia. We will provide the patient with aspirin by mouth.. In addition this could be GERD we will provide the patient with a GI cocktail. Laboratory: CBC is unremarkable. CMP reveals hypochloremia at 93, metabolic alkalosis with a bicarbonate of 32.4, acute kidney injury with a creatinine of 1.4, hyperglycemia at 159. Hypoalbuminemia at 3.2. Troponin is negative. Lactic acid is 3.2. COVID-19 is positive. The radiological images were viewed by myself along with reading the report from the radiologist. Chest x-ray reveals cardiomegaly without any other acute cardiopulmonary process. At this time I do believe the patient's tachycardia, weakness are likely secondary to dehydration given the acute kidney injury and lactic acidosis. We will provide the patient with 1 L of lactated Ringer's bolus. I did discuss with the patient at this time about observation admission. She was amenable to this plan. I contacted our hospitalist who accepts the patient for observation admission DISPOSITION: Patient was admitted for observation in stable condition CONDITION: Fair PROCEDURES: None FINAL IMPRESSION(S)/DIAGNOSES: 1. Acute kidney injury 2. Acute chest pain 3. Acute dehydration 4. Acute diarrhea Chiki Bush M.D. chest Pain Score (Numeric/FACES): 8 Headache Pain Score (Numeric/FACES): 8 - Related Data Allergies Allergy/AdvReac Type Severity Reaction Status Date / Time Penicillins Allergy Anaphylactic Verified 03/25/21 15:19 Shock tramadol Allergy Vomiting Verified 03/25/21 15:19 Home Meds: Home Meds Aspirin 81 mg PO DAILY 03/18/21 [History] Diltiazem [Cardizem CD] 120 mg PO DAILY 03/18/21 [History] Fluticasone/Salmeterol [Advair 100-50] 1 puff INH BID 03/18/21 [History] Furosemide [Lasix] 40 mg PO BID 03/18/21 [History] Gabapentin [Neurontin] 600 mg PO BID 03/18/21 [History] Levothyroxine 175 mcg PO ACBREAKFAST 03/18/21 [History] Metoprolol Tartrate [Lopressor] 25 mg PO Q12HR 03/18/21 [History] Montelukast [Singulair] 10 mg PO DAILY 03/18/21 [History] Nystatin [Nystop] 30 gm TOP BID 03/18/21 [History] Omeprazole 20 mg PO BIDAC 03/18/21 [History] acetaZOLAMIDE [Diamox] 250 mg PO ASDIRECTED 03/18/21 [History] hydrOXYzine HCL [Atarax] 25 mg PO Q8H PRN #15 tab 03/18/21 [Rx] metFORMIN [Glucophage XR] 2,000 mg PO WITHDINNER 03/18/21 [History] traZODone HCl [Trazodone HCl] 150 mg PO BEDTIME 03/18/21 [History] Dextromethorphan/guaiFENesin [Robitussin DM] 10 ml PO Q4H PRN #120 ml 03/21/21 [Rx] Past Medical History HEENT History: Reports: None Cardiovascular History: Reports: Afib, Heart Failure, Hypertension, [place], Pulmonary Hypertension Other Cardiovascular History: pulmonary HTN, diabetes Respiratory History: Reports: COPD, Pneumonia, Recurrent, Sleep Apnea Gastrointestinal History: Reports: GERD, PUD Genitourinary History: Reports: None [employer] History: Reports: Musculoskeletal History: Reports: None Neurological History: Reports: None Psychiatric History: Reports: Anxiety, Depression Endocrine/Metabolic History: Reports: Diabetes, Type II, Hypothyroidism, Obesity/BMI 30+ Hematologic History: Reports: None Immunologic History: Reports: None Oncologic (Cancer) History: Reports: None Dermatologic History: Reports: None - Infectious Disease History Infectious Disease History: Reports: Chicken Pox, Measles, Mumps, Novel Coronavirus - Past Surgical History Head Surgeries/Procedures: Reports: None Social & Family History - Family History Family Medical History: No Pertinent Family History Respiratory: Reports: PE - Tobacco Use Tobacco Use Status *Q: Never Tobacco User - Caffeine Use Caffeine Use: Reports: Coffee - Recreational Drug Use Recreational Drug Use: No ED ROS GENERAL - Review of Systems Review Of Systems: See Below ED EXAM, GI/ABD - Physical Exam Exam: See Below Course - Vital Signs Last Recorded V/S: Last Vital Signs Temp 36.6 C 03/25/21 19:09 Pulse 110 H 03/25/21 21:42 Resp 22 H 03/25/21 21:42 BP 109/46 L 03/25/21 21:42 Pulse Ox 96 03/25/21 21:42 - Orders/Labs/Meds Orders: Active Orders 24 hr Category Date Time Status Lactated Ringers [Ringers, Lactated] 1,000 ml Med 03/25/21 16:15 Active IV ASDIRECTED Medication Orders Acetaminophen (Acetaminophen 325 Mg Tab) 650 mg PO Q4H PRN PRN Reason: Pain (Mild 1-3)/fever Last Admin: 03/25/21 22:21 Dose: 650 mg Documented by: SAVANNA Aspirin (Aspirin 81 Mg Tab.Chew) 81 mg PO DAILY [facility] Dextrose/Water (50% Dextrose In Water 50 Ml Syringe) 50 ml IVPUSH ASDIRECTED PRN PRN Reason: Hypoglycemia Glucagon (Glucagon,Human Recombinant 1 Mg Vial) 1 mg IM ASDIRECTED PRN PRN Reason: Hypoglycemia Hydroxyzine HCl (Hydroxyzine Hcl 25 Mg Tab) 25 mg PO Q8H PRN PRN Reason: Dizziness Lactated Ringer's (Ringers, Lactated) 1,000 mls @ 500 mls/hr IV ASDIRECTED [facility] Last Admin: 03/25/21 16:18 Dose: 500 mls/hr Documented by: NGHIA Pantoprazole Sodium 40 mg/ (Sodium Chloride) 10 mls @ 300 mls/hr IV Q24H [facility] Last Admin: 03/25/21 21:42 Dose: 300 mls/hr Documented by: SAVANNA Lactated Ringer's (Ringers, Lactated) 1,000 mls @ 100 mls/hr IV ASDIRECTED [place] Stop: 03/26/21 06:59 Last Admin: 03/25/21 21:42 Dose: 125 mls/hr Documented by: SAVANNA Insulin Aspart (Insulin Aspart 100 Units/Ml 3 Ml Pen) 0 unit SUBCUT TIDAC [facility]; Protocol Levothyroxine Sodium (Levothyroxine 150 Mcg Tab) 150 mcg PO ACBREAKFAST [place] Levothyroxine Sodium (Levothyroxine 25 Mcg Tab) 25 mcg PO ACBREAKFAST [place] Metoprolol Tartrate (Metoprolol Tartrate 25 Mg Tab) 25 mg PO Q12HR [facility] Last Admin: 03/25/21 21:42 Dose: 25 mg Documented by: SAVANNA Ondansetron HCl (Ondansetron 4 Mg/2 Ml Sdv) 4 mg IVPUSH Q4H PRN PRN Reason: Nausea/Vomiting Labs: Laboratory Tests 03/25/21 03/25/21 03/25/21 Range/Units 15:20 15:21 15:21 WBC 10.82 (4.0-11.0) K/uL RBC 5.93 H (4.30-5.90) M/uL Hgb 15.4 (12.0-16.0) g/dL Hct 49.2 H (36.0-46.0) % MCV 83.0 (80.0-98.0) fL MCH 26.0 L (27.0-32.0) pg MCHC 31.3 (31.0-37.0) g/dL RDW Std Deviation 45.7 (28.0-62.0) fl RDW Coeff of Isaias 15 (11.0-15.0) % Plt Count 167 (150-400) K/uL MPV 11.40 (7.40-12.00) fL Neut % (Auto) 75.2 (48.0-80.0) % Lymph % (Auto) 15.0 L (16.0-40.0) % Burnet % (Auto) 7.9 (0.0-15.0) % Eos % (Auto) 1.8 (0.0-7.0) % Baso % (Auto) 0.1 (0.0-1.5) % Neut # (Auto) 8.1 H (1.4-5.7) K/uL Lymph # (Auto) 1.6 (0.6-2.4) K/uL Burnet # (Auto) 0.9 H (0.0-0.8) K/uL Eos # (Auto) 0.2 (0.0-0.7) K/uL Baso # (Auto) 0.0 (0.0-0.1) K/uL Nucleated RBC % 0.0 /100WBC Nucleated RBCs # 0 K/uL INR Sodium 136 (136-145) mmol/L Potassium 3.9 (3.5-5.1) mmol/L Chloride 93 L (98-107) mmol/L Carbon Dioxide 32.4 H (21.0-32.0) mmol/L BUN 15 (7.0-18.0) mg/dL Creatinine 1.4 H (0.6-1.0) mg/dL Est Cr Clr Drug Dosing 30.49 mL/min Estimated GFR (MDRD) 37.1 ml/min Glucose 159 H (74-106) mg/dL Lactic Acid (0.4-2.0) mmol/L Calcium 8.4 L (8.5-10.1) mg/dL Total Bilirubin 0.8 (0.2-1.0) mg/dL AST 31 (15-37) IU/L ALT 28 (14-63) IU/L Alkaline Phosphatase 70 (46-116) U/L Troponin I (0.000-0.056) ng/mL B-Natriuretic Peptide (<100) PG/ML Total Protein 8.5 H (6.4-8.2) g/dL Albumin 3.2 L (3.4-5.0) g/dL Globulin 5.3 H (2.6-4.0) g/dL Albumin/Globulin Ratio 0.6 L (0.9-1.6) SARS-CoV-2 RNA (BENNETT) POSITIVE H (NEGATIVE) 03/25/21 03/25/21 03/25/21 Range/Units 15:21 15:21 15:21 WBC (4.0-11.0) K/uL RBC (4.30-5.90) M/uL Hgb (12.0-16.0) g/dL Hct (36.0-46.0) % MCV (80.0-98.0) fL MCH (27.0-32.0) pg MCHC (31.0-37.0) g/dL RDW Std Deviation (28.0-62.0) fl RDW Coeff of Isaias (11.0-15.0) % Plt Count (150-400) K/uL MPV (7.40-12.00) fL Neut % (Auto) (48.0-80.0) % Lymph % (Auto) (16.0-40.0) % Burnet % (Auto) (0.0-15.0) % Eos % (Auto) (0.0-7.0) % Baso % (Auto) (0.0-1.5) % Neut # (Auto) (1.4-5.7) K/uL Lymph # (Auto) (0.6-2.4) K/uL Burnet # (Auto) (0.0-0.8) K/uL Eos # (Auto) (0.0-0.7) K/uL Baso # (Auto) (0.0-0.1) K/uL Nucleated RBC % /100WBC Nucleated RBCs # K/uL INR 1.05 Sodium (136-145) mmol/L Potassium (3.5-5.1) mmol/L Chloride (98-107) mmol/L Carbon Dioxide (21.0-32.0) mmol/L BUN (7.0-18.0) mg/dL Creatinine (0.6-1.0) mg/dL Est Cr Clr Drug Dosing mL/min Estimated GFR (MDRD) ml/min Glucose (74-106) mg/dL Lactic Acid 3.2 H* (0.4-2.0) mmol/L Calcium (8.5-10.1) mg/dL Total Bilirubin (0.2-1.0) mg/dL AST (15-37) IU/L ALT (14-63) IU/L Alkaline Phosphatase (46-116) U/L Troponin I < 0.050 (0.000-0.056) ng/mL B-Natriuretic Peptide (<100) PG/ML Total Protein (6.4-8.2) g/dL Albumin (3.4-5.0) g/dL Globulin (2.6-4.0) g/dL Albumin/Globulin Ratio (0.9-1.6) SARS-CoV-2 RNA (BENNETT) (NEGATIVE) 03/25/21 Range/Units 15:31 WBC (4.0-11.0) K/uL RBC (4.30-5.90) M/uL Hgb (12.0-16.0) g/dL Hct (36.0-46.0) % MCV (80.0-98.0) fL MCH (27.0-32.0) pg MCHC (31.0-37.0) g/dL RDW Std Deviation (28.0-62.0) fl RDW Coeff of Isaias (11.0-15.0) % Plt Count (150-400) K/uL MPV (7.40-12.00) fL Neut % (Auto) (48.0-80.0) % Lymph % (Auto) (16.0-40.0) % Burnet % (Auto) (0.0-15.0) % Eos % (Auto) (0.0-7.0) % Baso % (Auto) (0.0-1.5) % Neut # (Auto) (1.4-5.7) K/uL Lymph # (Auto) (0.6-2.4) K/uL Burnet # (Auto) (0.0-0.8) K/uL Eos # (Auto) (0.0-0.7) K/uL Baso # (Auto) (0.0-0.1) K/uL Nucleated RBC % /100WBC Nucleated RBCs # K/uL INR Sodium (136-145) mmol/L Potassium (3.5-5.1) mmol/L Chloride (98-107) mmol/L Carbon Dioxide (21.0-32.0) mmol/L BUN (7.0-18.0) mg/dL Creatinine (0.6-1.0) mg/dL Est Cr Clr Drug Dosing mL/min Estimated GFR (MDRD) ml/min Glucose (74-106) mg/dL Lactic Acid (0.4-2.0) mmol/L Calcium (8.5-10.1) mg/dL Total Bilirubin (0.2-1.0) mg/dL AST (15-37) IU/L ALT (14-63) IU/L Alkaline Phosphatase (46-116) U/L Troponin I (0.000-0.056) ng/mL B-Natriuretic Peptide 39 (<100) PG/ML Total Protein (6.4-8.2) g/dL Albumin (3.4-5.0) g/dL Globulin (2.6-4.0) g/dL Albumin/Globulin Ratio (0.9-1.6) SARS-CoV-2 RNA (BENNETT) (NEGATIVE) Meds: Medications Generic Name Dose Route Start Last Admin Trade Name Freq PRN Reason Stop Dose Admin Acetaminophen 650 mg 03/25/21 20:06 03/25/21 22:21 Acetaminophen 325 Mg Tab PO 650 mg Q4H PRN Administration Pain (Mild 1-3)/fever Aspirin 81 mg 03/26/21 09:00 Aspirin 81 Mg Tab.Chew PO DAILY [facility] Dextrose/Water 50 ml 03/25/21 20:02 50% Dextrose In Water 50 Ml Syringe IVPUSH ASDIRECTED PRN Hypoglycemia Glucagon 1 mg 03/25/21 20:02 Glucagon,Human Recombinant 1 Mg Vial IM ASDIRECTED PRN Hypoglycemia Hydroxyzine HCl 25 mg 03/25/21 20:41 Hydroxyzine Hcl 25 Mg Tab PO Q8H PRN Dizziness Lactated Ringer's 1,000 mls @ 500 mls/hr 03/25/21 16:15 03/25/21 16:18 Ringers, Lactated IV 500 mls/hr ASDIRECTED [place] Administration Pantoprazole Sodium 40 mg/ 10 mls @ 300 mls/hr 03/25/21 21:00 03/25/21 21:42 Sodium Chloride IV 300 mls/hr Q24H [place] Administration Lactated Ringer's 1,000 mls @ 100 mls/hr 03/25/21 21:00 03/25/21 21:42 Ringers, Lactated IV 03/26/21 06:59 125 mls/hr ASDIRECTED [place] Administration Insulin Aspart 0 unit 03/26/21 07:30 Insulin Aspart 100 Units/Ml 3 Ml Pen SUBCUT TIDAC [facility] Protocol Levothyroxine Sodium 150 mcg 03/26/21 07:30 Levothyroxine 150 Mcg Tab PO ACBREAKFAST [facility] Levothyroxine Sodium 25 mcg 03/26/21 07:30 Levothyroxine 25 Mcg Tab PO ACBREAKFAST [place] Metoprolol Tartrate 25 mg 03/25/21 21:00 03/25/21 21:42 Metoprolol Tartrate 25 Mg Tab PO 25 mg Q12HR [facility] Administration Ondansetron HCl 4 mg 03/25/21 20:03 Ondansetron 4 Mg/2 Ml Sdv IVPUSH Q4H PRN Nausea/Vomiting Discontinued Medications Generic Name Dose Route Start Last Admin Trade Name Freq PRN Reason Stop Dose Admin Aspirin 324 mg 03/25/21 15:12 03/25/21 15:17 Aspirin 81 Mg Tab.Chew PO 03/25/21 15:13 324 mg ONETIME ONE Administration Al Hydroxide/Mg Hydroxide 15 0 ml 03/25/21 15:42 03/25/21 15:51 ml/ Lidocaine HCl 5 ml PO 03/25/21 15:43 1 each ONETIME ONE Administration Enoxaparin Sodium 40 mg 03/25/21 20:15 Enoxaparin 40 Mg/0.4 Ml Syringe SUBCUT Q24H [place] Departure - Departure Time of Disposition: 18:14 Disposition: Refer to Observation Condition: Fair Clinical Impression: Acute kidney injury - Discharge Information *PRESCRIPTION DRUG MONITORING PROGRAM REVIEWED*: No *COPY OF PRESCRIPTION DRUG MONITORING REPORT IN PATIENT CASH: No Sepsis Event Note (ED) - Evaluation Sepsis Screening Result: No Definite Risk - Focused Exam Vital Signs: Vital Signs Pulse Resp BP Pulse Ox 03/25/21 17:48 99 18 104/73 95 - My Orders Last 24 Hours: My Active Orders 03/25/21 16:15 Lactated Ringers [Ringers, Lactated] 1,000 ml IV ASDIRECTED - Assessment/Plan Last 24 Hours: My Active Orders 03/25/21 16:15 Lactated Ringers [Ringers, Lactated] 1,000 ml IV ASDIRECTED
--- NOTE | 2021-03-25 18:26 | PCM.HP.2 ---
<JusticeWilliam - Last Filed: 03/25/21 22:07> H&P History of Present Illness - General Date of Service: 03/25/21 Admit Problem/Dx: Admission Diagnosis/Problem Admission Diagnosis/Problem Acute kidney injury - History of Present Illness Initial Comments - Free Text/Narative: 70-year-old female with past medical history of A. fib-on metoprolol and Cardizem, heart failure, hypertension, diabetes, COPD, pneumonia, GERD, diabetes type 2.presents to ER with chief complaint of severe chest pain. Patient states chest pain has improved somewhat since being in the ER (patient was given aspirin, GI cocktail IV fluids). Patient states that yesterday evening she began having chest pain, became lightheaded and dizzy. This morning patient states dizziness continued and she fell down to the floor. Denies hitting her head or losing consciousness. Patient denies any recent changes to medications. Of note patient states that she has not taken her Cardizem since discharge. ER course, chest x-ray impression cardiomegaly, no pulmonary vascular. Atelectasis in the left midlung, no focal consolidation, effusion or pneumothorax. Laboratory on admission WBC 10.8, hemoglobin 15.4, hematocrit 41.2, platelet 167, sodium 136, potassium 2.9, BUN 15, creatinine 1.4, lactic acid elevated 3.2, troponin negative x1, BNP 39. Patient received 1 500 mL LR bolus, aspirin 324 mg, GI cocktail. Patient admitted for ACS rule out, DORINA. chest Pain Score (Numeric/FACES): 8 - Related Data Allergies/Adverse Reactions: Allergies Allergy/AdvReac Type Severity Reaction Status Date / Time Penicillins Allergy Anaphylactic Verified 03/25/21 15:19 Shock tramadol Allergy Vomiting Verified 03/25/21 15:19 Home Medications: Home Meds Aspirin 81 mg PO DAILY 03/18/21 [History] Diltiazem [Cardizem CD] 120 mg PO DAILY 03/18/21 [History] Fluticasone/Salmeterol [Advair 100-50] 1 puff INH BID 03/18/21 [History] Furosemide [Lasix] 40 mg PO BID 03/18/21 [History] Gabapentin [Neurontin] 600 mg PO BID 03/18/21 [History] Levothyroxine 175 mcg PO ACBREAKFAST 03/18/21 [History] Metoprolol Tartrate [Lopressor] 25 mg PO Q12HR 03/18/21 [History] Montelukast [Singulair] 10 mg PO DAILY 03/18/21 [History] Nystatin [Nystop] 30 gm TOP BID 03/18/21 [History] Omeprazole 20 mg PO BIDAC 03/18/21 [History] acetaZOLAMIDE [Diamox] 250 mg PO ASDIRECTED 03/18/21 [History] hydrOXYzine HCL [Atarax] 25 mg PO Q8H PRN #15 tab 03/18/21 [Rx] metFORMIN [Glucophage XR] 2,000 mg PO WITHDINNER 03/18/21 [History] traZODone HCl [Trazodone HCl] 150 mg PO BEDTIME 03/18/21 [History] Dextromethorphan/guaiFENesin [Robitussin DM] 10 ml PO Q4H PRN #120 ml 03/21/21 [Rx] Past Medical History HEENT History: Reports: None Cardiovascular History: Reports: Afib, Heart Failure, Hypertension, SC, Pulmonary Hypertension Other Cardiovascular History: pulmonary HTN, diabetes Respiratory History: Reports: COPD, Pneumonia, Recurrent, Sleep Apnea Gastrointestinal History: Reports: GERD, PUD Genitourinary History: Reports: None 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: Musculoskeletal History: Reports: None Neurological History: Reports: None Psychiatric History: Reports: Anxiety, Depression Endocrine/Metabolic History: Reports: Diabetes, Type II, Hypothyroidism, Obesity/BMI 30+ Hematologic History: Reports: None Immunologic History: Reports: None Oncologic (Cancer) History: Reports: None Dermatologic History: Reports: None - Infectious Disease History Infectious Disease History: Reports: Chicken Pox, Measles, Mumps, Novel Coronavirus - Past Surgical History Head Surgeries/Procedures: Reports: None Social & Family History - Family History Family Medical History: No Pertinent Family History Respiratory: Reports: PE - Tobacco Use Tobacco Use Status *Q: Never Tobacco User - Caffeine Use Caffeine Use: Reports: Coffee - Recreational Drug Use Recreational Drug Use: No H&P Review of Systems - Review of Systems: Review Of Systems: See Below General: Denies: Fever, Chills Pulmonary: Denies: Shortness of Breath, Cough Cardiovascular: Reports: Chest Pain. Denies: Dyspnea on Exertion, Orthopnea, Edema Gastrointestinal: Denies: Abdominal Pain, Constipation, Diarrhea, Decreased Appetite, Distension Skin: Denies: Cyanosis Psychiatric: Denies: Confusion, Depression Neurological: Denies: Confusion, Dizziness, Headache, Numbness Exam - Exam Exam: See Below - Vital Signs Vital Signs: Last Vital Signs Temp 98.9 F 03/25/21 14:32 Pulse 78 03/25/21 16:45 Resp 18 03/25/21 16:45 BP 150/82 H 03/25/21 16:45 Pulse Ox 93 L 03/25/21 16:45 Weight: 118.388 kg - Exam General: Alert, Oriented Lungs: Clear to Auscultation, Normal Respiratory Effort Cardiovascular: Regular Rate, Irregular Rhythm GI/Abdominal Exam: Soft, Non-Tender Extremities: No Pedal Edema Neuro Extensive - Mental Status: Alert, Oriented x3 Psychiatric: Alert - Patient Data Lab Results Last 24 hrs: Laboratory Results - last 24 hr 03/25/21 03/25/21 03/25/21 Range/Units 15:21 15:21 15:21 WBC 10.82 (4.0-11.0) K/uL RBC 5.93 H (4.30-5.90) M/uL Hgb 15.4 (12.0-16.0) g/dL Hct 49.2 H (36.0-46.0) % MCV 83.0 (80.0-98.0) fL MCH 26.0 L (27.0-32.0) pg MCHC 31.3 (31.0-37.0) g/dL RDW Std Deviation 45.7 (28.0-62.0) fl RDW Coeff of Isaias 15 (11.0-15.0) % Plt Count 167 (150-400) K/uL MPV 11.40 (7.40-12.00) fL Neut % (Auto) 75.2 (48.0-80.0) % Lymph % (Auto) 15.0 L (16.0-40.0) % [place] % (Auto) 7.9 (0.0-15.0) % Eos % (Auto) 1.8 (0.0-7.0) % Baso % (Auto) 0.1 (0.0-1.5) % Neut # (Auto) 8.1 H (1.4-5.7) K/uL Lymph # (Auto) 1.6 (0.6-2.4) K/uL [place] # (Auto) 0.9 H (0.0-0.8) K/uL Eos # (Auto) 0.2 (0.0-0.7) K/uL Baso # (Auto) 0.0 (0.0-0.1) K/uL Nucleated RBC % 0.0 /100WBC Nucleated RBCs # 0 K/uL INR Sodium 136 (136-145) mmol/L Potassium 3.9 (3.5-5.1) mmol/L Chloride 93 L (98-107) mmol/L Carbon Dioxide 32.4 H (21.0-32.0) mmol/L BUN 15 (7.0-18.0) mg/dL Creatinine 1.4 H (0.6-1.0) mg/dL Est Cr Clr Drug Dosing 30.49 mL/min Estimated GFR (MDRD) 37.1 ml/min Glucose 159 H (74-106) mg/dL Lactic Acid 3.2 H* (0.4-2.0) mmol/L Calcium 8.4 L (8.5-10.1) mg/dL Total Bilirubin 0.8 (0.2-1.0) mg/dL AST 31 (15-37) IU/L ALT 28 (14-63) IU/L Alkaline Phosphatase 70 (46-116) U/L Troponin I (0.000-0.056) ng/mL B-Natriuretic Peptide (<100) PG/ML Total Protein 8.5 H (6.4-8.2) g/dL Albumin 3.2 L (3.4-5.0) g/dL Globulin 5.3 H (2.6-4.0) g/dL Albumin/Globulin Ratio 0.6 L (0.9-1.6) 03/25/21 03/25/21 03/25/21 Range/Units 15:21 15:21 15:31 WBC (4.0-11.0) K/uL RBC (4.30-5.90) M/uL Hgb (12.0-16.0) g/dL Hct (36.0-46.0) % MCV (80.0-98.0) fL MCH (27.0-32.0) pg MCHC (31.0-37.0) g/dL RDW Std Deviation (28.0-62.0) fl RDW Coeff of Isaias (11.0-15.0) % Plt Count (150-400) K/uL MPV (7.40-12.00) fL Neut % (Auto) (48.0-80.0) % Lymph % (Auto) (16.0-40.0) % [place] % (Auto) (0.0-15.0) % Eos % (Auto) (0.0-7.0) % Baso % (Auto) (0.0-1.5) % Neut # (Auto) (1.4-5.7) K/uL Lymph # (Auto) (0.6-2.4) K/uL [place] # (Auto) (0.0-0.8) K/uL Eos # (Auto) (0.0-0.7) K/uL Baso # (Auto) (0.0-0.1) K/uL Nucleated RBC % /100WBC Nucleated RBCs # K/uL INR 1.05 Sodium (136-145) mmol/L Potassium (3.5-5.1) mmol/L Chloride (98-107) mmol/L Carbon Dioxide (21.0-32.0) mmol/L BUN (7.0-18.0) mg/dL Creatinine (0.6-1.0) mg/dL Est Cr Clr Drug Dosing mL/min Estimated GFR (MDRD) ml/min Glucose (74-106) mg/dL Lactic Acid (0.4-2.0) mmol/L Calcium (8.5-10.1) mg/dL Total Bilirubin (0.2-1.0) mg/dL AST (15-37) IU/L ALT (14-63) IU/L Alkaline Phosphatase (46-116) U/L Troponin I < 0.050 (0.000-0.056) ng/mL B-Natriuretic Peptide 39 (<100) PG/ML Total Protein (6.4-8.2) g/dL Albumin (3.4-5.0) g/dL Globulin (2.6-4.0) g/dL Albumin/Globulin Ratio (0.9-1.6) Result Diagrams: 03/25/21 15:21 03/25/21 15:21 Sepsis Event Note - Evaluation Sepsis Screening Result: No Definite Risk - Focused Exam Vital Signs: Vital Signs Temp Pulse Resp BP Pulse Ox 03/25/21 16:45 78 18 150/82 H 93 L 03/25/21 15:55 97 18 104/47 L 97 03/25/21 14:32 98.9 F 104 H 24 H 128/75 90 L - Problem List (1) Acute kidney injury SNOMED Code(s): 62626851, 94212600 ICD Code: N17.9 - ACUTE KIDNEY FAILURE, UNSPECIFIED Status: Acute Current Visit: Yes (2) CHF (congestive heart failure) SNOMED Code(s): 08510147 ICD Code: I50.9 - HEART FAILURE, UNSPECIFIED Status: Acute Current Visit: No (3) COPD (chronic obstructive pulmonary disease) SNOMED Code(s): 91654092 ICD Code: J44.9 - CHRONIC OBSTRUCTIVE PULMONARY DISEASE, UNSPECIFIED Status: Acute Current Visit: No (4) COVID-19 SNOMED Code(s): 586958440 ICD Code: U07.1 - COVID-19 Status: Acute Current Visit: No (5) Diabetes SNOMED Code(s): 38777157 ICD Code: E11.9 - TYPE 2 DIABETES MELLITUS WITHOUT COMPLICATIONS Status: Acute Current Visit: No (6) Hypothyroidism SNOMED Code(s): 51636268 ICD Code: E03.9 - HYPOTHYROIDISM, UNSPECIFIED Status: Acute Current Visit: No (7) Obesity hypoventilation syndrome SNOMED Code(s): 03002890, 650696871 ICD Code: E66.2 - MORBID (SEVERE) OBESITY WITH ALVEOLAR HYPOVENTILATION Status: Acute Current Visit: No Problem List Initiated/Reviewed/Updated: Yes Orders Last 24hrs: Active Orders 24 hr Category Date Time Status Admission Status [Patient Status] [ADT] Stat ADT 03/25/21 18:09 Active REFLEX LACTIC ACID YES OR NO [CHEM] Routine Lab 03/25/21 16:15 Received Lactated Ringers [Ringers, Lactated] 1,000 ml Med 03/25/21 16:15 Active IV ASDIRECTED Medication Orders Lactated Ringer's (Ringers, Lactated) 1,000 mls @ 500 mls/hr IV ASDIRECTED CONCEPCIÓN Last Admin: 03/25/21 16:18 Dose: 500 mls/hr Documented by: CIARAS Assessment/Plan Comment:: ACS rule outtroponin x1 negative, repeat 2 more troponins. EKG interpretation at admission revealed atrial fibrillation AKIpatient's prior creatinine levels 0.9. At admission 1.4, LR 100 mls/hr A. fibmetoprolol 25 mg twice daily. Patient was discharged home at prior admission on 120 mg Cardizem due to episodes of RVR. Patient states she has not taken Cardizem since discharge. Will add Cardizem if necessary based on patient's heart rate [id number] mcg levothyroxine Diabetessliding scale insulin low, ADA Zofran, Protonix, SCDs (per documentation of patient's prior admission on 03-18-21 patient reports history of peptic ulcer disease and history of GI bleed. Patient remained on SCDs during her 4-day admission course at that time) Patient was treated with remdesivir, dexamethasone at prior admission dated 03-18-21. <Aspen Sharp - Last Filed: 03/26/21 15:33> H&P History of Present Illness - General Admit Problem/Dx: Admission Diagnosis/Problem Admission Diagnosis/Problem Acute kidney injury Exam - Vital Signs Vital Signs: Last Vital Signs Temp 38.2 C H 03/26/21 11:45 Pulse 85 03/26/21 11:45 Resp 18 03/26/21 11:45 BP 133/50 L 03/26/21 11:45 Pulse Ox 93 L 03/26/21 11:45 - Patient Data Lab Results Last 24 hrs: Laboratory Results - last 24 hr 03/25/21 03/25/21 03/25/21 Range/Units 15:20 15:21 15:21 WBC (4.0-11.0) K/uL RBC (4.30-5.90) M/uL Hgb (12.0-16.0) g/dL Hct (36.0-46.0) % MCV (80.0-98.0) fL MCH (27.0-32.0) pg MCHC (31.0-37.0) g/dL RDW Std Deviation (28.0-62.0) fl RDW Coeff of Isaias (11.0-15.0) % Plt Count (150-400) K/uL MPV (7.40-12.00) fL Neut % (Auto) (48.0-80.0) % Lymph % (Auto) (16.0-40.0) % [place] % (Auto) (0.0-15.0) % Eos % (Auto) (0.0-7.0) % Baso % (Auto) (0.0-1.5) % Neut # (Auto) (1.4-5.7) K/uL Lymph # (Auto) (0.6-2.4) K/uL [place] # (Auto) (0.0-0.8) K/uL Eos # (Auto) (0.0-0.7) K/uL Baso # (Auto) (0.0-0.1) K/uL Nucleated RBC % /100WBC Nucleated RBCs # K/uL INR Sodium 136 (136-145) mmol/L Potassium 3.9 (3.5-5.1) mmol/L Chloride 93 L (98-107) mmol/L Carbon Dioxide 32.4 H (21.0-32.0) mmol/L BUN 15 (7.0-18.0) mg/dL Creatinine 1.4 H (0.6-1.0) mg/dL Est Cr Clr Drug Dosing 30.49 mL/min Estimated GFR (MDRD) 37.1 ml/min Glucose 159 H (74-106) mg/dL POC Glucose (70-99) mg/dL Lactic Acid 3.2 H* (0.4-2.0) mmol/L Calcium 8.4 L (8.5-10.1) mg/dL Magnesium (1.8-2.4) mg/dL Total Bilirubin 0.8 (0.2-1.0) mg/dL AST 31 (15-37) IU/L ALT 28 (14-63) IU/L Alkaline Phosphatase 70 (46-116) U/L Troponin I (0.000-0.056) ng/mL B-Natriuretic Peptide (<100) PG/ML Total Protein 8.5 H (6.4-8.2) g/dL Albumin 3.2 L (3.4-5.0) g/dL Globulin 5.3 H (2.6-4.0) g/dL Albumin/Globulin Ratio 0.6 L (0.9-1.6) SARS-CoV-2 RNA (BENNETT) POSITIVE H (NEGATIVE) 03/25/21 03/25/21 03/25/21 Range/Units 15:21 15:21 15:31 WBC (4.0-11.0) K/uL RBC (4.30-5.90) M/uL Hgb (12.0-16.0) g/dL Hct (36.0-46.0) % MCV (80.0-98.0) fL MCH (27.0-32.0) pg MCHC (31.0-37.0) g/dL RDW Std Deviation (28.0-62.0) fl RDW Coeff of Isaias (11.0-15.0) % Plt Count (150-400) K/uL MPV (7.40-12.00) fL Neut % (Auto) (48.0-80.0) % Lymph % (Auto) (16.0-40.0) % [place] % (Auto) (0.0-15.0) % Eos % (Auto) (0.0-7.0) % Baso % (Auto) (0.0-1.5) % Neut # (Auto) (1.4-5.7) K/uL Lymph # (Auto) (0.6-2.4) K/uL [place] # (Auto) (0.0-0.8) K/uL Eos # (Auto) (0.0-0.7) K/uL Baso # (Auto) (0.0-0.1) K/uL Nucleated RBC % /100WBC Nucleated RBCs # K/uL INR 1.05 Sodium (136-145) mmol/L Potassium (3.5-5.1) mmol/L Chloride (98-107) mmol/L Carbon Dioxide (21.0-32.0) mmol/L BUN (7.0-18.0) mg/dL Creatinine (0.6-1.0) mg/dL Est Cr Clr Drug Dosing mL/min Estimated GFR (MDRD) ml/min Glucose (74-106) mg/dL POC Glucose (70-99) mg/dL Lactic Acid (0.4-2.0) mmol/L Calcium (8.5-10.1) mg/dL Magnesium (1.8-2.4) mg/dL Total Bilirubin (0.2-1.0) mg/dL AST (15-37) IU/L ALT (14-63) IU/L Alkaline Phosphatase (46-116) U/L Troponin I < 0.050 (0.000-0.056) ng/mL B-Natriuretic Peptide 39 (<100) PG/ML Total Protein (6.4-8.2) g/dL Albumin (3.4-5.0) g/dL Globulin (2.6-4.0) g/dL Albumin/Globulin Ratio (0.9-1.6) SARS-CoV-2 RNA (BENNETT) (NEGATIVE) 03/25/21 03/25/21 03/26/21 Range/Units 20:24 20:24 01:00 WBC (4.0-11.0) K/uL RBC (4.30-5.90) M/uL Hgb (12.0-16.0) g/dL Hct (36.0-46.0) % MCV (80.0-98.0) fL MCH (27.0-32.0) pg MCHC (31.0-37.0) g/dL RDW Std Deviation (28.0-62.0) fl RDW Coeff of Isaias (11.0-15.0) % Plt Count (150-400) K/uL MPV (7.40-12.00) fL Neut % (Auto) (48.0-80.0) % Lymph % (Auto) (16.0-40.0) % [place] % (Auto) (0.0-15.0) % Eos % (Auto) (0.0-7.0) % Baso % (Auto) (0.0-1.5) % Neut # (Auto) (1.4-5.7) K/uL Lymph # (Auto) (0.6-2.4) K/uL [place] # (Auto) (0.0-0.8) K/uL Eos # (Auto) (0.0-0.7) K/uL Baso # (Auto) (0.0-0.1) K/uL Nucleated RBC % /100WBC Nucleated RBCs # K/uL INR Sodium (136-145) mmol/L Potassium (3.5-5.1) mmol/L Chloride (98-107) mmol/L Carbon Dioxide (21.0-32.0) mmol/L BUN (7.0-18.0) mg/dL Creatinine (0.6-1.0) mg/dL Est Cr Clr Drug Dosing mL/min Estimated GFR (MDRD) ml/min Glucose (74-106) mg/dL POC Glucose (70-99) mg/dL Lactic Acid 1.3 (0.4-2.0) mmol/L Calcium (8.5-10.1) mg/dL Magnesium (1.8-2.4) mg/dL Total Bilirubin (0.2-1.0) mg/dL AST (15-37) IU/L ALT (14-63) IU/L Alkaline Phosphatase (46-116) U/L Troponin I < 0.050 < 0.050 (0.000-0.056) ng/mL B-Natriuretic Peptide (<100) PG/ML Total Protein (6.4-8.2) g/dL Albumin (3.4-5.0) g/dL Globulin (2.6-4.0) g/dL Albumin/Globulin Ratio (0.9-1.6) SARS-CoV-2 RNA (BENNETT) (NEGATIVE) 03/26/21 03/26/21 03/26/21 Range/Units 05:10 05:10 08:20 WBC 6.42 (4.0-11.0) K/uL RBC 4.94 (4.30-5.90) M/uL Hgb 12.7 (12.0-16.0) g/dL Hct 41.1 (36.0-46.0) % MCV 83.2 (80.0-98.0) fL MCH 25.7 L (27.0-32.0) pg MCHC 30.9 L (31.0-37.0) g/dL RDW Std Deviation 46.0 (28.0-62.0) fl RDW Coeff of Isaias 15 (11.0-15.0) % Plt Count 164 (150-400) K/uL MPV 11.00 (7.40-12.00) fL Neut % (Auto) 63.7 (48.0-80.0) % Lymph % (Auto) 21.8 (16.0-40.0) % [place] % (Auto) 10.1 (0.0-15.0) % Eos % (Auto) 4.2 (0.0-7.0) % Baso % (Auto) 0.2 (0.0-1.5) % Neut # (Auto) 4.1 (1.4-5.7) K/uL Lymph # (Auto) 1.4 (0.6-2.4) K/uL [place] # (Auto) 0.7 (0.0-0.8) K/uL Eos # (Auto) 0.3 (0.0-0.7) K/uL Baso # (Auto) 0.0 (0.0-0.1) K/uL Nucleated RBC % 0.0 /100WBC Nucleated RBCs # 0 K/uL INR Sodium 139 (136-145) mmol/L Potassium 3.2 L (3.5-5.1) mmol/L Chloride 98 (98-107) mmol/L Carbon Dioxide 32.3 H (21.0-32.0) mmol/L BUN 11 (7.0-18.0) mg/dL Creatinine 0.9 (0.6-1.0) mg/dL Est Cr Clr Drug Dosing 47.43 mL/min Estimated GFR (MDRD) > 60.0 ml/min Glucose 125 H (74-106) mg/dL POC Glucose 134 H (70-99) mg/dL Lactic Acid (0.4-2.0) mmol/L Calcium 7.6 L (8.5-10.1) mg/dL Magnesium 1.7 L (1.8-2.4) mg/dL Total Bilirubin (0.2-1.0) mg/dL AST (15-37) IU/L ALT (14-63) IU/L Alkaline Phosphatase (46-116) U/L Troponin I (0.000-0.056) ng/mL B-Natriuretic Peptide (<100) PG/ML Total Protein (6.4-8.2) g/dL Albumin (3.4-5.0) g/dL Globulin (2.6-4.0) g/dL Albumin/Globulin Ratio (0.9-1.6) SARS-CoV-2 RNA (BENNETT) (NEGATIVE) 03/26/21 Range/Units 11:41 WBC (4.0-11.0) K/uL RBC (4.30-5.90) M/uL Hgb (12.0-16.0) g/dL Hct (36.0-46.0) % MCV (80.0-98.0) fL MCH (27.0-32.0) pg MCHC (31.0-37.0) g/dL RDW Std Deviation (28.0-62.0) fl RDW Coeff of Isaias (11.0-15.0) % Plt Count (150-400) K/uL MPV (7.40-12.00) fL Neut % (Auto) (48.0-80.0) % Lymph % (Auto) (16.0-40.0) % [place] % (Auto) (0.0-15.0) % Eos % (Auto) (0.0-7.0) % Baso % (Auto) (0.0-1.5) % Neut # (Auto) (1.4-5.7) K/uL Lymph # (Auto) (0.6-2.4) K/uL [place] # (Auto) (0.0-0.8) K/uL Eos # (Auto) (0.0-0.7) K/uL Baso # (Auto) (0.0-0.1) K/uL Nucleated RBC % /100WBC Nucleated RBCs # K/uL INR Sodium (136-145) mmol/L Potassium (3.5-5.1) mmol/L Chloride (98-107) mmol/L Carbon Dioxide (21.0-32.0) mmol/L BUN (7.0-18.0) mg/dL Creatinine (0.6-1.0) mg/dL Est Cr Clr Drug Dosing mL/min Estimated GFR (MDRD) ml/min Glucose (74-106) mg/dL POC Glucose 125 H (70-99) mg/dL Lactic Acid (0.4-2.0) mmol/L Calcium (8.5-10.1) mg/dL Magnesium (1.8-2.4) mg/dL Total Bilirubin (0.2-1.0) mg/dL AST (15-37) IU/L ALT (14-63) IU/L Alkaline Phosphatase (46-116) U/L Troponin I (0.000-0.056) ng/mL B-Natriuretic Peptide (<100) PG/ML Total Protein (6.4-8.2) g/dL Albumin (3.4-5.0) g/dL Globulin (2.6-4.0) g/dL Albumin/Globulin Ratio (0.9-1.6) SARS-CoV-2 RNA (BENNETT) (NEGATIVE) Result Diagrams: 03/26/21 05:10 03/26/21 05:10 Sepsis Event Note - Focused Exam Vital Signs: Vital Signs Temp Pulse Pulse Resp BP BP Pulse Ox 03/26/21 11:45 38.2 C H 85 18 133/50 L 93 L 03/26/21 10:30 104 H 112/64 03/26/21 10:08 104 H 112/64 03/26/21 08:45 109/61 03/26/21 07:58 36.8 C 90 18 103/55 L 94 L Orders Last 24hrs: Active Orders 24 hr Category Date Time Status Admission Status [Patient Status] [ADT] Stat ADT 03/25/21 18:09 Active Antiembolic Devices [RC] PER UNIT ROUTINE Care 03/25/21 20:08 Active Oxygen Therapy [RC] PRN Care 03/25/21 20:04 Active Oxygen Therapy [RC] PRN Care 03/25/21 20:06 Active Telemetry Monitoring [Cardiac Monitoring] [RC] Q8H Care 03/25/21 19:19 Active VTE/DVT Education [RC] PER UNIT ROUTINE Care 03/25/21 20:04 Active VTE/DVT Education [RC] PER UNIT ROUTINE Care 03/25/21 20:06 Active Vital Signs [RC] Q4H Care 03/25/21 20:04 Active Vital Signs [RC] Q4H Care 03/25/21 20:06 Active ADA Diabetic [[employer] Diet] [DIET Diet 03/25/21 Dinner Active ] BASIC METABOLIC PANEL,BMP [CHEM] AM Lab 03/27/21 05:11 Ordered CBC WITH AUTO DIFF [HEME] AM Lab 03/27/21 05:11 Ordered Acetaminophen [TylenoL] Med 03/25/21 20:06 Active 650 mg PO Q4H PRN Aspirin Med 03/26/21 09:00 Active 81 mg PO DAILY Codeine/guaiFENesin [Robitussin AC] Med 03/26/21 15:26 Ordered 5 ml PO Q6H PRN Dextrose 50% in Water Med 03/25/21 20:02 Active 50 ml IVPUSH ASDIRECTED PRN Glucagon,Human Recombinant [GlucaGen] Med 03/25/21 20:02 Active 1 mg IM ASDIRECTED PRN Insulin Aspart [NovoLOG] Med 03/26/21 07:30 Active See Protocol SUBCUT TIDAC Levothyroxine Med 03/26/21 07:30 Active 150 mcg PO ACBREAKFAST Levothyroxine Med 03/26/21 07:30 Active 25 mcg PO ACBREAKFAST Metoclopramide [Reglan] Med 03/26/21 14:17 Active 5 mg IVPUSH Q4H PRN Metoprolol Tartrate [Lopressor] Med 03/25/21 21:00 Active 25 mg PO Q12HR Pantoprazole [ProTONIX IV] 40 mg Med 03/25/21 21:00 Active Sodium Chloride 0.9% [Normal Saline] 10 ml IV Q24H hydrOXYzine HCL [Atarax] Med 03/25/21 20:41 Active 25 mg PO Q8H PRN SCD [Sequential Compression Device] [OM.PC] Routine Oth 03/25/21 20:08 Ordered Resuscitation Status Routine Resus Stat 03/25/21 20:04 Ordered Medication Orders Acetaminophen (Acetaminophen 325 Mg Tab) 650 mg PO Q4H PRN PRN Reason: Pain (Mild 1-3)/fever Last Admin: 03/25/21 22:21 Dose: 650 mg Documented by: SAVANNA Aspirin (Aspirin 81 Mg Tab.Chew) 81 mg PO DAILY [facility] Last Admin: 03/26/21 08:12 Dose: 81 mg Documented by: SHIRLEY Dextrose/Water (50% Dextrose In Water 50 Ml Syringe) 50 ml IVPUSH ASDIRECTED PRN PRN Reason: Hypoglycemia Glucagon (Glucagon,Human Recombinant 1 Mg Vial) 1 mg IM ASDIRECTED PRN PRN Reason: Hypoglycemia Guaifenesin/Codeine Phosphate (Codeine/Guaifenesin 10-100 Mg/5 Ml Syrup 5 Ml Cup) 5 ml PO Q6H PRN PRN Reason: Cough Hydroxyzine HCl (Hydroxyzine Hcl 25 Mg Tab) 25 mg PO Q8H PRN PRN Reason: Dizziness Pantoprazole Sodium 40 mg/ (Sodium Chloride) 10 mls @ 300 mls/hr IV Q24H [facility] Last Admin: 03/25/21 21:42 Dose: 300 mls/hr Documented by: SAVANNA Insulin Aspart (Insulin Aspart 100 Units/Ml 3 Ml Pen) 0 unit SUBCUT TIDAC [facility]; Protocol Last Admin: 03/26/21 11:48 Dose: Not Given Documented by: Admin: 03/26/21 08:23 Dose: Not Given Documented by: SHIRLEY Levothyroxine Sodium (Levothyroxine 150 Mcg Tab) 150 mcg PO ACBREAKFAST [facility] Last Admin: 03/26/21 08:11 Dose: 150 mcg Documented by: SHIRLEY Levothyroxine Sodium (Levothyroxine 25 Mcg Tab) 25 mcg PO ACBREAKFAST [facility] Last Admin: 03/26/21 08:11 Dose: 25 mcg Documented by: SHIRLEY Metoclopramide HCl (Metoclopramide 10 Mg/2 Ml Sdv) 5 mg IVPUSH Q4H PRN PRN Reason: Nausea/Vomiting Last Admin: 03/26/21 14:51 Dose: 5 mg Documented by: SHIRLEY Metoprolol Tartrate (Metoprolol Tartrate 25 Mg Tab) 25 mg PO Q12HR [facility] Last Admin: 03/26/21 10:30 Dose: 25 mg Documented by: Admin: 03/25/21 21:42 Dose: 25 mg Documented by: SAVANNA Assessment/Plan Comment:: I have seen and evaluated the patient and agree with the residents note unless specified in my note I performed a history and physical exam of the patient and discussed management with resident. I have reviewed the residents note and agree with documented findings and plan unless otherwise specified in my note.
[2021-03-25] MEDS ORDERED: 50% Dextrose in Water 50 ML Syringe IVPUSH PRN (20:02)
[2021-03-25] MEDS ORDERED: Glucagon,Human Recombinant 1 MG Vial IM PRN (20:02)
[2021-03-25] MEDS ORDERED: Ondansetron 4 MG/2 ML SDV IVPUSH PRN (20:03)
[2021-03-25] MEDS ORDERED: Enoxaparin 40 MG/0.4 ML Syringe SUBCUT SCH (20:15)
[2021-03-25] MEDS ORDERED: hydrOXYzine HCl 25 MG Tab PO PRN (20:41)
[2021-03-25] MEDS: Pantoprazole 40 MG in Sodium Chloride 0.9% 10 ML IV SCH (21:42)
[2021-03-25] MEDS: Metoprolol Tartrate 25 MG Tab PO SCH (21:42)
[2021-03-25] MEDS: Acetaminophen 325 MG Tab PO PRN (22:21)
[2021-03-26 06:34] LABS: BLOOD UREA NITROGEN,BUN 11 mg/dL (7.0-18.0); CARBON DIOXIDE,CO2 32.3 mmol/L (21.0-32.0); CHLORIDE,CL 98 mmol/L (98-107); GLUCOSE RANDOM 125 mg/dL (74-106); POTASSIUM,K 3.2 mmol/L (3.5-5.1); SODIUM,NA 139 mmol/L (136-145)
[2021-03-26] MEDS ORDERED: Magnesium Sulfate/Water 2 GM in Premix Bag 1 BAG IV ONE (07:56)
[2021-03-26] MEDS ORDERED: Potassium Chloride 20 MEQ Tab.ER PO ONE (07:56)
[2021-03-26] MEDS: Levothyroxine 25 MCG Tab PO SCH (08:11)
[2021-03-26] MEDS: Levothyroxine 150 MCG Tab PO SCH (08:11)
[2021-03-26] MEDS: Aspirin 81 MG Tab.Chew PO SCH (08:12)
[2021-03-26] MEDS: Insulin Aspart 100 Units/ML 3 ML Pen SUBCUT SCH ×3 (08:23→18:49)
[2021-03-26] MEDS: Metoprolol Tartrate 25 MG Tab PO SCH ×2 (10:30→20:43)
--- NOTE | 2021-03-26 13:46 | PCM.PN ---
- General Info Date of Service: 03/26/21 Subjective Update: Patient states fatigue this morning. Patient denies chest pain, shortness of breath, fever, chills, nausea, vomiting. When asked patient if she would like to go home, patient states that she would if necessary but currently has significant fatigue. - Review of Systems General: Reports: Fatigue. Denies: Fever, Chills Pulmonary: Denies: Shortness of Breath, Cough Cardiovascular: Denies: Chest Pain, Dyspnea on Exertion, Edema Gastrointestinal: Denies: Abdominal Pain, Decreased Appetite, Diarrhea, Nausea, Vomiting Neurological: Denies: Confusion, Dizziness, Headache Psychiatric: Denies: Confusion - Patient Data Vitals - Most Recent: Last Vital Signs Temp 100.7 F H 03/26/21 11:45 Pulse 85 03/26/21 11:45 Resp 18 03/26/21 11:45 BP 133/50 L 03/26/21 11:45 Pulse Ox 93 L 03/26/21 11:45 Weight - Most Recent: 251 lb 9.6 oz I&O - Last 24 Hours: Intake & Output 03/25/21 03/26/21 03/26/21 22:59 06:59 14:59 Intake Total 300 Output Total 425 Balance -125 Lab Results Last 24 Hours: Laboratory Results - last 24 hr 03/25/21 03/25/21 03/25/21 Range/Units 15:20 15:21 15:21 WBC 10.82 (4.0-11.0) K/uL RBC 5.93 H (4.30-5.90) M/uL Hgb 15.4 (12.0-16.0) g/dL Hct 49.2 H (36.0-46.0) % MCV 83.0 (80.0-98.0) fL MCH 26.0 L (27.0-32.0) pg MCHC 31.3 (31.0-37.0) g/dL RDW Std Deviation 45.7 (28.0-62.0) fl RDW Coeff of Isaias 15 (11.0-15.0) % Plt Count 167 (150-400) K/uL MPV 11.40 (7.40-12.00) fL Neut % (Auto) 75.2 (48.0-80.0) % Lymph % (Auto) 15.0 L (16.0-40.0) % [place] % (Auto) 7.9 (0.0-15.0) % Eos % (Auto) 1.8 (0.0-7.0) % Baso % (Auto) 0.1 (0.0-1.5) % Neut # (Auto) 8.1 H (1.4-5.7) K/uL Lymph # (Auto) 1.6 (0.6-2.4) K/uL [place] # (Auto) 0.9 H (0.0-0.8) K/uL Eos # (Auto) 0.2 (0.0-0.7) K/uL Baso # (Auto) 0.0 (0.0-0.1) K/uL Nucleated RBC % 0.0 /100WBC Nucleated RBCs # 0 K/uL INR Sodium 136 (136-145) mmol/L Potassium 3.9 (3.5-5.1) mmol/L Chloride 93 L (98-107) mmol/L Carbon Dioxide 32.4 H (21.0-32.0) mmol/L BUN 15 (7.0-18.0) mg/dL Creatinine 1.4 H (0.6-1.0) mg/dL Est Cr Clr Drug Dosing 30.49 mL/min Estimated GFR (MDRD) 37.1 ml/min Glucose 159 H (74-106) mg/dL POC Glucose (70-99) mg/dL Lactic Acid (0.4-2.0) mmol/L Calcium 8.4 L (8.5-10.1) mg/dL Magnesium (1.8-2.4) mg/dL Total Bilirubin 0.8 (0.2-1.0) mg/dL AST 31 (15-37) IU/L ALT 28 (14-63) IU/L Alkaline Phosphatase 70 (46-116) U/L Troponin I (0.000-0.056) ng/mL B-Natriuretic Peptide (<100) PG/ML Total Protein 8.5 H (6.4-8.2) g/dL Albumin 3.2 L (3.4-5.0) g/dL Globulin 5.3 H (2.6-4.0) g/dL Albumin/Globulin Ratio 0.6 L (0.9-1.6) SARS-CoV-2 RNA ([facility]NETT) POSITIVE H (NEGATIVE) 03/25/21 03/25/21 03/25/21 Range/Units 15:21 15:21 15:21 WBC (4.0-11.0) K/uL RBC (4.30-5.90) M/uL Hgb (12.0-16.0) g/dL Hct (36.0-46.0) % MCV (80.0-98.0) fL MCH (27.0-32.0) pg MCHC (31.0-37.0) g/dL RDW Std Deviation (28.0-62.0) fl RDW Coeff of Isaias (11.0-15.0) % Plt Count (150-400) K/uL MPV (7.40-12.00) fL Neut % (Auto) (48.0-80.0) % Lymph % (Auto) (16.0-40.0) % [place] % (Auto) (0.0-15.0) % Eos % (Auto) (0.0-7.0) % Baso % (Auto) (0.0-1.5) % Neut # (Auto) (1.4-5.7) K/uL Lymph # (Auto) (0.6-2.4) K/uL [place] # (Auto) (0.0-0.8) K/uL Eos # (Auto) (0.0-0.7) K/uL Baso # (Auto) (0.0-0.1) K/uL Nucleated RBC % /100WBC Nucleated RBCs # K/uL INR 1.05 Sodium (136-145) mmol/L Potassium (3.5-5.1) mmol/L Chloride (98-107) mmol/L Carbon Dioxide (21.0-32.0) mmol/L BUN (7.0-18.0) mg/dL Creatinine (0.6-1.0) mg/dL Est Cr Clr Drug Dosing mL/min Estimated GFR (MDRD) ml/min Glucose (74-106) mg/dL POC Glucose (70-99) mg/dL Lactic Acid 3.2 H* (0.4-2.0) mmol/L Calcium (8.5-10.1) mg/dL Magnesium (1.8-2.4) mg/dL Total Bilirubin (0.2-1.0) mg/dL AST (15-37) IU/L ALT (14-63) IU/L Alkaline Phosphatase (46-116) U/L Troponin I < 0.050 (0.000-0.056) ng/mL B-Natriuretic Peptide (<100) PG/ML Total Protein (6.4-8.2) g/dL Albumin (3.4-5.0) g/dL Globulin (2.6-4.0) g/dL Albumin/Globulin Ratio (0.9-1.6) SARS-CoV-2 RNA ([facility]NETT) (NEGATIVE) 03/25/21 03/25/21 03/25/21 Range/Units 15:31 20:24 20:24 WBC (4.0-11.0) K/uL RBC (4.30-5.90) M/uL Hgb (12.0-16.0) g/dL Hct (36.0-46.0) % MCV (80.0-98.0) fL MCH (27.0-32.0) pg MCHC (31.0-37.0) g/dL RDW Std Deviation (28.0-62.0) fl RDW Coeff of Isaias (11.0-15.0) % Plt Count (150-400) K/uL MPV (7.40-12.00) fL Neut % (Auto) (48.0-80.0) % Lymph % (Auto) (16.0-40.0) % [place] % (Auto) (0.0-15.0) % Eos % (Auto) (0.0-7.0) % Baso % (Auto) (0.0-1.5) % Neut # (Auto) (1.4-5.7) K/uL Lymph # (Auto) (0.6-2.4) K/uL [place] # (Auto) (0.0-0.8) K/uL Eos # (Auto) (0.0-0.7) K/uL Baso # (Auto) (0.0-0.1) K/uL Nucleated RBC % /100WBC Nucleated RBCs # K/uL INR Sodium (136-145) mmol/L Potassium (3.5-5.1) mmol/L Chloride (98-107) mmol/L Carbon Dioxide (21.0-32.0) mmol/L BUN (7.0-18.0) mg/dL Creatinine (0.6-1.0) mg/dL Est Cr Clr Drug Dosing mL/min Estimated GFR (MDRD) ml/min Glucose (74-106) mg/dL POC Glucose (70-99) mg/dL Lactic Acid 1.3 (0.4-2.0) mmol/L Calcium (8.5-10.1) mg/dL Magnesium (1.8-2.4) mg/dL Total Bilirubin (0.2-1.0) mg/dL AST (15-37) IU/L ALT (14-63) IU/L Alkaline Phosphatase (46-116) U/L Troponin I < 0.050 (0.000-0.056) ng/mL B-Natriuretic Peptide 39 (<100) PG/ML Total Protein (6.4-8.2) g/dL Albumin (3.4-5.0) g/dL Globulin (2.6-4.0) g/dL Albumin/Globulin Ratio (0.9-1.6) SARS-CoV-2 RNA ([facility]) (NEGATIVE) 03/26/21 03/26/21 03/26/21 Range/Units 01:00 05:10 05:10 WBC 6.42 (4.0-11.0) K/uL RBC 4.94 (4.30-5.90) M/uL Hgb 12.7 (12.0-16.0) g/dL Hct 41.1 (36.0-46.0) % MCV 83.2 (80.0-98.0) fL MCH 25.7 L (27.0-32.0) pg MCHC 30.9 L (31.0-37.0) g/dL RDW Std Deviation 46.0 (28.0-62.0) fl RDW Coeff of Isaias 15 (11.0-15.0) % Plt Count 164 (150-400) K/uL MPV 11.00 (7.40-12.00) fL Neut % (Auto) 63.7 (48.0-80.0) % Lymph % (Auto) 21.8 (16.0-40.0) % [place] % (Auto) 10.1 (0.0-15.0) % Eos % (Auto) 4.2 (0.0-7.0) % Baso % (Auto) 0.2 (0.0-1.5) % Neut # (Auto) 4.1 (1.4-5.7) K/uL Lymph # (Auto) 1.4 (0.6-2.4) K/uL [place] # (Auto) 0.7 (0.0-0.8) K/uL Eos # (Auto) 0.3 (0.0-0.7) K/uL Baso # (Auto) 0.0 (0.0-0.1) K/uL Nucleated RBC % 0.0 /100WBC Nucleated RBCs # 0 K/uL INR Sodium 139 (136-145) mmol/L Potassium 3.2 L (3.5-5.1) mmol/L Chloride 98 (98-107) mmol/L Carbon Dioxide 32.3 H (21.0-32.0) mmol/L BUN 11 (7.0-18.0) mg/dL Creatinine 0.9 (0.6-1.0) mg/dL Est Cr Clr Drug Dosing 47.43 mL/min Estimated GFR (MDRD) > 60.0 ml/min Glucose 125 H (74-106) mg/dL POC Glucose (70-99) mg/dL Lactic Acid (0.4-2.0) mmol/L Calcium 7.6 L (8.5-10.1) mg/dL Magnesium 1.7 L (1.8-2.4) mg/dL Total Bilirubin (0.2-1.0) mg/dL AST (15-37) IU/L ALT (14-63) IU/L Alkaline Phosphatase (46-116) U/L Troponin I < 0.050 (0.000-0.056) ng/mL B-Natriuretic Peptide (<100) PG/ML Total Protein (6.4-8.2) g/dL Albumin (3.4-5.0) g/dL Globulin (2.6-4.0) g/dL Albumin/Globulin Ratio (0.9-1.6) SARS-CoV-2 RNA ([facility]NETT) (NEGATIVE) 03/26/21 03/26/21 Range/Units 08:20 11:41 WBC (4.0-11.0) K/uL RBC (4.30-5.90) M/uL Hgb (12.0-16.0) g/dL Hct (36.0-46.0) % MCV (80.0-98.0) fL MCH (27.0-32.0) pg MCHC (31.0-37.0) g/dL RDW Std Deviation (28.0-62.0) fl RDW Coeff of Isaias (11.0-15.0) % Plt Count (150-400) K/uL MPV (7.40-12.00) fL Neut % (Auto) (48.0-80.0) % Lymph % (Auto) (16.0-40.0) % [place] % (Auto) (0.0-15.0) % Eos % (Auto) (0.0-7.0) % Baso % (Auto) (0.0-1.5) % Neut # (Auto) (1.4-5.7) K/uL Lymph # (Auto) (0.6-2.4) K/uL [place] # (Auto) (0.0-0.8) K/uL Eos # (Auto) (0.0-0.7) K/uL Baso # (Auto) (0.0-0.1) K/uL Nucleated RBC % /100WBC Nucleated RBCs # K/uL INR Sodium (136-145) mmol/L Potassium (3.5-5.1) mmol/L Chloride (98-107) mmol/L Carbon Dioxide (21.0-32.0) mmol/L BUN (7.0-18.0) mg/dL Creatinine (0.6-1.0) mg/dL Est Cr Clr Drug Dosing mL/min Estimated GFR (MDRD) ml/min Glucose (74-106) mg/dL POC Glucose 134 H 125 H (70-99) mg/dL Lactic Acid (0.4-2.0) mmol/L Calcium (8.5-10.1) mg/dL Magnesium (1.8-2.4) mg/dL Total Bilirubin (0.2-1.0) mg/dL AST (15-37) IU/L ALT (14-63) IU/L Alkaline Phosphatase (46-116) U/L Troponin I (0.000-0.056) ng/mL B-Natriuretic Peptide (<100) PG/ML Total Protein (6.4-8.2) g/dL Albumin (3.4-5.0) g/dL Globulin (2.6-4.0) g/dL Albumin/Globulin Ratio (0.9-1.6) SARS-CoV-2 RNA ([facility]) (NEGATIVE) Med Orders - Current: Current Medications Acetaminophen (Acetaminophen 325 Mg Tab) 650 mg PO Q4H PRN PRN Reason: Pain (Mild 1-3)/fever Last Admin: 03/25/21 22:21 Dose: 650 mg Documented by: Aspirin (Aspirin 81 Mg Tab.Chew) 81 mg PO DAILY [facility] Last Admin: 03/26/21 08:12 Dose: 81 mg Documented by: Dextrose/Water (50% Dextrose In Water 50 Ml Syringe) 50 ml IVPUSH ASDIRECTED PRN PRN Reason: Hypoglycemia Glucagon (Glucagon,Human Recombinant 1 Mg Vial) 1 mg IM ASDIRECTED PRN PRN Reason: Hypoglycemia Hydroxyzine HCl (Hydroxyzine Hcl 25 Mg Tab) 25 mg PO Q8H PRN PRN Reason: Dizziness Lactated Ringer's (Ringers, Lactated) 1,000 mls @ 500 mls/hr IV ASDIRECTED [facility] Last Admin: 03/25/21 16:18 Dose: 500 mls/hr Documented by: Pantoprazole Sodium 40 mg/ (Sodium Chloride) 10 mls @ 300 mls/hr IV Q24H [facility] Last Admin: 03/25/21 21:42 Dose: 300 mls/hr Documented by: Insulin Aspart (Insulin Aspart 100 Units/Ml 3 Ml Pen) 0 unit SUBCUT TIDAC [facility]; Protocol Last Admin: 03/26/21 11:48 Dose: Not Given Documented by: Levothyroxine Sodium (Levothyroxine 150 Mcg Tab) 150 mcg PO ACBREAKFAST [facility] Last Admin: 03/26/21 08:11 Dose: 150 mcg Documented by: Levothyroxine Sodium (Levothyroxine 25 Mcg Tab) 25 mcg PO ACBREAKFAST [facility] Last Admin: 03/26/21 08:11 Dose: 25 mcg Documented by: Metoprolol Tartrate (Metoprolol Tartrate 25 Mg Tab) 25 mg PO Q12HR [facility] Last Admin: 03/26/21 10:30 Dose: 25 mg Documented by: Ondansetron HCl (Ondansetron 4 Mg/2 Ml Sdv) 4 mg IVPUSH Q4H PRN PRN Reason: Nausea/Vomiting Last Admin: 03/26/21 10:07 Dose: 4 mg Documented by: Discontinued Medications Aspirin (Aspirin 81 Mg Tab.Chew) 324 mg PO ONETIME ONE Stop: 03/25/21 15:13 Last Admin: 03/25/21 15:17 Dose: 324 mg Documented by: Al Hydroxide/Mg Hydroxide 15 (ml/ Lidocaine HCl 5 ml) 0 ml PO ONETIME ONE Stop: 03/25/21 15:43 Last Admin: 03/25/21 15:51 Dose: 1 each Documented by: Enoxaparin Sodium (Enoxaparin 40 Mg/0.4 Ml Syringe) 40 mg SUBCUT Q24H [facility] Lactated Ringer's (Ringers, Lactated) 1,000 mls @ 100 mls/hr IV ASDIRECTED [facility] Stop: 03/26/21 06:59 Last Admin: 03/25/21 21:42 Dose: 125 mls/hr Documented by: Magnesium Sulfate 2 gm/ Premix 50 mls @ 12.5 mls/hr IV ONETIME ONE Stop: 03/26/21 11:55 Last Admin: 03/26/21 08:22 Dose: 12.5 mls/hr Documented by: Potassium Chloride (Potassium Chloride 20 Meq Tab.Er) 40 meq PO ONETIME ONE Stop: 03/26/21 07:57 Last Admin: 03/26/21 08:22 Dose: 40 meq Documented by: - Exam Quality Assessment: Supplemental Oxygen (Baseline oxygen requirement, 2 L) General: Alert, Oriented Lungs: Clear to Auscultation Cardiovascular: Regular Rate, Irregular Rhythm (Atrial fibrillation) GI/Abdominal Exam: Soft, Non-Tender, No Distention Extremities: No Pedal Edema Psy/Mental Status: Alert - Patient Data Lab Results Last 24 hrs: Laboratory Results - last 24 hr 03/25/21 03/25/21 03/25/21 Range/Units 15:20 15:21 15:21 WBC 10.82 (4.0-11.0) K/uL RBC 5.93 H (4.30-5.90) M/uL Hgb 15.4 (12.0-16.0) g/dL Hct 49.2 H (36.0-46.0) % MCV 83.0 (80.0-98.0) fL MCH 26.0 L (27.0-32.0) pg MCHC 31.3 (31.0-37.0) g/dL RDW Std Deviation 45.7 (28.0-62.0) fl RDW Coeff of Isaias 15 (11.0-15.0) % Plt Count 167 (150-400) K/uL MPV 11.40 (7.40-12.00) fL Neut % (Auto) 75.2 (48.0-80.0) % Lymph % (Auto) 15.0 L (16.0-40.0) % [place] % (Auto) 7.9 (0.0-15.0) % Eos % (Auto) 1.8 (0.0-7.0) % Baso % (Auto) 0.1 (0.0-1.5) % Neut # (Auto) 8.1 H (1.4-5.7) K/uL Lymph # (Auto) 1.6 (0.6-2.4) K/uL [place] # (Auto) 0.9 H (0.0-0.8) K/uL Eos # (Auto) 0.2 (0.0-0.7) K/uL Baso # (Auto) 0.0 (0.0-0.1) K/uL Nucleated RBC % 0.0 /100WBC Nucleated RBCs # 0 K/uL INR Sodium 136 (136-145) mmol/L Potassium 3.9 (3.5-5.1) mmol/L Chloride 93 L (98-107) mmol/L Carbon Dioxide 32.4 H (21.0-32.0) mmol/L BUN 15 (7.0-18.0) mg/dL Creatinine 1.4 H (0.6-1.0) mg/dL Est Cr Clr Drug Dosing 30.49 mL/min Estimated GFR (MDRD) 37.1 ml/min Glucose 159 H (74-106) mg/dL POC Glucose (70-99) mg/dL Lactic Acid (0.4-2.0) mmol/L Calcium 8.4 L (8.5-10.1) mg/dL Magnesium (1.8-2.4) mg/dL Total Bilirubin 0.8 (0.2-1.0) mg/dL AST 31 (15-37) IU/L ALT 28 (14-63) IU/L Alkaline Phosphatase 70 (46-116) U/L Troponin I (0.000-0.056) ng/mL B-Natriuretic Peptide (<100) PG/ML Total Protein 8.5 H (6.4-8.2) g/dL Albumin 3.2 L (3.4-5.0) g/dL Globulin 5.3 H (2.6-4.0) g/dL Albumin/Globulin Ratio 0.6 L (0.9-1.6) SARS-CoV-2 RNA ([facility]T) POSITIVE H (NEGATIVE) 03/25/21 03/25/21 03/25/21 Range/Units 15:21 15:21 15:21 WBC (4.0-11.0) K/uL RBC (4.30-5.90) M/uL Hgb (12.0-16.0) g/dL Hct (36.0-46.0) % MCV (80.0-98.0) fL MCH (27.0-32.0) pg MCHC (31.0-37.0) g/dL RDW Std Deviation (28.0-62.0) fl RDW Coeff of Isaias (11.0-15.0) % Plt Count (150-400) K/uL MPV (7.40-12.00) fL Neut % (Auto) (48.0-80.0) % Lymph % (Auto) (16.0-40.0) % [place] % (Auto) (0.0-15.0) % Eos % (Auto) (0.0-7.0) % Baso % (Auto) (0.0-1.5) % Neut # (Auto) (1.4-5.7) K/uL Lymph # (Auto) (0.6-2.4) K/uL [place] # (Auto) (0.0-0.8) K/uL Eos # (Auto) (0.0-0.7) K/uL Baso # (Auto) (0.0-0.1) K/uL Nucleated RBC % /100WBC Nucleated RBCs # K/uL INR 1.05 Sodium (136-145) mmol/L Potassium (3.5-5.1) mmol/L Chloride (98-107) mmol/L Carbon Dioxide (21.0-32.0) mmol/L BUN (7.0-18.0) mg/dL Creatinine (0.6-1.0) mg/dL Est Cr Clr Drug Dosing mL/min Estimated GFR (MDRD) ml/min Glucose (74-106) mg/dL POC Glucose (70-99) mg/dL Lactic Acid 3.2 H* (0.4-2.0) mmol/L Calcium (8.5-10.1) mg/dL Magnesium (1.8-2.4) mg/dL Total Bilirubin (0.2-1.0) mg/dL AST (15-37) IU/L ALT (14-63) IU/L Alkaline Phosphatase (46-116) U/L Troponin I < 0.050 (0.000-0.056) ng/mL B-Natriuretic Peptide (<100) PG/ML Total Protein (6.4-8.2) g/dL Albumin (3.4-5.0) g/dL Globulin (2.6-4.0) g/dL Albumin/Globulin Ratio (0.9-1.6) SARS-CoV-2 RNA ([facility]) (NEGATIVE) 03/25/21 03/25/21 03/25/21 Range/Units 15:31 20:24 20:24 WBC (4.0-11.0) K/uL RBC (4.30-5.90) M/uL Hgb (12.0-16.0) g/dL Hct (36.0-46.0) % MCV (80.0-98.0) fL MCH (27.0-32.0) pg MCHC (31.0-37.0) g/dL RDW Std Deviation (28.0-62.0) fl RDW Coeff of Isaias (11.0-15.0) % Plt Count (150-400) K/uL MPV (7.40-12.00) fL Neut % (Auto) (48.0-80.0) % Lymph % (Auto) (16.0-40.0) % [place] % (Auto) (0.0-15.0) % Eos % (Auto) (0.0-7.0) % Baso % (Auto) (0.0-1.5) % Neut # (Auto) (1.4-5.7) K/uL Lymph # (Auto) (0.6-2.4) K/uL [place] # (Auto) (0.0-0.8) K/uL Eos # (Auto) (0.0-0.7) K/uL Baso # (Auto) (0.0-0.1) K/uL Nucleated RBC % /100WBC Nucleated RBCs # K/uL INR Sodium (136-145) mmol/L Potassium (3.5-5.1) mmol/L Chloride (98-107) mmol/L Carbon Dioxide (21.0-32.0) mmol/L BUN (7.0-18.0) mg/dL Creatinine (0.6-1.0) mg/dL Est Cr Clr Drug Dosing mL/min Estimated GFR (MDRD) ml/min Glucose (74-106) mg/dL POC Glucose (70-99) mg/dL Lactic Acid 1.3 (0.4-2.0) mmol/L Calcium (8.5-10.1) mg/dL Magnesium (1.8-2.4) mg/dL Total Bilirubin (0.2-1.0) mg/dL AST (15-37) IU/L ALT (14-63) IU/L Alkaline Phosphatase (46-116) U/L Troponin I < 0.050 (0.000-0.056) ng/mL B-Natriuretic Peptide 39 (<100) PG/ML Total Protein (6.4-8.2) g/dL Albumin (3.4-5.0) g/dL Globulin (2.6-4.0) g/dL Albumin/Globulin Ratio (0.9-1.6) SARS-CoV-2 RNA ([facility]) (NEGATIVE) 03/26/21 03/26/21 03/26/21 Range/Units 01:00 05:10 05:10 WBC 6.42 (4.0-11.0) K/uL RBC 4.94 (4.30-5.90) M/uL Hgb 12.7 (12.0-16.0) g/dL Hct 41.1 (36.0-46.0) % MCV 83.2 (80.0-98.0) fL MCH 25.7 L (27.0-32.0) pg MCHC 30.9 L (31.0-37.0) g/dL RDW Std Deviation 46.0 (28.0-62.0) fl RDW Coeff of Isaias 15 (11.0-15.0) % Plt Count 164 (150-400) K/uL MPV 11.00 (7.40-12.00) fL Neut % (Auto) 63.7 (48.0-80.0) % Lymph % (Auto) 21.8 (16.0-40.0) % [place] % (Auto) 10.1 (0.0-15.0) % Eos % (Auto) 4.2 (0.0-7.0) % Baso % (Auto) 0.2 (0.0-1.5) % Neut # (Auto) 4.1 (1.4-5.7) K/uL Lymph # (Auto) 1.4 (0.6-2.4) K/uL [place] # (Auto) 0.7 (0.0-0.8) K/uL Eos # (Auto) 0.3 (0.0-0.7) K/uL Baso # (Auto) 0.0 (0.0-0.1) K/uL Nucleated RBC % 0.0 /100WBC Nucleated RBCs # 0 K/uL INR Sodium 139 (136-145) mmol/L Potassium 3.2 L (3.5-5.1) mmol/L Chloride 98 (98-107) mmol/L Carbon Dioxide 32.3 H (21.0-32.0) mmol/L BUN 11 (7.0-18.0) mg/dL Creatinine 0.9 (0.6-1.0) mg/dL Est Cr Clr Drug Dosing 47.43 mL/min Estimated GFR (MDRD) > 60.0 ml/min Glucose 125 H (74-106) mg/dL POC Glucose (70-99) mg/dL Lactic Acid (0.4-2.0) mmol/L Calcium 7.6 L (8.5-10.1) mg/dL Magnesium 1.7 L (1.8-2.4) mg/dL Total Bilirubin (0.2-1.0) mg/dL AST (15-37) IU/L ALT (14-63) IU/L Alkaline Phosphatase (46-116) U/L Troponin I < 0.050 (0.000-0.056) ng/mL B-Natriuretic Peptide (<100) PG/ML Total Protein (6.4-8.2) g/dL Albumin (3.4-5.0) g/dL Globulin (2.6-4.0) g/dL Albumin/Globulin Ratio (0.9-1.6) SARS-CoV-2 RNA ([facility]) (NEGATIVE) 03/26/21 03/26/21 Range/Units 08:20 11:41 WBC (4.0-11.0) K/uL RBC (4.30-5.90) M/uL Hgb (12.0-16.0) g/dL Hct (36.0-46.0) % MCV (80.0-98.0) fL MCH (27.0-32.0) pg MCHC (31.0-37.0) g/dL RDW Std Deviation (28.0-62.0) fl RDW Coeff of Isaias (11.0-15.0) % Plt Count (150-400) K/uL MPV (7.40-12.00) fL Neut % (Auto) (48.0-80.0) % Lymph % (Auto) (16.0-40.0) % [place] % (Auto) (0.0-15.0) % Eos % (Auto) (0.0-7.0) % Baso % (Auto) (0.0-1.5) % Neut # (Auto) (1.4-5.7) K/uL Lymph # (Auto) (0.6-2.4) K/uL [place] # (Auto) (0.0-0.8) K/uL Eos # (Auto) (0.0-0.7) K/uL Baso # (Auto) (0.0-0.1) K/uL Nucleated RBC % /100WBC Nucleated RBCs # K/uL INR Sodium (136-145) mmol/L Potassium (3.5-5.1) mmol/L Chloride (98-107) mmol/L Carbon Dioxide (21.0-32.0) mmol/L BUN (7.0-18.0) mg/dL Creatinine (0.6-1.0) mg/dL Est Cr Clr Drug Dosing mL/min Estimated GFR (MDRD) ml/min Glucose (74-106) mg/dL POC Glucose 134 H 125 H (70-99) mg/dL Lactic Acid (0.4-2.0) mmol/L Calcium (8.5-10.1) mg/dL Magnesium (1.8-2.4) mg/dL Total Bilirubin (0.2-1.0) mg/dL AST (15-37) IU/L ALT (14-63) IU/L Alkaline Phosphatase (46-116) U/L Troponin I (0.000-0.056) ng/mL B-Natriuretic Peptide (<100) PG/ML Total Protein (6.4-8.2) g/dL Albumin (3.4-5.0) g/dL Globulin (2.6-4.0) g/dL Albumin/Globulin Ratio (0.9-1.6) SARS-CoV-2 RNA ([facility]) (NEGATIVE) Result Diagrams: 03/26/21 05:10 03/26/21 05:10 Sepsis Event Note - Evaluation Sepsis Screening Result: Possible Sepsis Risk - Focused Exam Vital Signs: Vital Signs Temp Pulse Pulse Resp BP BP Pulse Ox 03/26/21 11:45 100.7 F H 85 18 133/50 L 93 L 03/26/21 10:30 104 H 112/64 03/26/21 10:08 104 H 112/64 03/26/21 08:45 109/61 03/26/21 07:58 98.3 F 90 18 103/55 L 94 L 03/26/21 03:00 97.3 F 82 17 142/61 H 94 L - Problem List & Annotations (1) Acute kidney injury SNOMED Code(s): 88705383, 22515104 Code(s): N17.9 - ACUTE KIDNEY FAILURE, UNSPECIFIED Status: Acute Current Visit: Yes (2) CHF (congestive heart failure) SNOMED Code(s): 11938127 Code(s): I50.9 - HEART FAILURE, UNSPECIFIED Status: Acute Current Visit: No (3) COPD (chronic obstructive pulmonary disease) SNOMED Code(s): 09455323 Code(s): J44.9 - CHRONIC OBSTRUCTIVE PULMONARY DISEASE, UNSPECIFIED Status: Acute Current Visit: No (4) COVID-19 SNOMED Code(s): 809814879 Code(s): U07.1 - COVID-19 Status: Acute Current Visit: No (5) Diabetes SNOMED Code(s): 84312604 Code(s): E11.9 - TYPE 2 DIABETES MELLITUS WITHOUT COMPLICATIONS Status: Acute Current Visit: No (6) Hypothyroidism SNOMED Code(s): 30565126 Code(s): E03.9 - HYPOTHYROIDISM, UNSPECIFIED Status: Acute Current Visit: No (7) Obesity hypoventilation syndrome SNOMED Code(s): 50434298, 442622594 Code(s): E66.2 - MORBID (SEVERE) OBESITY WITH ALVEOLAR HYPOVENTILATION Status: Acute Current Visit: No - Problem List Review Problem List Initiated/Reviewed/Updated: Yes - My Orders Last 24 Hours: My Active Orders 03/25/21 Dinner ADA Diabetic [[place] [place] [employer] Diet] [DIET] 03/25/21 20:02 Dextrose 50% in Water 50 ml IVPUSH ASDIRECTED PRN Glucagon,Human Recombinant [GlucaGen] 1 mg IM ASDIRECTED PRN 03/25/21 20:03 Ondansetron [Zofran] 4 mg IVPUSH Q4H PRN 03/25/21 20:04 Oxygen Therapy [RC] PRN VTE/DVT Education [RC] PER UNIT ROUTINE Vital Signs [RC] Q4H Resuscitation Status Routine 03/25/21 20:06 Oxygen Therapy [RC] PRN VTE/DVT Education [RC] PER UNIT ROUTINE Vital Signs [RC] Q4H Acetaminophen [TylenoL] 650 mg PO Q4H PRN 03/25/21 20:08 Antiembolic Devices [RC] PER UNIT ROUTINE SCD [Sequential Compression Device] [OM.PC] Routine 03/25/21 20:41 hydrOXYzine HCL [Atarax] 25 mg PO Q8H PRN 03/25/21 21:00 Metoprolol Tartrate [Lopressor] 25 mg PO Q12HR Pantoprazole [ProTONIX IV] 40 mg Sodium Chloride 0.9% [Normal Saline] 10 ml IV Q24H 03/26/21 07:30 Insulin Aspart [NovoLOG] See Protocol SUBCUT TIDAC Levothyroxine 150 mcg PO ACBREAKFAST Levothyroxine 25 mcg PO ACBREAKFAST 03/26/21 09:00 Aspirin 81 mg PO DAILY - Plan Plan:: ACS rule outtroponin x 3 negative, EKG interpretation at admission revealed atrial fibrillation AKIresolved, BUN 11, creatinine 0.9. Encourage oral fluid intake A. fibcurrently controlled on metoprolol 25 mg twice daily. (Patient was discharged home at prior admission on 120 mg Cardizem due to episodes of RVR. Patient states she has not taken Cardizem since discharge. Will add Cardizem if necessary based on patient's heart rate). [id number] mcg levothyroxine Diabetessliding scale insulin low, ADA Zofran, Protonix, SCDs (per documentation of patient's prior admission on 03-18-21 patient reports history of peptic ulcer disease and history of GI bleed. Patient remained on SCDs during her 4-day admission course at that time) Patient was treated with remdesivir, dexamethasone at prior admission dated 03-18-21.
[2021-03-26] MEDS ORDERED: Haloperidol Lactate 5 MG/ML SDV IM ONE (14:16)
[2021-03-26] MEDS: Metoclopramide 10 MG/2 ML SDV IVPUSH PRN ×2 (14:51→20:42)
[2021-03-26] MEDS: Codeine/guaiFENesin 10-100 MG/5 ML Syrup 5 ML Cup PO PRN ×2 (15:47→21:44)
[2021-03-26] MEDS: Pantoprazole 40 MG in Sodium Chloride 0.9% 10 ML IV SCH (20:43)
[2021-03-26] MEDS: Acetaminophen 325 MG Tab PO PRN (21:43)
[2021-03-27] MEDS: Levothyroxine 150 MCG Tab PO SCH (06:36)
[2021-03-27] MEDS: Levothyroxine 25 MCG Tab PO SCH (06:36)
[2021-03-27 06:55] LABS: BLOOD UREA NITROGEN,BUN 6 mg/dL (7.0-18.0); CARBON DIOXIDE,CO2 34.8 mmol/L (21.0-32.0); CHLORIDE,CL 100 mmol/L (98-107); GLUCOSE RANDOM 119 mg/dL (74-106); POTASSIUM,K 3.5 mmol/L (3.5-5.1); SODIUM,NA 139 mmol/L (136-145)
[2021-03-27] MEDS: Insulin Aspart 100 Units/ML 3 ML Pen SUBCUT SCH ×3 (07:24→16:43)
[2021-03-27] MEDS: Aspirin 81 MG Tab.Chew PO SCH (09:37)
[2021-03-27] MEDS: Metoprolol Tartrate 25 MG Tab PO SCH ×2 (09:37→20:47)
[2021-03-27] MEDS: Codeine/guaiFENesin 10-100 MG/5 ML Syrup 5 ML Cup PO PRN ×2 (09:38→20:48)
[2021-03-27] MEDS: predniSONE 20 MG Tab PO SCH (11:41)
--- NOTE | 2021-03-27 15:09 | PCM.PN ---
- General Info Date of Service: 03/27/21 Subjective Update: The patient is a 70-year-old female, on day 3 of service, with a significant past medical history of CHF, COPD, prior pulmonary embolism, hypertension, GERD, PUD, diabetes mellitus, anxiety, depression, [place], obesity hypoventilation syndrome, and atrial fibrillation, she was admitted to the medical floor due to acute kidney injury. Even though her acute kidney injury has resolved the patient continues to feel fatigued and nauseous. She admits that she has body aches around her ribs and joints of the lower extremities. Her magnesium was decreased yesterday for which she received a 2 g IV loading dose of magnesium sulfate, today her levels are in the normal range. With respect to her atrial fibrillation, the patient is on metoprolol at home and on prior hospitalization was discharged on Cardizem, however she has not taken the medication and if her heart rate stays in the normal range she will not need it. A urinalysis was ordered today to check if that may be a reason why the patient continues to feel ill, however it came back without any abnormalities. We will hold the patient for one more day and if her lab values continue to be in the normal range, we will discharge her tomorrow. The patient has no other concerns at this time. - Review of Systems General: Reports: Fatigue. Denies: Fever, Chills, Night Sweats HEENT: Denies: Headaches Pulmonary: Denies: Shortness of Breath, Cough Cardiovascular: Denies: Chest Pain, Palpitations Gastrointestinal: Reports: Nausea. Denies: Abdominal Pain, Constipation, Diarrhea Genitourinary: Denies: Dysuria - Patient Data Vitals - Most Recent: Last Vital Signs Temp 98.0 F 03/27/21 11:46 Pulse 75 03/27/21 11:46 Resp 21 H 03/27/21 11:46 BP 142/49 H 03/27/21 11:46 Pulse Ox 92 L 03/27/21 11:46 Weight - Most Recent: 251 lb 9.6 oz I&O - Last 24 Hours: Intake & Output 03/27/21 03/27/21 03/27/21 06:59 14:59 22:59 Intake Total 750 Output Total 800 725 Balance -50 -725 Lab Results Last 24 Hours: Laboratory Results - last 24 hr 03/26/21 03/27/2121 Range/Units 18:49 05:10 05:10 WBC 4.64 (4.0-11.0) K/uL RBC 4.43 (4.30-5.90) M/uL Hgb 11.3 L (12.0-16.0) g/dL Hct 37.6 (36.0-46.0) % MCV 84.9 (80.0-98.0) fL MCH 25.5 L (27.0-32.0) pg MCHC 30.1 L (31.0-37.0) g/dL RDW Std Deviation 47.3 (28.0-62.0) fl RDW Coeff of Isaias 15 (11.0-15.0) % Plt Count 144 L (150-400) K/uL MPV 10.70 (7.40-12.00) fL Neut % (Auto) 60.8 (48.0-80.0) % Lymph % (Auto) 21.8 (16.0-40.0) % Martin % (Auto) 15.5 H (0.0-15.0) % Eos % (Auto) 1.9 (0.0-7.0) % Baso % (Auto) 0.0 (0.0-1.5) % Neut # (Auto) 2.8 (1.4-5.7) K/uL Lymph # (Auto) 1.0 (0.6-2.4) K/uL Martin # (Auto) 0.7 (0.0-0.8) K/uL Eos # (Auto) 0.1 (0.0-0.7) K/uL Baso # (Auto) 0.0 (0.0-0.1) K/uL Nucleated RBC % 0.0 /100WBC Nucleated RBCs # 0 K/uL Sodium 139 (136-145) mmol/L Potassium 3.5 (3.5-5.1) mmol/L Chloride 100 (98-107) mmol/L Carbon Dioxide 34.8 H (21.0-32.0) mmol/L BUN 6 L (7.0-18.0) mg/dL Creatinine 0.7 (0.6-1.0) mg/dL Est Cr Clr Drug Dosing 60.98 mL/min Estimated GFR (MDRD) > 60.0 ml/min Glucose 119 H (74-106) mg/dL POC Glucose 119 H (70-99) mg/dL Calcium 7.3 L (8.5-10.1) mg/dL Magnesium (1.8-2.4) mg/dL Urine Color Urine Appearance Urine pH (5.0-8.0) Ur Specific Krum (1.001-1.035) Urine Protein (NEGATIVE) mg/dL Urine Glucose (UA) (NEGATIVE) mg/dL Urine Ketones (NEGATIVE) mg/dL Urine Occult Blood (NEGATIVE) Urine Nitrite (NEGATIVE) Urine Bilirubin (NEGATIVE) Urine Urobilinogen (<2.0) EU/dL Ur Leukocyte Esterase (NEGATIVE) 03/27/21 03/27/21 03/27/21 Range/Units 05:10 06:34 11:43 WBC (4.0-11.0) K/uL RBC (4.30-5.90) M/uL Hgb (12.0-16.0) g/dL Hct (36.0-46.0) % MCV (80.0-98.0) fL MCH (27.0-32.0) pg MCHC (31.0-37.0) g/dL RDW Std Deviation (28.0-62.0) fl RDW Coeff of Isaias (11.0-15.0) % Plt Count (150-400) K/uL MPV (7.40-12.00) fL Neut % (Auto) (48.0-80.0) % Lymph % (Auto) (16.0-40.0) % Martin % (Auto) (0.0-15.0) % Eos % (Auto) (0.0-7.0) % Baso % (Auto) (0.0-1.5) % Neut # (Auto) (1.4-5.7) K/uL Lymph # (Auto) (0.6-2.4) K/uL Martin # (Auto) (0.0-0.8) K/uL Eos # (Auto) (0.0-0.7) K/uL Baso # (Auto) (0.0-0.1) K/uL Nucleated RBC % /100WBC Nucleated RBCs # K/uL Sodium (136-145) mmol/L Potassium (3.5-5.1) mmol/L Chloride (98-107) mmol/L Carbon Dioxide (21.0-32.0) mmol/L BUN (7.0-18.0) mg/dL Creatinine (0.6-1.0) mg/dL Est Cr Clr Drug Dosing mL/min Estimated GFR (MDRD) ml/min Glucose (74-106) mg/dL POC Glucose 105 H 179 H (70-99) mg/dL Calcium (8.5-10.1) mg/dL Magnesium 2.0 (1.8-2.4) mg/dL Urine Color Urine Appearance Urine pH (5.0-8.0) Ur Specific Krum (1.001-1.035) Urine Protein (NEGATIVE) mg/dL Urine Glucose (UA) (NEGATIVE) mg/dL Urine Ketones (NEGATIVE) mg/dL Urine Occult Blood (NEGATIVE) Urine Nitrite (NEGATIVE) Urine Bilirubin (NEGATIVE) Urine Urobilinogen (<2.0) EU/dL Ur Leukocyte Esterase (NEGATIVE) 03/27/21 Range/Units 13:50 WBC (4.0-11.0) K/uL RBC (4.30-5.90) M/uL Hgb (12.0-16.0) g/dL Hct (36.0-46.0) % MCV (80.0-98.0) fL MCH (27.0-32.0) pg MCHC (31.0-37.0) g/dL RDW Std Deviation (28.0-62.0) fl RDW Coeff of Isaias (11.0-15.0) % Plt Count (150-400) K/uL MPV (7.40-12.00) fL Neut % (Auto) (48.0-80.0) % Lymph % (Auto) (16.0-40.0) % Martin % (Auto) (0.0-15.0) % Eos % (Auto) (0.0-7.0) % Baso % (Auto) (0.0-1.5) % Neut # (Auto) (1.4-5.7) K/uL Lymph # (Auto) (0.6-2.4) K/uL Martin # (Auto) (0.0-0.8) K/uL Eos # (Auto) (0.0-0.7) K/uL Baso # (Auto) (0.0-0.1) K/uL Nucleated RBC % /100WBC Nucleated RBCs # K/uL Sodium (136-145) mmol/L Potassium (3.5-5.1) mmol/L Chloride (98-107) mmol/L Carbon Dioxide (21.0-32.0) mmol/L BUN (7.0-18.0) mg/dL Creatinine (0.6-1.0) mg/dL Est Cr Clr Drug Dosing mL/min Estimated GFR (MDRD) ml/min Glucose (74-106) mg/dL POC Glucose (70-99) mg/dL Calcium (8.5-10.1) mg/dL Magnesium (1.8-2.4) mg/dL Urine Color YELLOW Urine Appearance CLEAR Urine pH 7.0 (5.0-8.0) Ur Specific Krum 1.010 (1.001-1.035) Urine Protein NEGATIVE (NEGATIVE) mg/dL Urine Glucose (UA) NEGATIVE (NEGATIVE) mg/dL Urine Ketones NEGATIVE (NEGATIVE) mg/dL Urine Occult Blood NEGATIVE (NEGATIVE) Urine Nitrite NEGATIVE (NEGATIVE) Urine Bilirubin NEGATIVE (NEGATIVE) Urine Urobilinogen 1.0 (<2.0) EU/dL Ur Leukocyte Esterase NEGATIVE (NEGATIVE) Med Orders - Current: Current Medications Acetaminophen (Acetaminophen 325 Mg Tab) 650 mg PO Q4H PRN PRN Reason: Pain (Mild 1-3)/fever Last Admin: 03/26/21 21:43 Dose: 650 mg Documented by: Aspirin (Aspirin 81 Mg Tab.Chew) 81 mg PO DAILY CONCEPCIÓN Last Admin: 03/27/21 09:37 Dose: 81 mg Documented by: Dextrose/Water (50% Dextrose In Water 50 Ml Syringe) 50 ml IVPUSH ASDIRECTED PRN PRN Reason: Hypoglycemia Glucagon (Glucagon,Human Recombinant 1 Mg Vial) 1 mg IM ASDIRECTED PRN PRN Reason: Hypoglycemia Guaifenesin/Codeine Phosphate (Codeine/Guaifenesin 10-100 Mg/5 Ml Syrup 5 Ml Cup) 5 ml PO Q6H PRN PRN Reason: Cough Last Admin: 03/27/21 09:38 Dose: 5 ml Documented by: Hydroxyzine HCl (Hydroxyzine Hcl 25 Mg Tab) 25 mg PO Q8H PRN PRN Reason: Dizziness Pantoprazole Sodium 40 mg/ (Sodium Chloride) 10 mls @ 300 mls/hr IV Q24H [facility] Last Admin: 03/26/21 20:43 Dose: 300 mls/hr Documented by: Insulin Aspart (Insulin Aspart 100 Units/Ml 3 Ml Pen) 0 unit SUBCUT TIDAC [facility]; Protocol Last Admin: 03/27/21 11:43 Dose: 1 units Documented by: Levothyroxine Sodium (Levothyroxine 150 Mcg Tab) 150 mcg PO ACBREAKFAST [facility] Last Admin: 03/27/21 06:36 Dose: 150 mcg Documented by: Levothyroxine Sodium (Levothyroxine 25 Mcg Tab) 25 mcg PO ACBREAKFAST [facility] Last Admin: 03/27/21 06:36 Dose: 25 mcg Documented by: Melatonin (Melatonin 3 Mg Tab) 6 mg PO BEDTIME PRN PRN Reason: Insomnia Metoclopramide HCl (Metoclopramide 10 Mg/2 Ml Sdv) 5 mg IVPUSH Q4H PRN PRN Reason: Nausea/Vomiting Last Admin: 03/26/21 20:42 Dose: 5 mg Documented by: Metoprolol Tartrate (Metoprolol Tartrate 25 Mg Tab) 25 mg PO Q12HR [facility] Last Admin: 03/27/21 09:37 Dose: 25 mg Documented by: Prednisone (Prednisone 20 Mg Tab) 40 mg PO WITHBREAKFAST [facility] Last Admin: 03/27/21 11:41 Dose: 40 mg Documented by: Discontinued Medications Aspirin (Aspirin 81 Mg Tab.Chew) 324 mg PO ONETIME ONE Stop: 03/25/21 15:13 Last Admin: 03/25/21 15:17 Dose: 324 mg Documented by: Al Hydroxide/Mg Hydroxide 15 (ml/ Lidocaine HCl 5 ml) 0 ml PO ONETIME ONE Stop: 03/25/21 15:43 Last Admin: 03/25/21 15:51 Dose: 1 each Documented by: Enoxaparin Sodium (Enoxaparin 40 Mg/0.4 Ml Syringe) 40 mg SUBCUT Q24H [facility] Haloperidol Lactate (Haloperidol Lactate 5 Mg/Ml Sdv) 1 mg IM ONETIME ONE Stop: 03/26/21 14:17 Last Admin: 03/26/21 15:44 Dose: 1 mg Documented by: Lactated Ringer's (Ringers, Lactated) 1,000 mls @ 500 mls/hr IV ASDIRECTED [place]N Last Admin: 03/25/21 16:18 Dose: 500 mls/hr Documented by: Lactated Ringer's (Ringers, Lactated) 1,000 mls @ 100 mls/hr IV ASDIRECTED [place]N Stop: 03/26/21 06:59 Last Admin: 03/25/21 21:42 Dose: 125 mls/hr Documented by: Magnesium Sulfate 2 gm/ Premix 50 mls @ 12.5 mls/hr IV ONETIME ONE Stop: 03/26/21 11:55 Last Admin: 03/26/21 08:22 Dose: 12.5 mls/hr Documented by: Ondansetron HCl (Ondansetron 4 Mg/2 Ml Sdv) 4 mg IVPUSH Q4H PRN PRN Reason: Nausea/Vomiting Last Admin: 03/26/21 10:07 Dose: 4 mg Documented by: Potassium Chloride (Potassium Chloride 20 Meq Tab.Er) 40 meq PO ONETIME ONE Stop: 03/26/21 07:57 Last Admin: 03/26/21 08:22 Dose: 40 meq Documented by: - Exam General: Alert, Oriented, Cooperative HEENT: Other (Dry mucous membranes) Neck: Trachea Midline Lungs: Clear to Auscultation, Normal Respiratory Effort Cardiovascular: Regular Rate, No Murmurs GI/Abdominal Exam: Normal Bowel Sounds, Soft, Non-Tender Extremities: Other (SCDs in place bilaterally) - Patient Data Lab Results Last 24 hrs: Laboratory Results - last 24 hr 03/26/21 03/27/21 03/27/21 Range/Units 18:49 05:10 05:10 WBC 4.64 (4.0-11.0) K/uL RBC 4.43 (4.30-5.90) M/uL Hgb 11.3 L (12.0-16.0) g/dL Hct 37.6 (36.0-46.0) % MCV 84.9 (80.0-98.0) fL MCH 25.5 L (27.0-32.0) pg MCHC 30.1 L (31.0-37.0) g/dL RDW Std Deviation 47.3 (28.0-62.0) fl RDW Coeff of Isaias 15 (11.0-15.0) % Plt Count 144 L (150-400) K/uL MPV 10.70 (7.40-12.00) fL Neut % (Auto) 60.8 (48.0-80.0) % Lymph % (Auto) 21.8 (16.0-40.0) % Martin % (Auto) 15.5 H (0.0-15.0) % Eos % (Auto) 1.9 (0.0-7.0) % Baso % (Auto) 0.0 (0.0-1.5) % Neut # (Auto) 2.8 (1.4-5.7) K/uL Lymph # (Auto) 1.0 (0.6-2.4) K/uL Martin # (Auto) 0.7 (0.0-0.8) K/uL Eos # (Auto) 0.1 (0.0-0.7) K/uL Baso # (Auto) 0.0 (0.0-0.1) K/uL Nucleated RBC % 0.0 /100WBC Nucleated RBCs # 0 K/uL Sodium 139 (136-145) mmol/L Potassium 3.5 (3.5-5.1) mmol/L Chloride 100 (98-107) mmol/L Carbon Dioxide 34.8 H (21.0-32.0) mmol/L BUN 6 L (7.0-18.0) mg/dL Creatinine 0.7 (0.6-1.0) mg/dL Est Cr Clr Drug Dosing 60.98 mL/min Estimated GFR (MDRD) > 60.0 ml/min Glucose 119 H (74-106) mg/dL POC Glucose 119 H (70-99) mg/dL Calcium 7.3 L (8.5-10.1) mg/dL Magnesium (1.8-2.4) mg/dL Urine Color Urine Appearance Urine pH (5.0-8.0) Ur Specific Krum (1.001-1.035) Urine Protein (NEGATIVE) mg/dL Urine Glucose (UA) (NEGATIVE) mg/dL Urine Ketones (NEGATIVE) mg/dL Urine Occult Blood (NEGATIVE) Urine Nitrite (NEGATIVE) Urine Bilirubin (NEGATIVE) Urine Urobilinogen (<2.0) EU/dL Ur Leukocyte Esterase (NEGATIVE) 1003/27/21 03/27/21 Range/Units 05:10 06:34 11:43 WBC (4.0-11.0) K/uL RBC (4.30-5.90) M/uL Hgb (12.0-16.0) g/dL Hct (36.0-46.0) % MCV (80.0-98.0) fL MCH (27.0-32.0) pg MCHC (31.0-37.0) g/dL RDW Std Deviation (28.0-62.0) fl RDW Coeff of Isaias (11.0-15.0) % Plt Count (150-400) K/uL MPV (7.40-12.00) fL Neut % (Auto) (48.0-80.0) % Lymph % (Auto) (16.0-40.0) % Martin % (Auto) (0.0-15.0) % Eos % (Auto) (0.0-7.0) % Baso % (Auto) (0.0-1.5) % Neut # (Auto) (1.4-5.7) K/uL Lymph # (Auto) (0.6-2.4) K/uL Martin # (Auto) (0.0-0.8) K/uL Eos # (Auto) (0.0-0.7) K/uL Baso # (Auto) (0.0-0.1) K/uL Nucleated RBC % /100WBC Nucleated RBCs # K/uL Sodium (136-145) mmol/L Potassium (3.5-5.1) mmol/L Chloride (98-107) mmol/L Carbon Dioxide (21.0-32.0) mmol/L BUN (7.0-18.0) mg/dL Creatinine (0.6-1.0) mg/dL Est Cr Clr Drug Dosing mL/min Estimated GFR (MDRD) ml/min Glucose (74-106) mg/dL POC Glucose 105 H 179 H (70-99) mg/dL Calcium (8.5-10.1) mg/dL Magnesium 2.0 (1.8-2.4) mg/dL Urine Color Urine Appearance Urine pH (5.0-8.0) Ur Specific Krum (1.001-1.035) Urine Protein (NEGATIVE) mg/dL Urine Glucose (UA) (NEGATIVE) mg/dL Urine Ketones (NEGATIVE) mg/dL Urine Occult Blood (NEGATIVE) Urine Nitrite (NEGATIVE) Urine Bilirubin (NEGATIVE) Urine Urobilinogen (<2.0) EU/dL Ur Leukocyte Esterase (NEGATIVE) 03/27/21 Range/Units 13:50 WBC (4.0-11.0) K/uL RBC (4.30-5.90) M/uL Hgb (12.0-16.0) g/dL Hct (36.0-46.0) % MCV (80.0-98.0) fL MCH (27.0-32.0) pg MCHC (31.0-37.0) g/dL RDW Std Deviation (28.0-62.0) fl RDW Coeff of Isaias (11.0-15.0) % Plt Count (150-400) K/uL MPV (7.40-12.00) fL Neut % (Auto) (48.0-80.0) % Lymph % (Auto) (16.0-40.0) % Martin % (Auto) (0.0-15.0) % Eos % (Auto) (0.0-7.0) % Baso % (Auto) (0.0-1.5) % Neut # (Auto) (1.4-5.7) K/uL Lymph # (Auto) (0.6-2.4) K/uL Martin # (Auto) (0.0-0.8) K/uL Eos # (Auto) (0.0-0.7) K/uL Baso # (Auto) (0.0-0.1) K/uL Nucleated RBC % /100WBC Nucleated RBCs # K/uL Sodium (136-145) mmol/L Potassium (3.5-5.1) mmol/L Chloride (98-107) mmol/L Carbon Dioxide (21.0-32.0) mmol/L BUN (7.0-18.0) mg/dL Creatinine (0.6-1.0) mg/dL Est Cr Clr Drug Dosing mL/min Estimated GFR (MDRD) ml/min Glucose (74-106) mg/dL POC Glucose (70-99) mg/dL Calcium (8.5-10.1) mg/dL Magnesium (1.8-2.4) mg/dL Urine Color YELLOW Urine Appearance CLEAR Urine pH 7.0 (5.0-8.0) Ur Specific Krum 1.010 (1.001-1.035) Urine Protein NEGATIVE (NEGATIVE) mg/dL Urine Glucose (UA) NEGATIVE (NEGATIVE) mg/dL Urine Ketones NEGATIVE (NEGATIVE) mg/dL Urine Occult Blood NEGATIVE (NEGATIVE) Urine Nitrite NEGATIVE (NEGATIVE) Urine Bilirubin NEGATIVE (NEGATIVE) Urine Urobilinogen 1.0 (<2.0) EU/dL Ur Leukocyte Esterase NEGATIVE (NEGATIVE) Result Diagrams: 03/27/21 05:10 03/27/21 05:10 Sepsis Event Note - Evaluation Sepsis Screening Result: No Definite Risk - Focused Exam Vital Signs: Vital Signs Temp Pulse Pulse Resp BP BP Pulse Ox 03/27/21 11:46 98.0 F 75 21 H 142/49 H 92 L 03/27/21 09:37 104 H 112/51 L 03/27/21 09:00 98.1 F 104 H 18 112/51 L 89 L 03/27/21 07:00 98.1 F 104 H 18 112/51 L 89 L 03/27/21 03:25 98.8 F 83 18 123/45 L 96 - Problem List & Annotations (1) Acute kidney injury SNOMED Code(s): 79589371, 40093640 Code(s): N17.9 - ACUTE KIDNEY FAILURE, UNSPECIFIED Status: Acute Current Visit: Yes (2) Atrial fibrillation with rapid ventricular response SNOMED Code(s): 942631601380457 Code(s): I48.91 - UNSPECIFIED ATRIAL FIBRILLATION Status: Acute Current Visit: No (3) Diabetes SNOMED Code(s): 39640055 Code(s): E11.9 - TYPE 2 DIABETES MELLITUS WITHOUT COMPLICATIONS Status: Acute Current Visit: No (4) Hypothyroidism SNOMED Code(s): 16928920 Code(s): E03.9 - HYPOTHYROIDISM, UNSPECIFIED Status: Acute Current Visit: No - Problem List Review Problem List Initiated/Reviewed/Updated: Yes - My Orders Last 24 Hours: My Active Orders 03/27/21 11:00 predniSONE 40 mg PO WITHBREAKFAST 03/27/21 21:00 Melatonin 6 mg PO BEDTIME PRN - Plan Plan:: 1. Acute kidney injury -The patient's DORINA has resolved with the current value of the creatinine being at 0.7 and BUN of 6 respectively -We will continue to encourage oral hydration at the hospital and at home as dehydration may be a cause of her DORINA -Urine analysis was done which came back within normal limits ruling out a urinary tract infection as a cause -For nausea the patient has Zofran on board 2. Atrial fibrillation -The patient is currently rate controlled with metoprolol 25 mg per oral route twice a day -Cardizem which was prescribed on previous hospitalization discharge has not been initiated -We will continue to hold the Cardizem as long as her heart rate is normal -SCDs in place because patient has a history of PUD and cannot be anticoagulated 3. Diabetes mellitus -We will continue the patient on insulin sliding scale for now as well as a diabetic diet -We will encourage the patient to control her blood sugars at home and stay compliant with medication 4. Hypothyroidism -Patient is on a collective dose of levothyroxine 175 mcg daily
[2021-03-27] MEDS: Pantoprazole 40 MG in Sodium Chloride 0.9% 10 ML IV SCH (20:48)
[2021-03-27] MEDS ORDERED: Melatonin 3 MG Tab PO PRN (21:00)
[2021-03-28] MEDS: Acetaminophen 325 MG Tab PO PRN (03:17)
[2021-03-28] MEDS: Levothyroxine 150 MCG Tab PO SCH (06:31)
[2021-03-28] MEDS: Levothyroxine 25 MCG Tab PO SCH (06:31)
[2021-03-28] MEDS: Insulin Aspart 100 Units/ML 3 ML Pen SUBCUT SCH (07:21)
[2021-03-28] MEDS: Aspirin 81 MG Tab.Chew PO SCH (08:51)
[2021-03-28] MEDS: Metoprolol Tartrate 25 MG Tab PO SCH (08:52)
[2021-03-28] MEDS: predniSONE 20 MG Tab PO SCH (08:52)
[2021-03-28 10:49] LABS: BLOOD UREA NITROGEN,BUN 6 mg/dL (7.0-18.0); CARBON DIOXIDE,CO2 27.3 mmol/L (21.0-32.0); CHLORIDE,CL 99 mmol/L (98-107); GLUCOSE RANDOM 151 mg/dL (74-106); POTASSIUM,K 4.1 mmol/L (3.5-5.1); SODIUM,NA 138 mmol/L (136-145)
--- NOTE | 2021-03-28 13:50 | PCM.DCSUM1 ---
<Dewey Maloney - Last Filed: 03/28/21 13:43> Discharge Summary - Hospital Course Free Text/Narrative:: The patient is a 70-year-old female, on day 4 of service, with significant past medical history of CHF, COPD, pulmonary embolism, hypertension, GERD, PUD, diabetes mellitus, anxiety, depression, MT, obesity hypoventilation syndrome, and recent hospitalization for COVID-19 pneumonia, who was admitted to the medical floor for acute kidney injury. During her hospital course, for her DORINA she was treated with fluids, and encouraged to increase her oral intake. Daily CMP's eventually revealed that her creatinine level had normalized, and her DORINA had resolved. While in hospital the patient was complaining of being fatigued, and slight suprapubic discomfort. We performed a urine analysis which came back within normal limits and did not show any increased leukocyte esterase or nitrites. While in hospital the patient was also treated for her past medical history of atrial fibrillation, diabetes mellitus, and hypothyroidism. She was given metoprolol 25 mg twice a day per oral route, Cardizem was held. She was also continued on aspirin 81 mg once a day. She was given a diabetic diet and was on NovoLog for diabetes mellitus. She was given levothyroxine 175mg a day for her hypothyroid. The patient also had hypomagnesemia while in hospital which was replenished with a 2 g IV loading dose. The patient also received prednisone 40 mg daily while in hospital, and will be discharged on a 5-day regimen of this medication to be taken at home. The patient is now ready to be discharged. - Discharge Data Discharge Date: 03/28/21 Discharge Disposition: Home, Self-Care 01 Condition: Good - Referral to Home Health Primary Care Physician: PCP None - Discharge Diagnosis/Problem(s) (1) Acute kidney injury SNOMED Code(s): 14930039, 51814225 ICD Code: N17.9 - ACUTE KIDNEY FAILURE, UNSPECIFIED Status: Acute (2) Atrial fibrillation with rapid ventricular response SNOMED Code(s): 600795876172796 ICD Code: I48.91 - UNSPECIFIED ATRIAL FIBRILLATION Status: Acute (3) Diabetes SNOMED Code(s): 55364437 ICD Code: E11.9 - TYPE 2 DIABETES MELLITUS WITHOUT COMPLICATIONS Status: Acute (4) Hypothyroidism SNOMED Code(s): 83956481 ICD Code: E03.9 - HYPOTHYROIDISM, UNSPECIFIED Status: Acute - Patient Instructions Diet: Diabetic Diet Activity: As Tolerated Showering/Bathing: May Shower Other/Special Instructions: -Be compliant with medications and take them at schedules times. -If you experience chest pain, palpitations, or respiratory difficulty, return to the hospital. -Take only Metoprolol for your Afib, stop Diltiazem - Discharge Plan *PRESCRIPTION DRUG MONITORING PROGRAM REVIEWED*: No *COPY OF PRESCRIPTION DRUG MONITORING REPORT IN PATIENT CASH: No Prescriptions/Med Rec: predniSONE 40 mg PO WITHBREAKFAST 5 Days #10 tablet Home Medications: Home Meds Aspirin 81 mg PO DAILY 03/18/21 [History] Diltiazem [Cardizem CD] 120 mg PO DAILY 03/18/21 [History] Fluticasone/Salmeterol [Advair 100-50] 1 puff INH BID 03/18/21 [History] Furosemide [Lasix] 40 mg PO BID 03/18/21 [History] Gabapentin [Neurontin] 600 mg PO BID 03/18/21 [History] Levothyroxine 175 mcg PO ACBREAKFAST 03/18/21 [History] Metoprolol Tartrate [Lopressor] 25 mg PO Q12HR 03/18/21 [History] Montelukast [Singulair] 10 mg PO DAILY 03/18/21 [History] Nystatin [Nystop] 30 gm TOP BID 03/18/21 [History] Omeprazole 20 mg PO BIDAC 03/18/21 [History] acetaZOLAMIDE [Diamox] 250 mg PO ASDIRECTED 03/18/21 [History] hydrOXYzine HCL [hydrOXYzine] 25 mg PO Q8H PRN #15 tab 03/18/21 [Rx] metFORMIN [Glucophage XR] 2,000 mg PO WITHDINNER 03/18/21 [History] traZODone HCl [Trazodone HCl] 150 mg PO BEDTIME 03/18/21 [History] Dextromethorphan/guaiFENesin [Robitussin DM] 10 ml PO Q4H PRN #120 ml 03/21/21 [Rx] predniSONE 40 mg PO WITHBREAKFAST 5 Days #10 tablet 03/28/21 [Rx] Patient Handouts: COVID-19, What You Should Know About COVID-19 to Protect Yourself and Others - CDC, Infection Prevention in the Home, Prednisone tablets Referrals: William Armstrong MD [Resident] - 04/08/21 1:45 pm - Discharge Summary/Plan Comment DC Time >30 min.: Yes Total # of Minutes for Discharge Time: 35 minutes - Review of Systems General: Reports: Fatigue. Denies: Fever, Night Sweats HEENT: Denies: Headaches, Sore Throat Pulmonary: Denies: Shortness of Breath, Pleuritic Chest Pain, Cough Cardiovascular: Denies: Chest Pain, Palpitations, Dyspnea on Exertion Gastrointestinal: Denies: Abdominal Pain, Constipation, Diarrhea Genitourinary: Denies: Dysuria - Patient Data Vitals - Most Recent: Last Vital Signs Temp 97.1 F 03/28/21 12:00 Pulse 70 03/28/21 12:00 Resp 15 03/28/21 12:00 BP 138/45 L 03/28/21 12:00 Pulse Ox 96 03/28/21 12:00 Weight - Most Recent: 114.124 kg I&O - Last 24 hours: Intake & Output 03/27/21 03/28/21 03/28/21 22:59 06:59 14:59 Intake Total 800 Output Total 750 Balance 50 Lab Results - Last 24 hrs: Laboratory Results - last 24 hr 03/27/21 03/27/21 03/28/21 Range/Units 13:50 16:26 06:30 WBC (4.0-11.0) K/uL RBC (4.30-5.90) M/uL Hgb (12.0-16.0) g/dL Hct (36.0-46.0) % MCV (80.0-98.0) fL MCH (27.0-32.0) pg MCHC (31.0-37.0) g/dL RDW Std Deviation (28.0-62.0) fl RDW Coeff of Isaias (11.0-15.0) % Plt Count (150-400) K/uL MPV (7.40-12.00) fL Neut % (Auto) (48.0-80.0) % Lymph % (Auto) (16.0-40.0) % Lassen % (Auto) (0.0-15.0) % Eos % (Auto) (0.0-7.0) % Baso % (Auto) (0.0-1.5) % Neut # (Auto) (1.4-5.7) K/uL Lymph # (Auto) (0.6-2.4) K/uL Lassen # (Auto) (0.0-0.8) K/uL Eos # (Auto) (0.0-0.7) K/uL Baso # (Auto) (0.0-0.1) K/uL Nucleated RBC % /100WBC Nucleated RBCs # K/uL Sodium (136-145) mmol/L Potassium (3.5-5.1) mmol/L Chloride (98-107) mmol/L Carbon Dioxide (21.0-32.0) mmol/L BUN (7.0-18.0) mg/dL Creatinine (0.6-1.0) mg/dL Est Cr Clr Drug Dosing mL/min Estimated GFR (MDRD) ml/min Glucose (74-106) mg/dL POC Glucose 259 H 110 H (70-99) mg/dL Calcium (8.5-10.1) mg/dL Total Bilirubin (0.2-1.0) mg/dL AST (15-37) IU/L ALT (14-63) IU/L Alkaline Phosphatase (46-116) U/L Total Protein (6.4-8.2) g/dL Albumin (3.4-5.0) g/dL Globulin (2.6-4.0) g/dL Albumin/Globulin Ratio (0.9-1.6) Urine Color YELLOW Urine Appearance CLEAR Urine pH 7.0 (5.0-8.0) Ur Specific Burton 1.010 (1.001-1.035) Urine Protein NEGATIVE (NEGATIVE) mg/dL Urine Glucose (UA) NEGATIVE (NEGATIVE) mg/dL Urine Ketones NEGATIVE (NEGATIVE) mg/dL Urine Occult Blood NEGATIVE (NEGATIVE) Urine Nitrite NEGATIVE (NEGATIVE) Urine Bilirubin NEGATIVE (NEGATIVE) Urine Urobilinogen 1.0 (<2.0) EU/dL Ur Leukocyte Esterase NEGATIVE (NEGATIVE) 03/28/21 03/28/21 Range/Units 09:30 09:30 WBC 4.20 (4.0-11.0) K/uL RBC 4.75 (4.30-5.90) M/uL Hgb 12.5 (12.0-16.0) g/dL Hct 39.7 (36.0-46.0) % MCV 83.6 (80.0-98.0) fL MCH 26.3 L (27.0-32.0) pg MCHC 31.5 (31.0-37.0) g/dL RDW Std Deviation 46.1 (28.0-62.0) fl RDW Coeff of Isaias 15 (11.0-15.0) % Plt Count 149 L (150-400) K/uL MPV 10.90 (7.40-12.00) fL Neut % (Auto) 67.7 (48.0-80.0) % Lymph % (Auto) 21.4 (16.0-40.0) % Lassen % (Auto) 10.5 (0.0-15.0) % Eos % (Auto) 0.2 (0.0-7.0) % Baso % (Auto) 0.2 (0.0-1.5) % Neut # (Auto) 2.8 (1.4-5.7) K/uL Lymph # (Auto) 0.9 (0.6-2.4) K/uL Lassen # (Auto) 0.4 (0.0-0.8) K/uL Eos # (Auto) 0.0 (0.0-0.7) K/uL Baso # (Auto) 0.0 (0.0-0.1) K/uL Nucleated RBC % 0.0 /100WBC Nucleated RBCs # 0 K/uL Sodium 138 (136-145) mmol/L Potassium 4.1 (3.5-5.1) mmol/L Chloride 99 (98-107) mmol/L Carbon Dioxide 27.3 (21.0-32.0) mmol/L BUN 6 L (7.0-18.0) mg/dL Creatinine 0.7 (0.6-1.0) mg/dL Est Cr Clr Drug Dosing 60.98 mL/min Estimated GFR (MDRD) > 60.0 ml/min Glucose 151 H (74-106) mg/dL POC Glucose (70-99) mg/dL Calcium 7.8 L (8.5-10.1) mg/dL Total Bilirubin 0.7 (0.2-1.0) mg/dL AST 24 (15-37) IU/L ALT 20 (14-63) IU/L Alkaline Phosphatase 53 (46-116) U/L Total Protein 6.4 (6.4-8.2) g/dL Albumin 2.5 L (3.4-5.0) g/dL Globulin 3.9 (2.6-4.0) g/dL Albumin/Globulin Ratio 0.6 L (0.9-1.6) Urine Color Urine Appearance Urine pH (5.0-8.0) Ur Specific Burton (1.001-1.035) Urine Protein (NEGATIVE) mg/dL Urine Glucose (UA) (NEGATIVE) mg/dL Urine Ketones (NEGATIVE) mg/dL Urine Occult Blood (NEGATIVE) Urine Nitrite (NEGATIVE) Urine Bilirubin (NEGATIVE) Urine Urobilinogen (<2.0) EU/dL Ur Leukocyte Esterase (NEGATIVE) Med Orders - Current: Current Medications Acetaminophen (Acetaminophen 325 Mg Tab) 650 mg PO Q4H PRN PRN Reason: Pain (Mild 1-3)/fever Last Admin: 03/28/21 03:17 Dose: 650 mg Documented by: Aspirin (Aspirin 81 Mg Tab.Chew) 81 mg PO DAILY [facility] Last Admin: 03/28/21 08:51 Dose: 81 mg Documented by: Dextrose/Water (50% Dextrose In Water 50 Ml Syringe) 50 ml IVPUSH ASDIRECTED PRN PRN Reason: Hypoglycemia Glucagon (Glucagon,Human Recombinant 1 Mg Vial) 1 mg IM ASDIRECTED PRN PRN Reason: Hypoglycemia Guaifenesin/Codeine Phosphate (Codeine/Guaifenesin 10-100 Mg/5 Ml Syrup 5 Ml Cup) 5 ml PO Q6H PRN PRN Reason: Cough Last Admin: 03/27/21 20:48 Dose: 5 ml Documented by: Hydroxyzine HCl (Hydroxyzine Hcl 25 Mg Tab) 25 mg PO Q8H PRN PRN Reason: Dizziness Pantoprazole Sodium 40 mg/ (Sodium Chloride) 10 mls @ 300 mls/hr IV Q24H [facility] Last Admin: 03/27/21 20:48 Dose: 300 mls/hr Documented by: Insulin Aspart (Insulin Aspart 100 Units/Ml 3 Ml Pen) 0 unit SUBCUT TIDAC [facility]; Protocol Last Admin: 03/28/21 07:21 Dose: Not Given Documented by: Levothyroxine Sodium (Levothyroxine 150 Mcg Tab) 150 mcg PO ACBREAKFAST [facility] Last Admin: 03/28/21 06:31 Dose: 150 mcg Documented by: Levothyroxine Sodium (Levothyroxine 25 Mcg Tab) 25 mcg PO ACBREAKFAST [facility] Last Admin: 03/28/21 06:31 Dose: 25 mcg Documented by: Melatonin (Melatonin 3 Mg Tab) 6 mg PO BEDTIME PRN PRN Reason: Insomnia Last Admin: 03/27/21 20:48 Dose: 6 mg Documented by: Metoclopramide HCl (Metoclopramide 10 Mg/2 Ml Sdv) 5 mg IVPUSH Q4H PRN PRN Reason: Nausea/Vomiting Last Admin: 03/26/21 20:42 Dose: 5 mg Documented by: Metoprolol Tartrate (Metoprolol Tartrate 25 Mg Tab) 25 mg PO Q12HR [facility] Last Admin: 03/28/21 08:52 Dose: 25 mg Documented by: Prednisone (Prednisone 20 Mg Tab) 40 mg PO WITHBREAKFAST [facility] Last Admin: 03/28/21 08:52 Dose: 40 mg Documented by: Discontinued Medications Aspirin (Aspirin 81 Mg Tab.Chew) 324 mg PO ONETIME ONE Stop: 03/25/21 15:13 Last Admin: 03/25/21 15:17 Dose: 324 mg Documented by: Al Hydroxide/Mg Hydroxide 15 (ml/ Lidocaine HCl 5 ml) 0 ml PO ONETIME ONE Stop: 03/25/21 15:43 Last Admin: 03/25/21 15:51 Dose: 1 each Documented by: Enoxaparin Sodium (Enoxaparin 40 Mg/0.4 Ml Syringe) 40 mg SUBCUT Q24H [facility] Haloperidol Lactate (Haloperidol Lactate 5 Mg/Ml Sdv) 1 mg IM ONETIME ONE Stop: 03/26/21 14:17 Last Admin: 03/26/21 15:44 Dose: 1 mg Documented by: Lactated Ringer's (Ringers, Lactated) 1,000 mls @ 500 mls/hr IV ASDIRECTED [facility] Last Admin: 03/25/21 16:18 Dose: 500 mls/hr Documented by: Lactated Ringer's (Ringers, Lactated) 1,000 mls @ 100 mls/hr IV ASDIRECTED [facility] Stop: 03/26/21 06:59 Last Admin: 03/25/21 21:42 Dose: 125 mls/hr Documented by: Magnesium Sulfate 2 gm/ Premix 50 mls @ 12.5 mls/hr IV ONETIME ONE Stop: 03/26/21 11:55 Last Admin: 03/26/21 08:22 Dose: 12.5 mls/hr Documented by: Ondansetron HCl (Ondansetron 4 Mg/2 Ml Sdv) 4 mg IVPUSH Q4H PRN PRN Reason: Nausea/Vomiting Last Admin: 03/26/21 10:07 Dose: 4 mg Documented by: Potassium Chloride (Potassium Chloride 20 Meq Tab.Er) 40 meq PO ONETIME ONE Stop: 03/26/21 07:57 Last Admin: 03/26/21 08:22 Dose: 40 meq Documented by: - Exam General: Reports: Alert, Oriented, Cooperative HEENT: Reports: Mucous Membr. Moist/Backus Neck: Reports: Trachea Midline Lungs: Reports: Clear to Auscultation, Normal Respiratory Effort Cardiovascular: Reports: Regular Rate, Regular Rhythm, No Murmurs GI/Abdominal Exam: Normal Bowel Sounds, Soft, Non-Tender <Soham Balderas - Last Filed: 03/29/21 21:32> Discharge Summary - Referral to Home Health Primary Care Physician: PCP None - Patient Data Vitals - Most Recent: Last Vital Signs Temp 36.2 C 03/28/21 12:00 Pulse 70 03/28/21 12:00 Resp 15 03/28/21 12:00 BP 138/45 L 03/28/21 12:00 Pulse Ox 96 03/28/21 12:00 Med Orders - Current: Current Medications Discontinued Medications Acetaminophen (Acetaminophen 325 Mg Tab) 650 mg PO Q4H PRN PRN Reason: Pain (Mild 1-3)/fever Last Admin: 03/28/21 03:17 Dose: 650 mg Documented by: Aspirin (Aspirin 81 Mg Tab.Chew) 324 mg PO ONETIME ONE Stop: 03/25/21 15:13 Last Admin: 03/25/21 15:17 Dose: 324 mg Documented by: Aspirin (Aspirin 81 Mg Tab.Chew) 81 mg PO DAILY [facility] Last Admin: 03/28/21 08:51 Dose: 81 mg Documented by: Al Hydroxide/Mg Hydroxide 15 (ml/ Lidocaine HCl 5 ml) 0 ml PO ONETIME ONE Stop: 03/25/21 15:43 Last Admin: 03/25/21 15:51 Dose: 1 each Documented by: Dextrose/Water (50% Dextrose In Water 50 Ml Syringe) 50 ml IVPUSH ASDIRECTED PRN PRN Reason: Hypoglycemia Enoxaparin Sodium (Enoxaparin 40 Mg/0.4 Ml Syringe) 40 mg SUBCUT Q24H [facility] Glucagon (Glucagon,Human Recombinant 1 Mg Vial) 1 mg IM ASDIRECTED PRN PRN Reason: Hypoglycemia Guaifenesin/Codeine Phosphate (Codeine/Guaifenesin 10-100 Mg/5 Ml Syrup 5 Ml Cup) 5 ml PO Q6H PRN PRN Reason: Cough Last Admin: 03/27/21 20:48 Dose: 5 ml Documented by: Haloperidol Lactate (Haloperidol Lactate 5 Mg/Ml Sdv) 1 mg IM ONETIME ONE Stop: 03/26/21 14:17 Last Admin: 03/26/21 15:44 Dose: 1 mg Documented by: Hydroxyzine HCl (Hydroxyzine Hcl 25 Mg Tab) 25 mg PO Q8H PRN PRN Reason: Dizziness Lactated Ringer's (Ringers, Lactated) 1,000 mls @ 500 mls/hr IV ASDIRECTED [facility] Last Admin: 03/25/21 16:18 Dose: 500 mls/hr Documented by: Pantoprazole Sodium 40 mg/ (Sodium Chloride) 10 mls @ 300 mls/hr IV Q24H [facility] Last Admin: 03/27/21 20:48 Dose: 300 mls/hr Documented by: Lactated Ringer's (Ringers, Lactated) 1,000 mls @ 100 mls/hr IV ASDIRECTED [facility] Stop: 03/26/21 06:59 Last Admin: 03/25/21 21:42 Dose: 125 mls/hr Documented by: Magnesium Sulfate 2 gm/ Premix 50 mls @ 12.5 mls/hr IV ONETIME ONE Stop: 03/26/21 11:55 Last Admin: 03/26/21 08:22 Dose: 12.5 mls/hr Documented by: Insulin Aspart (Insulin Aspart 100 Units/Ml 3 Ml Pen) 0 unit SUBCUT TIDAC [facility]; Protocol Last Admin: 03/28/21 07:21 Dose: Not Given Documented by: Levothyroxine Sodium (Levothyroxine 150 Mcg Tab) 150 mcg PO ACBREAKFAST [facility] Last Admin: 03/28/21 06:31 Dose: 150 mcg Documented by: Levothyroxine Sodium (Levothyroxine 25 Mcg Tab) 25 mcg PO ACBREAKFAST [facility] Last Admin: 03/28/21 06:31 Dose: 25 mcg Documented by: Melatonin (Melatonin 3 Mg Tab) 6 mg PO BEDTIME PRN PRN Reason: Insomnia Last Admin: 03/27/21 20:48 Dose: 6 mg Documented by: Metoclopramide HCl (Metoclopramide 10 Mg/2 Ml Sdv) 5 mg IVPUSH Q4H PRN PRN Reason: Nausea/Vomiting Last Admin: 03/26/21 20:42 Dose: 5 mg Documented by: Metoprolol Tartrate (Metoprolol Tartrate 25 Mg Tab) 25 mg PO Q12HR [facility] Last Admin: 03/28/21 08:52 Dose: 25 mg Documented by: Ondansetron HCl (Ondansetron 4 Mg/2 Ml Sdv) 4 mg IVPUSH Q4H PRN PRN Reason: Nausea/Vomiting Last Admin: 03/26/21 10:07 Dose: 4 mg Documented by: Potassium Chloride (Potassium Chloride 20 Meq Tab.Er) 40 meq PO ONETIME ONE Stop: 03/26/21 07:57 Last Admin: 03/26/21 08:22 Dose: 40 meq Documented by: Prednisone (Prednisone 20 Mg Tab) 40 mg PO WITHBREAKFAST [facility] Last Admin: 03/28/21 08:52 Dose: 40 mg Documented by: - Free Text/Narrative Note: I have seen and examined the patient. I have discussed findings and treatment plan with the resident. I agree with the assessment and plan outlined in the following note.
== END 2021-03-28 13:25 | disposition home or self-care (01) ==
LOC: MW.ED 14:18 → MW.MS 18:09
PROVIDERS: ADMIT Student in an Organized Health Care Education/Training Program; ATTEND Student in an Organized Health Care Education/Training Program
DX: R07.9 Chest pain, unspecified (principal); I48.91 Unspecified atrial fibrillation; I11.0 Hypertensive heart disease with heart failure; I50.9 Heart failure, unspecified; E11.9 Type 2 diabetes mellitus without complications; J44.9 Chronic obstructive pulmonary disease, unspecified; K21.9 Gastro-esophageal reflux disease without esophagitis; I25.2 Old myocardial infarction; E03.9 Hypothyroidism, unspecified; N17.9 Acute kidney failure, unspecified; U07.1 COVID-19; E66.2 Morbid (severe) obesity with alveolar hypoventilation; Z79.890 Hormone replacement therapy; Z88.0 Allergy status to penicillin; Z88.8 Allergy status to other drugs, medicaments and biological substances; Z79.82 Long term (current) use of aspirin; Z79.899 Other long term (current) drug therapy; Z20.822 Contact with and (suspected) exposure to COVID-19
CPT/HCPCS: 36415; 71045; 80048; 80053; 81003; 82947; 83605; 83735; 83880; 84484; 85025; 85610; 93005; 96365; 96372; 96375; 96376; 99285; A9270; C9113; G0378; J1630; J1815; J2405; J2765; J3475; J7120; U0002